=== PATIENT | male | born 1955 | race Caucasian/White ===

== ENCOUNTER → 2017-02-09 | Outpatient (CLI) | payer BC ==
[2017-02-09 17:26] LABS: EKG EKG PERFORMED
[2017-02-09 17:42] LABS: CH 30.3; CHCM 32.8; HCT 43.8 % (39.0-53.0); HDW 2.48; MCH 31.8 pg (25.0-35.0); MCHC 34.3 g/dL (31.0-37.0); MCV 92.8 fL (80.0-100.0); Mean Platelet Volume 8.5; RBC 4.72 m/uL (4.30-5.90); RDW 12.8 % (11.5-15.5); WBC 12.1 k/uL (3.8-10.6)
[2017-02-09 18:00] LABS: ALT 43 U/L (21-72); AST 27 U/L (17-59); Alkaline Phosphatase 89 U/L (38-126); Anion Gap 13 mmol/L; Blood Urea Nitrogen 22 mg/dL (9-20); Calcium 9.9 mg/dL (8.4-10.2); Carbon Dioxide 25 mmol/L (22-30); Chloride 108 mmol/L (98-107); Cholesterol 158 mg/dL (<200); Glucose 96 mg/dL (74-99); HDL Cholesterol 54 mg/dL (40-60); Iron 75 ug/dL (49-181); Non-African American GFR(MDRD) >60 (>60 ml/min/1.73 sqM); Potassium 4.5 mmol/L (3.5-5.1); Sodium 146 mmol/L (137-145); Total Bilirubin 0.4 mg/dL (0.2-1.3); Total Protein 7.3 g/dL (6.3-8.2)
[2017-02-09 18:10] LABS: Total Iron Binding Capacity 289 ug/dL (261-462)
[2017-02-09 19:05] LABS: Vitamin B12 685 pg/mL (239-931)
[2017-02-09 21:19] LABS: Hemoglobin A1C 5.7 % (4.2-6.1)
[2017-02-10 11:43] VITALS: BP 130/61; PULSE 81; TEMP 98.4; BMI 44.9
--- NOTE | 2017-03-05 22:55 | P.PN ---
Progress Note - Text DATE OF SERVICE: 02/09/2017 CHIEF COMPLAINT: Initial bariatric assessment. HISTORY OF PRESENT ILLNESS: Oral Retana is a 61-year-old male who presents for the first time at the bariatric center. He comes in with concerns of gastroesophageal reflux disease for over 30 years. He has been on Protonix. He had a previous upper endoscopy many years ago. His highest weight was 305 pounds. His personal goal is to get under 200 pounds. He has history of asthma exacerbated by his reflux disease. He also reports developing sleep apnea, hypertension, including diabetes from his obesity. He has a family history of gallbladder disease in his mother including father who both had cholecystectomy. He currently goes to a gym at least once a week. Now he presents for surgical evaluation particularly for a gastric bypass. PAST MEDICAL HISTORY: 1. Asthma 2. Coronary artery disease. 3. Hyperlipidemia. 4. Hypertension. 5. Sleep apnea. 6. Lung cancer. PAST SURGICAL HISTORY: 1. EGD 2. Appendectomy 3. Bowel resection 4. Heart catheterization 5. Left carpal tunnel surgery. 6. Retina Surgery. MEDICATIONS: 1. Albuterol inhaler. 2. [place] 3. Albuterol nebulizer 4. Tylenol 5. Sulfasalazine 6. Breo Ellipta inhaler. 7. Aspirin 8. Etodolac 9. Protonix 10. Losartan Hydrochlorothiazide 11. Zoloft 12. Verapamil 13. Bentyl 14. Cardura 15. Singulair. ALLERGIES: Denies. SOCIAL HISTORY: No current tobacco use. FAMILY HISTORY: Significant for diabetes and gallbladder disease.. REVIEW OF ORGAN SYSTEMS: CONSTITUTIONAL: His highest weight for 5-foot, 9-inch frame was 305 pounds. [place] body weight is 168 pounds. He is 136 pounds overweight. His body mass index is 45. GASTROINTESTINAL: No gastroesophageal reflux disease. No constipation or diarrhea. ENDOCRINE: Has diabetes. Has thyroid issues. MUSCULOSKELETAL: Has osteoarthritis of the bilateral knees. Has lower back pain. HEENT: Denies any troubles with vision. Denies any tinnitus. RESPIRATORY: Has asthma. Has obstructive sleep apnea. CARDIOVASCULAR: Has hypertension including hyperlipidemia. NEURO: Denies any numbness or tingling of the lower extremities. No reports of strokes. PSYCH: History of anxiety including depression. HEMATOLOGIC: No reports of easy bruising or easy bleeding. SKIN: No skin cancer or recent rash. PHYSICAL EXAM: VITAL SIGNS: 5 feet 9 inch, 304 pounds. Body mass index 45.0. Vital Signs 02/09/17 11:36 Temperature 98.4 F Pulse Rate 81 Blood Pressure 130/61 GENERAL: Well-developed male in no acute distress. ABDOMEN: No palpable incisional hernias. Soft, nontender, nondistended. MUSCULOSKELETAL: Bilateral 1+ trace pitting edema. No clubbing, cyanosis. HEENT: No sclera icterus. Extraocular movements grossly intact. Moist buccal mucosa. Head is atraumatic, normocephalic. Hears conversational speech. No nasal drainage. NECK: Supple without lymphadenopathy. No JV distention. CHEST: Non-labored respirations and equal bilateral excursions. CARDIOVASCULAR: Regular rate and rhythm. Palpable 2+ radial pulses. NEUROLOGIC: No focal or lateralizing signs. Cranial nerves II through XII grossly intact. PSYCH: Appropriate affect. Alert and oriented to person, place and time. SKIN: Good skin turgor. Well-perfused. LABS: Laboratory Last Values WBC 12.1 k/uL (3.8-10.6) H 02/09/17 17:19 RBC 4.72 m/uL (4.30-5.90) 02/09/17 17:19 Hgb 15.0 gm/dL (13.0-17.5) 02/09/17 17:19 Hct 43.8 % (39.0-53.0) 02/09/17 17:19 MCV 92.8 fL (80.0-100.0) 02/09/17 17:19 MCH 31.8 pg (25.0-35.0) 02/09/17 17: MCHC 34.3 g/dL (31.0-37.0) 02/09/17 17:19 RDW 12.8 % (11.5-15.5) 02/09/17 17:19 Plt Count 190 k/uL (150-450) 02/09/17 17:19 Sodium 146 mmol/L (137-145) H 02/09/17 17:19 Potassium 4.5 mmol/L (3.5-5.1) 02/09/17 17:19 Chloride 108 mmol/L (98-107) H 02/09/17 17:19 Carbon Dioxide 25 mmol/L (22-30) 02/09/17 17:19 Anion Gap 13 mmol/L 02/09/17 17:19 BUN 22 mg/dL (9-20) H 02/09/17 17:19 Creatinine 0.90 mg/dL (0.66-1.25) 02/09/17 17:19 Est GFR (MDRD) Af Amer >60 (>60 ml/min/1.73 sqM) 02/09/17 17:19 Est GFR (MDRD) Non-Af >60 (>60 ml/min/1.73 sqM) 02/09/17 17:19 Glucose 96 mg/dL (74-99) 02/09/17 17:[address] Glu mg/dL 117 mg/dL 02/09/17 17:19 Hemoglobin A1c 5.7 % (4.2-6.1) 02/09/17 17: Calcium 9.9 mg/dL (8.4-10.2) 02/09/17 17: Iron 75 ug/dL (49-181) 02/09/17 17: TIBC 289 ug/dL (261-462) 02/09/17 17: % Saturation 26.0 % (20-50) 02/09/17 17: Ferritin 156 ng/mL (18-464) 02/09/17 17:19 Total Bilirubin 0.4 mg/dL (0.2-1.3) 02/09/17 17:19 AST 27 U/L (17-59) 02/09/17 17:19 ALT 43 U/L (21-72) 02/09/17 17:19 Alkaline Phosphatase 89 U/L (38-126) 02/09/17 17:19 Total Protein 7.3 g/dL (6.3-8.2) 02/09/17 17:19 Albumin 4.5 g/dL (3.5-5.0) 02/09/17 17:19 Triglycerides 241 mg/dL (<150) H 02/09/17 17:19 Cholesterol 158 mg/dL (<200) 02/09/17 17:19 LDL Cholesterol, Calc 56 mg/dL (0-99) 02/09/17 17:19 HDL Cholesterol 54 mg/dL (40-60) 02/09/17 17:19 Vitamin B1 72 ug/L (38-122) 02/09/17 17:19 Vitamin B12 685 pg/mL (239-931) 02/09/17 17:19 Vitamin D 25-Hydroxy 30.8 ng/mL (30.0-100.0) 02/09/17 17:19 Folate 10.10 ng/mL (>2.75) 02/09/17 17:19 TSH 2.640 mIU/L (0.465-4.680) 02/09/17 17: U Nicotine Metabolite Negative 02/09/17 17:19 EKG EKG PERFORMED 02/09/17 17:19 EKG: History of lateral ischemia, ectopy with abnormal findings. ASSESSMENT: 1. Morbid obesity due to excess caloric intake. 2. Body mass index reduced 45.0. 3. Severe gastroesophageal reflux disease. 4. Coronary artery disease. 5. Osteoarthritis of the bilateral knees secondary to morbid obesity. 6. Asthma. 7. Hypertensive heart disease with coagulopathy. 8. Obstructive sleep apnea. 9. Past history of bowel surgery. 10. Ulcerative colitis. 11. Family history of gallbladder disease. 12. Personal history of past lung cancer. 13. Dietary surveillance and counseling. PLAN: 1. Recommend bariatric metabolic panel. 2. All surgical options including band, sleeve and Jessica-en-Y gastric bypass was described in detail. With his history of severe gastroesophageal reflux disease, he is looking into a gastric bypass. 3. The [place] bariat[facility] surgical collaborative data was also reviewed for resolution of comorbidities including risks. 4. Recommend dietary surveillance and counseling for 6 months. 5. Recommend EKG assessment for history of baseline cardiac disease. 6. Will need cardiac clearance. 7. Will need medical risk assessment. 8. Psych assessment per insurance guidelines. 9. He has CPAP for obstructive sleep apnea. 10. Recommend screening for gallbladder disorder with his strong family history of gallbladder disease.
== END | disposition home or self-care (01) ==
LOC: BARWHC3 14:46
PROVIDERS: ATTEND Surgery Plastic and Reconstructive Surgery
DX: Z48.815 Encounter for surgical aftercare following surgery on the digestive system (principal); E66.01 Morbid (severe) obesity due to excess calories; K21.9 Gastro-esophageal reflux disease without esophagitis; I25.10 Atherosclerotic heart disease of native coronary artery without angina pectoris; M17.0 Bilateral primary osteoarthritis of knee; I11.9 Hypertensive heart disease without heart failure; G47.33 Obstructive sleep apnea (adult) (pediatric); K51.90 Ulcerative colitis, unspecified, without complications; K82.8 Other specified diseases of gallbladder; J45.909 Unspecified asthma, uncomplicated; E89.1 Postprocedural hypoinsulinemia; D50.8 Other iron deficiency anemias; E44.0 Moderate protein-calorie malnutrition; E55.9 Vitamin D deficiency, unspecified; Z68.41 Body mass index [BMI] 40.0-44.9, adult; Z79.51 Long term (current) use of inhaled steroids; Z79.82 Long term (current) use of aspirin; Z79.899 Other long term (current) drug therapy; Z98.84 Bariatric surgery status
CPT/HCPCS: 36415; 80053; 80061; 80307; 82306; 82607; 82728; 82746; 83036; 83540; 83550; 84425; 84443; 85027; 93005; 99211

== ENCOUNTER 2017-03-02 08:11 | Day surgery (SDC) | payer BC ==
[2017-02-28 12:42] VITALS: BMI 42.2
[~2017-03-02 08:11] MED LIST: LACTATED RINGERS 1,000 ML IV SCH; LIDOCAINE 1% 20 ML VIAL (10MG/ML) FOR IV START INTRADERMA PRN
--- NOTE | 2017-03-02 08:29 | P.GSHP ---
History of Present Illness H&P Date: 03/02/17 CHIEF COMPLAINT: GERD HISTORY OF PRESENT ILLNESS: The patient is a 61-year-old male who presents reports gastroesophageal reflux disease. Upper endoscopy was offered for further evaluation and management. PAST MEDICAL HISTORY: Please see list. PAST SURGICAL HISTORY: Please see list. MEDICATIONS: Please see list. ALLERGIES: Please see list. SOCIAL HISTORY: No illicit drug use FAMILY HISTORY: No reports of Crohn disease or ulcerative colitis. REVIEW OF ORGAN SYSTEMS: CONSTITUTIONAL: No reports of fevers or chills. GI: Denies any blood in stools or constipation. PHYSICAL EXAM: VITAL SIGNS: Stable GENERAL: Well-developed and pleasant in no acute distress. HEENT: No scleral icterus. Extraocular movements grossly intact. Moist buccal mucosa. NECK: Supple without lymphadenopathy. CHEST: Unlabored respirations. Equal bilateral excursions. CARDIOVASCULAR: Regular rate and rhythm. Distal 2+ pulses. ABDOMEN: Soft, nondistended. MUSCULOSKELETAL: No clubbing, cyanosis, or edema. ASSESSMENT: 1. Gastroesophageal reflux disease PLAN: 1. Recommend proceeding with an upper endoscopy Past Medical History Past Medical History: Asthma, Coronary Artery Disease (CAD), GERD/Reflux, Hyperlipidemia, Hypertension, Prostate Disorder, Sleep Apnea/CPAP/BIPAP Additional Past Medical History / Comment(s): uses CPAP, IBS, lung nodule-dr. monitoring History of Any Multi-Drug Resistant Organisms: None Reported Past Surgical History: Appendectomy, Bowel Resection, Heart Catheterization, Orthopedic Surgery Additional Past Surgical History / Comment(s): repair detached retina recently, left carpal tunnel surgery,sinus surg. Past Anesthesia/Blood Transfusion Reactions: No Reported Reaction Smoking Status: Former smoker - Past Family History Mother Additional Family Medical History / Comment(s): hx. of blood clot somewhere Medications and Allergies Home Medications Medication Instructions Recorded Confirmed Type Acetaminophen Tab [Tylenol] 500 mg PO Q4-6H PRN 02/10/17 02/28/17 History Albuterol Inhaler [Ventolin Hfa 1 puff INHALATION Q6H PRN 02/10/17 02/28/17 History Inhaler] Albuterol Sulfate (Bottle) 1 puff INHALATION Q6H PRN 02/10/17 02/28/17 History [Ventolin] Aspirin 325 mg PO DAILY 02/10/17 02/28/17 History Dicyclomine [Bentyl] 20 mg PO BID 02/10/17 02/28/17 History Doxazosin Mesylate [Cardura] 8 mg PO HS 02/10/17 02/28/17 History Etodolac [Lodine] 800 mg PO DAILY 02/10/17 02/28/17 History Finasteride [Proscar] 5 mg PO DAILY 02/10/17 02/28/17 History Fluticasone/Vilanterol [Breo 1 tab PO DAILY 02/10/17 02/28/17 History Ellipta 100-25 Mcg Inhaler] HYDROcodone/APAP 5-325MG [[place] 1 tab PO Q6H PRN 02/10/17 02/28/17 History 5-325] Losartan/Hydrochlorothiazide 1 tab PO DAILY 02/10/17 02/28/17 History [Hyzaar 100-25 Tablet] Montelukast [Singulair] 10 mg PO DAILY 02/10/17 02/28/17 History Pantoprazole Sodium [Protonix] 40 mg PO DAILY 02/10/17 02/28/17 History Sertraline [Zoloft] 150 mg PO DAILY 02/10/17 02/28/17 History Verapamil HCl [Verapamil ER] 240 mg PO DAILY 02/10/17 02/28/17 History sulfaSALAzine [Azulfidine] 1,000 mg PO BID 02/10/17 02/28/17 History Allergies Allergy/AdvReac Type Severity Reaction Status Date / Time No Known Allergies Allergy Verified 02/28/17 12:36
[2017-03-02 08:40] VITALS: TEMP 97.6
[2017-03-02] MEDS ORDERED: GLYCOPYRROLATE 0.2 MG/ML 2 ML VIAL ONE (09:04)
[2017-03-02] MEDS ORDERED: LIDOCAINE 1% INJ 10MG/ML (20 ML MDV) ONE (09:04)
[2017-03-02] MEDS ORDERED: KETAMINE 10 MG/ML 20 ML VIAL ONE (09:04)
[2017-03-02] MEDS ORDERED: PROPOFOL 10 MG/ML 20 ML VIAL IV ONE (09:04)
[2017-03-02 10:00] VITALS: BP 136/82; PULSE 90; RESP 24
--- NOTE | 2017-03-04 15:24 | P.PCN ---
Date of Procedure: 03/02/17 Preoperative Diagnosis: Postoperative Diagnosis: Procedure(s) Performed: Implants: Indications for Procedure: Operative Findings: Description of Procedure: PREOPERATIVE DIAGNOSIS: Gastroesophageal reflux disease. Morbid obesity. POSTOPERATIVE DIAGNOSIS: Morbid obesity. Gastritis. Gastroesophageal reflux disease. Diaphragmatic hiatal hernia without obstruction. OPERATION: Esophagogastroduodenoscopy with biopsies along antrum. SURGEON: Kandi Calzada MD ANESTHESIA: MAC. INDICATIONS: The patient is a 61-year-old male who presents with a history of reflux disease. Benefits and risks of the procedure were described. Informed consent was obtained. DESCRIPTION: The patient was brought into the endoscopy suite and laid in the left lateral decubitus position. An Olympus gastroscope was passed along the posterior oropharynx down to the distal esophagus where the squamocolumnar junction was encountered at 40 cm from the incisors. The stomach was entered and no bile reflux was found. Additional findings are listed below. Biopsies with cold forceps were obtained of the antrum. The first through third portion of the duodenum was examined and unremarkable. Retroflexion of the scope confirmed Hill grade 4 lower esophageal valve. The squamocolumnar junction demostrated LA grade A erosive esophagitis. The stomach was desufflated. The patient tolerated the procedure well. FINDINGS: Squamocolumnar junction 40 cm from the incisors. Diaphragmatic hiatus at 42 cm. Hiatal hernia 2 cm, sliding hiatal hernia. Hill grade 4 lower esophageal valve. LA grade A erosive esophagitis. No active duodenitis. Chronic gastritis. RECOMMENDATIONS: Continue medical therapy. Further recommendations pending results of pathology report. Upper endoscopy as needed. Plan - Discharge Summary New Discharge Prescriptions: No Action Montelukast [Singulair] 10 mg PO DAILY Doxazosin Mesylate [Cardura] 8 mg PO HS Dicyclomine [Bentyl] 20 mg PO BID Verapamil HCl [Verapamil ER] 240 mg PO DAILY Sertraline [Zoloft] 150 mg PO DAILY Losartan/Hydrochlorothiazide [Hyzaar 100-25 Tablet] 1 tab PO DAILY Pantoprazole Sodium [Protonix] 40 mg PO DAILY Etodolac [Lodine] 800 mg PO DAILY Aspirin 325 mg PO DAILY Finasteride [Proscar] 5 mg PO DAILY sulfaSALAzine [Azulfidine] 1,000 mg PO BID Fluticasone/Vilanterol [Breo Ellipta 100-25 Mcg Inhaler] 1 tab PO DAILY Albuterol Sulfate (Bottle) [Ventolin] 1 puff INHALATION Q6H PRN PRN Reason: Dyspnea Acetaminophen Tab [Tylenol] 500 mg PO Q4-6H PRN PRN Reason: Pain HYDROcodone/APAP 5-325MG [[place] 5-325] 1 tab PO Q6H PRN PRN Reason: Pain Albuterol Inhaler [Ventolin Hfa Inhaler] 1 puff INHALATION Q6H PRN PRN Reason: Dyspnea Discharge Medication List Acetaminophen Tab [Tylenol] 500 mg PO Q4-6H PRN 02/10/17 [History] Albuterol Inhaler [Ventolin Hfa Inhaler] 1 puff INHALATION Q6H PRN 02/10/17 [ History] Albuterol Sulfate (Bottle) [Ventolin] 1 puff INHALATION Q6H PRN 02/10/17 [ History] Aspirin 325 mg PO DAILY 02/10/17 [History] Dicyclomine [Bentyl] 20 mg PO BID 02/10/17 [History] Doxazosin Mesylate [Cardura] 8 mg PO HS 02/10/17 [History] Etodolac [Lodine] 800 mg PO DAILY 02/10/17 [History] Finasteride [Proscar] 5 mg PO DAILY 02/10/17 [History] Fluticasone/Vilanterol [Breo Ellipta 100-25 Mcg Inhaler] 1 tab PO DAILY [History] HYDROcodone/APAP 5-325MG [[place] 5-325] 1 tab PO Q6H PRN 02/10/17 [History] Losartan/Hydrochlorothiazide [Hyzaar 100-25 Tablet] 1 tab PO DAILY 02/10/17 [ History] Montelukast [Singulair] 10 mg PO DAILY 02/10/17 [History] Pantoprazole Sodium [Protonix] 40 mg PO DAILY 02/10/17 [History] Sertraline [Zoloft] 150 mg PO DAILY 02/10/17 [History] Verapamil HCl [Verapamil ER] 240 mg PO DAILY 02/10/17 [History] sulfaSALAzine [Azulfidine] 1,000 mg PO BID 02/10/17 [History]
== END 2017-03-02 10:01 | disposition home or self-care (01) ==
LOC: ORWHC2ENDO 08:11
PROVIDERS: ATTEND Surgery Plastic and Reconstructive Surgery
DX: K22.10 Ulcer of esophagus without bleeding (principal); K29.50 Unspecified chronic gastritis without bleeding; K31.89 Other diseases of stomach and duodenum; K44.9 Diaphragmatic hernia without obstruction or gangrene; J45.909 Unspecified asthma, uncomplicated; Z87.891 Personal history of nicotine dependence; I25.10 Atherosclerotic heart disease of native coronary artery without angina pectoris; I10 Essential (primary) hypertension; N42.9 Disorder of prostate, unspecified; G47.33 Obstructive sleep apnea (adult) (pediatric); Z99.89 Dependence on other enabling machines and devices; Z79.82 Long term (current) use of aspirin; Z79.1 Long term (current) use of non-steroidal anti-inflammatories (NSAID); Z79.51 Long term (current) use of inhaled steroids; Z79.899 Other long term (current) drug therapy
CPT/HCPCS: 88305; 88342; 43239; J2001; J2704

== ENCOUNTER → 2017-03-16 | Outpatient (CLI) | payer BC ==
[2017-03-16 15:13] VITALS: BP 143/75; PULSE 76; RESP 16; TEMP 97.9; BMI 44.7
--- NOTE | 2017-04-23 15:01 | P.PN ---
Progress Note - Text DATE OF SERVICE: 03/16/2017 CHIEF COMPLAINT: Initial bariatric assessment. HISTORY OF PRESENT ILLNESS: Oral Retana is a 61-year-old male who initially presented to the bariatric center in January 2017. Since then, he has lost 2 pounds. He recently had eye surgery. At his height of 5 foot 9 inches, he comes in today weighing 302 pounds. He has lost 3 pounds in 2 months. His ideal body weight is 168 pounds. He is 134 pounds overweight. Body mass index is reduced from 45.1 down 44.7. As a result of his obesity, he has developed obstructive sleep apnea, hypertension, diabetes type 2 and has gastroesophageal disease. He has completed an upper endoscopy. He is looking into a sleeve gastrectomy instead of her gastric bypass. His personal goal is to come off all his medications for his diabetes. PAST MEDICAL HISTORY: 1. Asthma 2. Coronary artery disease. 3. Hyperlipidemia. 4. Hypertension. 5. Sleep apnea. 6. Lung cancer. 7. Gastroesophageal reflux disease. PAST SURGICAL HISTORY: 1. EGD 2. Appendectomy 3. Bowel resection 4. Heart catheterization 5. Left carpal tunnel surgery. 6. Retina Surgery. MEDICATIONS: 1. Albuterol inhaler. 2. [place] 3. Albuterol nebulizer 4. Tylenol 5. Sulfasalazine 6. Breo Ellipta inhaler. 7. Aspirin 8. Etodolac 9. Protonix 10. Losartan Hydrochlorothiazide 11. Zoloft 12. Verapamil 13. Bentyl 14. Cardura 15. Singulair. ALLERGIES: Denies. SOCIAL HISTORY: No current tobacco use. FAMILY HISTORY: Significant for diabetes and gallbladder disease.. REVIEW OF ORGAN SYSTEMS: CONSTITUTIONAL: His highest weight for 5-foot, 9-inch frame was 305 pounds. Max body weight is 168 pounds. He is 134 pounds overweight. His body mass index is 44.7 GASTROINTESTINAL: No gastroesophageal reflux disease. No constipation or diarrhea. ENDOCRINE: Has diabetes. Has thyroid issues. MUSCULOSKELETAL: Has osteoarthritis of the bilateral knees. Has lower back pain. HEENT: Denies any troubles with vision. Denies any tinnitus. RESPIRATORY: Has asthma. Has obstructive sleep apnea. CARDIOVASCULAR: Has hypertension including hyperlipidemia. NEURO: Denies any numbness or tingling of the lower extremities. No reports of strokes. PSYCH: History of anxiety including depression. HEMATOLOGIC: No reports of easy bruising or easy bleeding. SKIN: No skin cancer or recent rash. PHYSICAL EXAM: VITAL SIGNS: 5 feet 9 inch, 302 pounds. Body mass index 44.7. Vital Signs Temp 97.9 F 03/16/17 15:05 Pulse 76 03/16/17 15:05 Resp 16 03/16/17 15:05 BP 143/75 03/16/17 15:05 Pulse Ox GENERAL: Well-developed male in no acute distress. ABDOMEN: No palpable incisional hernias. Soft, nontender, nondistended. MUSCULOSKELETAL: Bilateral 1+ trace pitting edema. No clubbing, cyanosis. HEENT: No sclera icterus. Extraocular movements grossly intact. Moist buccal mucosa. Head is atraumatic, normocephalic. Hears conversational speech. No nasal drainage. NECK: Supple without lymphadenopathy. No JV distention. CHEST: Non-labored respirations and equal bilateral excursions. CARDIOVASCULAR: Regular rate and rhythm. Palpable 2+ radial pulses. NEUROLOGIC: No focal or lateralizing signs. Cranial nerves II through XII grossly intact. PSYCH: Appropriate affect. Alert and oriented to person, place and time. SKIN: Good skin turgor. Well-perfused. LABS: Reviewed demonstrating leukocytosis. Also moderately elevated triglyceride levels. Laboratory Last Values WBC 12.1 k/uL (3.8-10.6) H 02/09/17 17:19 RBC 4.72 m/uL (4.30-5.90) 02/09/17 17:19 Hgb 15.0 gm/dL (13.0-17.5) 02/09/17 17:19 Hct 43.8 % (39.0-53.0) 02/09/17 17:19 MCV 92.8 fL (80.0-100.0) 02/09/17 17:19 MCH 31.8 pg (25.0-35.0) 02/09/17 17:19 MCHC 34.3 g/dL (31.0-37.0) 02/09/17 17:19 RDW 12.8 % (11.5-15.5) 02/09/17 17:19 Plt Count 190 k/uL (150-450) 02/09/17 17:19 Sodium 146 mmol/L (137-145) H 02/09/17 17:19 Potassium 4.5 mmol/L (3.5-5.1) 02/09/17 17:19 Chloride 108 mmol/L (98-107) H 02/09/17 17:19 Carbon Dioxide 25 mmol/L (22-30) 02/09/17 17:19 Anion Gap 13 mmol/L 02/09/17 17:19 BUN 22 mg/dL (9-20) H 02/09/17 17:19 Creatinine 0.90 mg/dL (0.66-1.25) 02/09/17 17:19 Est GFR (MDRD) Af Amer >60 (>60 ml/min/1.73 sqM) 02/09/17 17:19 Est GFR (MDRD) Non-Af >60 (>60 ml/min/1.73 sqM) 02/09/17 17:19 Glucose 96 mg/dL (74-99) 02/09/17 17:[address] Glu mg/dL 117 mg/dL 02/09/17 17:19 Hemoglobin A1c 5.7 % (4.2-6.1) 02/09/17 17:19 Calcium 9.9 mg/dL (8.4-10.2) 02/09/17 17:19 Iron 75 ug/dL (49-181) 02/09/17 17:19 TIBC 289 ug/dL (261-462) 02/09/17 17:19 % Saturation 26.0 % (20-50) 02/09/17 17:19 Ferritin 156 ng/mL (18-464) 02/09/17 17:19 Total Bilirubin 0.4 mg/dL (0.2-1.3) 02/09/17 17:19 AST 27 U/L (17-59) 02/09/17 17:19 ALT 43 U/L (21-72) 02/09/17 17:19 Alkaline Phosphatase 89 U/L (38-126) 02/09/17 17:19 Total Protein 7.3 g/dL (6.3-8.2) 02/09/17 17:19 Albumin 4.5 g/dL (3.5-5.0) 02/09/17 17:19 Triglycerides 241 mg/dL (<150) H 02/09/17 17:19 Cholesterol 158 mg/dL (<200) 02/09/17 17: LDL Cholesterol, Calc 56 mg/dL (0-99) 02/09/17 17: HDL Cholesterol 54 mg/dL (40-60) 02/09/17 17: Vitamin B1 72 ug/L (38-122) 02/09/17 17: Vitamin B12 685 pg/mL (239-931) 02/09/17: Vitamin D 25-Hydroxy 30.8 ng/mL (30.0-100.0) 02/09/17 17: Folate 10.10 ng/mL (>2.75) 02/09/17 17: TSH 2.640 mIU/L (0.465-4.680) 02/09/17 U Nicotine Metabolite Negative 02/09/17 17: EKG EKG PERFORMED 02/09/17: EKG: History of lateral ischemia, ectopy with abnormal findings. EGD FINDINGS: Squamocolumnar junction 40 cm from the incisors. Diaphragmatic hiatus at 42 cm. Hiatal hernia 2 cm, sliding hiatal hernia. Hill grade 4 lower esophageal valve. LA grade A erosive esophagitis. No active duodenitis. Chronic gastritis. ASSESSMENT: 1. Morbid obesity due to excess caloric intake. 2. Body mass index reduced from 45.0 to 44.7. 3. Gastroesophageal reflux disease. 4. Coronary artery disease. 5. Osteoarthritis of the bilateral knees secondary to morbid obesity. 6. Asthma. 7. Hypertensive heart disease. 8. Obstructive sleep apnea. 11. Family history of gallbladder disease. 12. Abnormal EKG. 13. Dietary surveillance and counseling. 14. Diaphragmatic hiatal hernia. PLAN: 1. On review of his EKG, recommend cardiac risk assessment. 2. He is undergoing medically supervised weight loss per insurance guidelines of at least 6 months. 3. With his history of gastroesophageal reflux disease, he was forewarned for increased risk of symptoms post procedure following a sleeve gastrectomy. He demonstrated understanding of the risks. 4. He has elevated leukocytosis of unclear etiology. Will need repeat CBC. 5. Additionally, he has had eye surgery. Will need at minimum 30 days between procedures. 6. Follow up after completion of cardiac risk assessment.
== END | disposition home or self-care (01) ==
LOC: BARWHC3 14:47
PROVIDERS: ATTEND Surgery Plastic and Reconstructive Surgery
DX: Z48.815 Encounter for surgical aftercare following surgery on the digestive system (principal); E66.01 Morbid (severe) obesity due to excess calories; Z68.41 Body mass index [BMI] 40.0-44.9, adult; K21.9 Gastro-esophageal reflux disease without esophagitis; I25.10 Atherosclerotic heart disease of native coronary artery without angina pectoris; M17.0 Bilateral primary osteoarthritis of knee; I11.9 Hypertensive heart disease without heart failure; G47.33 Obstructive sleep apnea (adult) (pediatric); K44.9 Diaphragmatic hernia without obstruction or gangrene; R94.31 Abnormal electrocardiogram [ECG] [EKG]; J45.909 Unspecified asthma, uncomplicated; Z83.79 Family history of other diseases of the digestive system; Z79.899 Other long term (current) drug therapy; Z79.82 Long term (current) use of aspirin; Z79.1 Long term (current) use of non-steroidal anti-inflammatories (NSAID); Z85.118 Personal history of other malignant neoplasm of bronchus and lung; Z71.3 Dietary counseling and surveillance; Z98.84 Bariatric surgery status
CPT/HCPCS: 99211

== ENCOUNTER → 2017-06-01 | Outpatient (CLI) | payer BC ==
[2017-06-01 16:14] VITALS: BP 117/95; PULSE 77; RESP 16; TEMP 98.5; BMI 45.1
--- NOTE | 2017-07-25 20:42 | P.PN ---
Subjective Progress Note Date: 06/01/17 DATE OF SERVICE: 06/01/2017 CHIEF COMPLAINT: Bariatric assessment. HISTORY OF PRESENT ILLNESS: Oral Retana is a 61-year-old male who initially presented to the bariatric center in January 2017. His highest weight was 307 pounds. Today he comes in 305 pounds. His highest body mass index was 45.4. His ideal body weight is 168 pounds. He is 137 pounds overweight. He had completed cardiac risk assessment for abnormal EKG. His echocardiogram was within normal limits. Separately, he has severe gastroesophageal reflux disease and has been taking antacids for several decades. He also has a personal history of colitis including irritable bowel syndrome. He comes in today with complaints of an incisional ventral hernia. Separately, he is looking into sleeve gastrectomy. He also has history of a lung nodule. He has personal history of hiatal hernia. He now presents for further evaluation. PAST MEDICAL HISTORY: 1. Asthma 2. Coronary artery disease. 3. Hyperlipidemia. 4. Hypertension. 5. Sleep apnea. 6. Lung cancer. 7. Gastroesophageal reflux disease. PAST SURGICAL HISTORY: 1. EGD 2. Appendectomy 3. Bowel resection 4. Heart catheterization 5. Left carpal tunnel surgery. 6. Retina Surgery. MEDICATIONS: 1. Albuterol inhaler. 2. [place] 3. Albuterol nebulizer 4. Tylenol 5. Sulfasalazine 6. Breo Ellipta inhaler. 7. Aspirin 8. Etodolac 9. Protonix 10. Losartan Hydrochlorothiazide 11. Zoloft 12. Verapamil 13. Bentyl 14. Cardura 15. Singulair. ALLERGIES: Denies. SOCIAL HISTORY: No current tobacco use. FAMILY HISTORY: Significant for diabetes and gallbladder disease.. REVIEW OF ORGAN SYSTEMS: CONSTITUTIONAL: His highest weight for 5-foot, 9-inch frame was 307 pounds. [place] body weight is 168 pounds. He is 137 pounds overweight. His body mass index is 45.4. GASTROINTESTINAL: Has gastroesophageal reflux disease. No constipation or diarrhea. Has irritable bowel syndrome. ENDOCRINE: Has blood sugar close intolerance controlled with diet. No thyroid disorder. MUSCULOSKELETAL: Has osteoarthritis of the bilateral knees. Has lower back pain. HEENT: Denies any troubles with vision. Denies any tinnitus. RESPIRATORY: Has asthma. Has obstructive sleep apnea. CARDIOVASCULAR: Has hypertension including hyperlipidemia. NEURO: Denies any numbness or tingling of the lower extremities. No reports of strokes. PSYCH: History of anxiety including depression. HEMATOLOGIC: No reports of easy bruising or easy bleeding. SKIN: No skin cancer or recent rash. PHYSICAL EXAM: VITAL SIGNS: 5 feet 9 inch, 305 pounds. Body mass index 45.1. Vital Signs Temp 98.5 F 06/01/17 16:12 Pulse 77 06/01/17 16:12 Resp 16 06/01/17 16:12 BP 117/95 06/01/17 16:12 Pulse Ox GENERAL: Well-developed male in no acute distress. ABDOMEN: Soft, nontender, nondistended. Has 4 cm umbilical ventral hernia. MUSCULOSKELETAL: No clubbing, cyanosis or edema. HEENT: No sclera icterus. Extraocular movements grossly intact. Moist buccal mucosa. Head is atraumatic, normocephalic. Hears conversational speech. No nasal drainage. NECK: Supple without lymphadenopathy. No JV distention. CHEST: Non-labored respirations and equal bilateral excursions. CARDIOVASCULAR: Regular rate and rhythm. Palpable 2+ radial pulses. NEUROLOGIC: No focal or lateralizing signs. Cranial nerves II through XII grossly intact. PSYCH: Appropriate affect. Alert and oriented to person, place and time. SKIN: Good skin turgor. Well-perfused. EKG: History of lateral ischemia, ectopy with abnormal findings. EGD FINDINGS: Squamocolumnar junction 40 cm from the incisors. Diaphragmatic hiatus at 42 cm. Hiatal hernia 2 cm, sliding hiatal hernia. Hill grade 4 lower esophageal valve. ASSESSMENT: 1. Morbid obesity due to excess caloric intake. 2. Body mass index 45.1. 3. Gastroesophageal reflux disease. 4. Coronary artery disease. 5. Osteoarthritis of the bilateral knees secondary to morbid obesity. 6. Asthma. 7. Hypertensive heart disease. 8. Obstructive sleep apnea. 11. Family history of gallbladder disease. 12. Abnormal EKG. 13. Dietary surveillance and counseling. 14. Diaphragmatic hiatal hernia. 15. History of lung cancer with pulmonary nodule. PLAN: 1. As the patient has history of lung cancer, agree with CT of the chest for follow-up of pulmonary nodule. 2. Recommend CT of the abdomen and pelvis for history of ventral hernia. 3. He has history of hiatal hernia and symptomatic gastroesophageal reflux disease, recommend robotic-assisted laparoscopic hiatal hernia repair with mesh. 4. Additionally, recommend laparoscopic versus open ventral hernia repair. 5. He is looking into sleeve gastrectomy and recommend treatment of his reflux disease. 6. DVT prophylaxis. 7. Antibiotic prophylaxis. 8. Inpatient hospitalization for 2 nights. Objective - Vital Signs Vital signs: Vital Signs Temp 98.5 F 06/01/17 16:12 Pulse 77 06/01/17 16:12 Resp 16 06/01/17 16:12 BP 117/95 06/01/17 16:12 Pulse Ox Intake & Output 05/31/17 06/01/17 06/01/17 18:59 06:59 18:59 Weight 138.516 kg
== END ==
LOC: BARWHC3 14:57
PROVIDERS: ATTEND Surgery Plastic and Reconstructive Surgery
DX: Z48.815 Encounter for surgical aftercare following surgery on the digestive system (principal); E66.01 Morbid (severe) obesity due to excess calories; K21.9 Gastro-esophageal reflux disease without esophagitis; I25.10 Atherosclerotic heart disease of native coronary artery without angina pectoris; M17.0 Bilateral primary osteoarthritis of knee; J45.909 Unspecified asthma, uncomplicated; I11.9 Hypertensive heart disease without heart failure; G47.33 Obstructive sleep apnea (adult) (pediatric); R94.31 Abnormal electrocardiogram [ECG] [EKG]; K44.9 Diaphragmatic hernia without obstruction or gangrene; E78.5 Hyperlipidemia, unspecified; R91.1 Solitary pulmonary nodule; Z68.42 Body mass index [BMI] 45.0-49.9, adult; Z85.118 Personal history of other malignant neoplasm of bronchus and lung; Z79.899 Other long term (current) drug therapy; Z79.82 Long term (current) use of aspirin; Z79.1 Long term (current) use of non-steroidal anti-inflammatories (NSAID); Z71.3 Dietary counseling and surveillance; Z98.890 Other specified postprocedural states; Z90.89 Acquired absence of other organs
CPT/HCPCS: 99211

== ENCOUNTER → 2017-06-15 | Outpatient (CLI) | payer BC ==
[2017-06-15 09:07] LABS: Blood Urea Nitrogen 27 mg/dL (9-20); Non-African American GFR(MDRD) >60 (>60 ml/min/1.73 sqM)
--- NOTE | 2017-06-15 12:02 | US ---
EXAMINATION TYPE: US abdomen limited DATE OF EXAM: 06/15/2017 COMPARISON: NONE CLINICAL HISTORY: diverticulitis R10 abd pain. Bariatric prep. Patient states he has a lot of acid p roblems. NPO. Hx of bowel resection. EXAM MEASUREMENTS: Liver Length: 19.5 cm Gallbladder Wall: 0.3 cm CHD: 0.5 cm Right Kidney: 12.3 x 6.6 x 5.5 cm Limited exam due to overlying bowel gas and patient body habitus Pancreas: Obscured by bowel gas Liver: Enlarged. Echogenic and heterogenous in appearance. This finding limits evaluation for hepat ic masses although no focal masses or lesions identified. Gallbladder: wnl Evidence for sonographic Dior's sign: neg CBD: wnl as seen, suboptimal visualization due to overlying bowel gas Right Kidney: wnl IMPRESSION: 1. Findings most compatible with moderate degree hepatic steatosis. 2. No sonographic evidence of cholelithiasis or acute cholecystitis.
--- NOTE | 2017-06-15 15:07 | CT ---
EXAMINATION TYPE: CT ChestAbdPelvis w con DATE OF EXAM: 06/15/2017 INDICATION: Upper abdominal pain, diverticulitis, chest mass COMPARISON: NONE CT DLP: 3274.3 mGycm CONTRAST: Performed with Oral Contrast and with IV Contrast, patient injected with 100 mL of Omnipaque 300. TECHNIQUE: Axial images at 5 mm thick sections. Reconstructed images in the coronal plane. Delayed images through the kidneys. FINDINGS: CT CHEST: Portion of the thyroid visualized is normal. Subglottic airway is unremarkable. 0.3 cm punctate nodularities in the superior lateral right upper lung field. Series 3 image 23 lung w indows. A 0.4 cm nodules in the superior segment right lower lobe. Series 3 image 29 lung windows. Th ere is a 2.3 cm nodule which may have some central calcification in the right middle lobe periphery. Series 3 image 36 on lung windows. There is a 1.6 cm lymph node in the superior mediastinum adjacent to the trachea. Multiple small shot ty lymph nodes are present. There is a 1.4 cm lymph node within the pretracheal space above the level of the art near the aortic window level. Couple small right hilar lymph node may be present. Coronary artery calcification is noted. The ascending aorta diameter at the level of the main pulmonary artery is 3.2 cm. The main pulmonary artery diameter at the bifurcation is 2.[address] ABDOMEN: Liver: Normal Spleen: Normal Pancreas: Normal Adrenal glands: The medial limb left adrenal gland measures 1.4 cm. Left adrenal gland and right adre nal gland are otherwise unremarkable. Gallbladder: Normal Kidneys: No masses are evident. No hydronephrosis is present. There is a 7.4 cm cyst measuring 4 Ho unsfield units at superior lateral left kidney. Delayed images were obtained through the kidneys, wh ich remain unremarkable. Aorta: Vascular calcification is within the aorta. Inferior vena cava: Normal. CT PELVIS: Periumbilical hernia containing mesenteric fat is present. Loops of bowel within the abdomen and pelvis are normal. Scattered diverticuli are present through out the colon. There are loops of bowel which are incompletely distended or lack oral contrast limiti ng their evaluation. Appendix: Not identified Urinary bladder: Decompressed with limited evaluation. Genitourinary structures: Prostate is slightly prominent. Osseous structures: No suspicious lytic or sclerotic lesions. Facet hypertrophy is a lower lumbar spi ne. IMPRESSIONS: 1. Lung nodules discussed above. By history there has been the lung biopsy performed. 2. Diverticulosis without acute diverticulitis. 3. Patient's reported bowel resection is not identified. 4. Periumbilical fat-containing hernia.. 5. Superior left renal cyst
== END | disposition home or self-care (01) ==
LOC: RADUSMAIN 08:15
PROVIDERS: ATTEND Surgery Plastic and Reconstructive Surgery
DX: R91.8 Other nonspecific abnormal finding of lung field (principal); K57.90 Diverticulosis of intestine, part unspecified, without perforation or abscess without bleeding; K42.9 Umbilical hernia without obstruction or gangrene; N28.1 Cyst of kidney, acquired; K76.0 Fatty (change of) liver, not elsewhere classified; Z98.890 Other specified postprocedural states
CPT/HCPCS: 82565; 84520; 76705; 71260; 74177; 36415; Q9967

== ENCOUNTER → 2017-06-27 | Outpatient (CLI) | payer BC ==
[2017-06-27 12:37] VITALS: BMI 44.9
== END | disposition home or self-care (01) ==
LOC: BARWHC3 08:36
PROVIDERS: ATTEND Surgery Plastic and Reconstructive Surgery
DX: E66.01 Morbid (severe) obesity due to excess calories (principal)
CPT/HCPCS: 97804

== ENCOUNTER → 2017-07-06 | Outpatient (CLI) | payer BC ==
[2017-07-06 15:58] VITALS: BP 161/81; PULSE 93; RESP 16; TEMP 97.5; BMI 45.1
--- NOTE | 2017-08-22 21:46 | P.PN ---
Subjective Progress Note Date: 07/06/17 DATE OF SERVICE: 07/06/2017 CHIEF COMPLAINT: Bariatric assessment. HISTORY OF PRESENT ILLNESS: Oral Retana is a 61-year-old male who initially presented to the bariatric center in January 2017. His highest weight was 307 pounds. Today he comes in 305 pounds. His highest body mass index was 45.4. His ideal body weight is 168 pounds. He is 137 pounds overweight. He has complaints of pulmonary nodule including previous history of bowel resection and abdominal wall hernia. He completed a CT of the abdomen and pelvis. Separately, he reports chronic gastroesophageal reflux disease. He is contemplating the sleeve gastrectomy versus the gastric bypass. He comes in with additional comorbidities including coronary artery disease, hypertension, and obstructive sleep apnea as a result of his morbid obesity. Now presents for further evaluation and management. PAST MEDICAL HISTORY: 1. Asthma 2. Coronary artery disease. 3. Hyperlipidemia. 4. Hypertension. 5. Sleep apnea. 6. Lung cancer. 7. Gastroesophageal reflux disease. PAST SURGICAL HISTORY: 1. EGD 2. Appendectomy 3. Bowel resection 4. Heart catheterization 5. Left carpal tunnel surgery. 6. Retina Surgery. MEDICATIONS: 1. Albuterol inhaler. 2. [place] 3. Albuterol nebulizer 4. Tylenol 5. Sulfasalazine 6. Breo Ellipta inhaler. 7. Aspirin 8. Etodolac 9. Protonix 10. Losartan Hydrochlorothiazide 11. Zoloft 12. Verapamil 13. Bentyl 14. Cardura 15. Singulair. ALLERGIES: Denies. SOCIAL HISTORY: No current tobacco use. FAMILY HISTORY: Significant for diabetes and gallbladder disease.. REVIEW OF ORGAN SYSTEMS: CONSTITUTIONAL: His highest weight for 5-foot, 9-inch frame was 307 pounds. [place] body weight is 168 pounds. He is 137 pounds overweight. His body mass index is 45.4. GASTROINTESTINAL: Has gastroesophageal reflux disease. No constipation or diarrhea. Has irritable bowel syndrome. ENDOCRINE: Has blood sugar close intolerance controlled with diet. No thyroid disorder. MUSCULOSKELETAL: Has osteoarthritis of the bilateral knees. Has lower back pain. HEENT: Denies any troubles with vision. Denies any tinnitus. RESPIRATORY: Has asthma. Has obstructive sleep apnea. CARDIOVASCULAR: Has hypertension including hyperlipidemia. NEURO: Denies any numbness or tingling of the lower extremities. No reports of strokes. PSYCH: History of anxiety including depression. HEMATOLOGIC: No reports of easy bruising or easy bleeding. SKIN: No skin cancer or recent rash. PHYSICAL EXAM: VITAL SIGNS: 5 feet 9 inch, 305 pounds. Body mass index 45.1. Vital Signs Temp 97.5 F L 07/06/17 15:55 Pulse 93 07/06/17 15:55 Resp 16 07/06/17 15:55 BP 161/81 07/06/17 15:55 Pulse Ox GENERAL: Well-developed male in no acute distress. ABDOMEN: Soft, nontender, nondistended. Has 4 cm umbilical ventral hernia incarcerated. No skin changes. MUSCULOSKELETAL: No clubbing, cyanosis or edema. HEENT: No sclera icterus. Extraocular movements grossly intact. Moist buccal mucosa. Head is atraumatic, normocephalic. Hears conversational speech. No nasal drainage. NECK: Supple without lymphadenopathy. No JV distention. CHEST: Non-labored respirations and equal bilateral excursions. CARDIOVASCULAR: Regular rate and rhythm. Palpable 2+ radial pulses. NEUROLOGIC: No focal or lateralizing signs. Cranial nerves II through XII grossly intact. PSYCH: Appropriate affect. Alert and oriented to person, place and time. SKIN: Good skin turgor. Well-perfused. STUDIES: Ultrasound of the abdomen was obtained for his history of elevated liver enzymes. Findings consistent with fatty liver disease. CT of the chest, abdomen and pelvis were obtained demonstrating umbilical hernia sac containing. No evidence of bowel obstruction identified. Features consistent with diverticulosis of the sigmoid colon. ASSESSMENT: 1. Morbid obesity due to excess caloric intake. 2. Body mass index 45.1. 3. Gastroesophageal reflux disease. 4. Coronary artery disease. 5. Osteoarthritis of the bilateral knees secondary to morbid obesity. 6. Asthma. 7. Hypertensive heart disease. 8. Obstructive sleep apnea. 11. Family history of gallbladder disease. 12. Abnormal EKG. 13. Dietary surveillance and counseling. 14. Diaphragmatic hiatal hernia. 15. History of lung cancer with pulmonary nodule. 16. Incarcerated incisional ventral hernia. PLAN: 1. I have recommended obtaining a manometry as she is evaluating for a hiatal hernia repair to address his esophageal reflux disease. 2. Also recommend robotic-assisted hiatal hernia repair to address gastroesophageal reflux disease. 3. He has history of incarcerated incisional ventral hernia and recommend repair. 4. Recommend DVT prophylaxis. 5. Recommend antibiotic prophylaxis. 6. Inpatient hospitalization more than 2 nights advised. 7. Pending resolution and response to hiatal hernia repair, patient will give his decision on the sleeve gastrectomy versus gastric bypass. Objective - Vital Signs Vital signs: Vital Signs Temp 97.5 F L 07/06/17 15:55 Pulse 93 07/06/17 15:55 Resp 16 07/06/17 15:55 BP 161/81 07/06/17 15:55 Pulse Ox Intake & Output 07/05/17 07/06/17 07/06/17 18:59 06:59 18:59 Weight 138.544 kg
== END | disposition home or self-care (01) ==
LOC: BARWHC3 15:00
PROVIDERS: ATTEND Surgery Plastic and Reconstructive Surgery
DX: Z48.815 Encounter for surgical aftercare following surgery on the digestive system (principal); E66.01 Morbid (severe) obesity due to excess calories; I11.9 Hypertensive heart disease without heart failure; K21.9 Gastro-esophageal reflux disease without esophagitis; E78.5 Hyperlipidemia, unspecified; I25.10 Atherosclerotic heart disease of native coronary artery without angina pectoris; M17.0 Bilateral primary osteoarthritis of knee; G47.33 Obstructive sleep apnea (adult) (pediatric); J45.909 Unspecified asthma, uncomplicated; R94.31 Abnormal electrocardiogram [ECG] [EKG]; K44.9 Diaphragmatic hernia without obstruction or gangrene; K43.2 Incisional hernia without obstruction or gangrene; Z68.42 Body mass index [BMI] 45.0-49.9, adult; Z85.118 Personal history of other malignant neoplasm of bronchus and lung; Z79.891 Long term (current) use of opiate analgesic; Z79.899 Other long term (current) drug therapy; Z79.82 Long term (current) use of aspirin; Z71.3 Dietary counseling and surveillance
CPT/HCPCS: 99211

== ENCOUNTER → 2017-08-10 | Outpatient (CLI) | payer BC ==
[2017-08-10 15:38] VITALS: BP 120/59; PULSE 77; RESP 16; TEMP 98.5; BMI 41.2
--- NOTE | 2017-09-25 12:02 | P.PN ---
Subjective Progress Note Date: 08/10/17 DATE OF SERVICE: 08/10/2017 CHIEF COMPLAINT: Follow-up hiatal hernia repair HISTORY OF PRESENT ILLNESS: Oral Retana is a 62-year-old male who initially presented to the bariatric center in January 2017. His highest weight was 307 pounds. He presented with moderate reflux disease. He is looking into the sleeve gastrectomy. Given the severity of his reflux disease, he had a hiatal hernia repair including incisional hernia repair performed 07/22/2017. He has complete resolution of his gastroesophageal reflux disease. His no longer taking antireflux medications. His sleep has improved. Since his last visit one month ago, he has lost 26 pounds. Today he comes in 279 pounds. His highest body mass index was 45.4 and now is down to 41.2. His ideal body weight is 168 pounds. He is 111 pounds overweight. PHYSICAL EXAM: VITAL SIGNS: 5 feet 9 inch, 279 pounds. Body mass index 41.2 Vital Signs Temp 98.5 F 08/10/17 15:35 Pulse 77 08/10/17 15:35 Resp 16 08/10/17 15:35 BP 120/59 08/10/17 15:35 Pulse Ox GENERAL: Well-developed male in no acute distress. ABDOMEN: Soft, nontender, nondistended. No recurrent umbilical ventral hernia. Abdominal binder present. No signs of infection. MUSCULOSKELETAL: No clubbing, cyanosis or edema. HEENT: No sclera icterus. Extraocular movements grossly intact. Moist buccal mucosa. Head is atraumatic, normocephalic. Hears conversational speech. No nasal drainage. NECK: Supple without lymphadenopathy. No JV distention. CHEST: Non-labored respirations and equal bilateral excursions. CARDIOVASCULAR: Regular rate and rhythm. Palpable 2+ radial pulses. NEUROLOGIC: No focal or lateralizing signs. Cranial nerves II through XII grossly intact. PSYCH: Appropriate affect. Alert and oriented to person, place and time. SKIN: Good skin turgor. Well-perfused. ASSESSMENT: 1. Morbid obesity due to excess caloric intake. 2. Body mass index 41.2. 3. Dietary surveillance and counseling. 4. Status post hiatal hernia repair. 5. Status post ventral hernia repair PLAN: 1. He is diong extraordinarily well. 2. After a month since his hiatal hernia repair, he has no recurrence of his gastroesophageal reflux disease. 3. He has elected to proceed with a sleeve gastrectomy. Benefits and risks of the procedure was described in detail. Objective - Vital Signs Vital signs: Vital Signs Temp 98.5 F 08/10/17 15:35 Pulse 77 08/10/17 15:35 Resp 16 08/10/17 15:35 BP 120/59 08/10/17 15:35 Pulse Ox Intake & Output 08/09/17 08/10/17 08/10/17 18:59 06:59 18:59 Weight 126.666 kg
== END | disposition home or self-care (01) ==
LOC: BARWHC3 14:19
PROVIDERS: ATTEND Surgery Plastic and Reconstructive Surgery
DX: Z09 Encounter for follow-up examination after completed treatment for conditions other than malignant neoplasm (principal); K21.9 Gastro-esophageal reflux disease without esophagitis; E66.01 Morbid (severe) obesity due to excess calories; K43.2 Incisional hernia without obstruction or gangrene; Z71.3 Dietary counseling and surveillance; Z68.41 Body mass index [BMI] 40.0-44.9, adult; Z98.890 Other specified postprocedural states
CPT/HCPCS: 99211

== ENCOUNTER → 2017-09-07 | Outpatient (CLI) | payer BC ==
[2017-09-07 17:11] VITALS: BP 116/73; PULSE 91; RESP 16; TEMP 97.3; BMI 41.8
--- NOTE | 2017-09-25 12:09 | P.PN ---
Subjective Progress Note Date: 09/07/17 DATE OF SERVICE: 09/07/2017 CHIEF COMPLAINT: Bariatric evaluation HISTORY OF PRESENT ILLNESS: Oral Retana is a 62-year-old male who is status post hiatal hernia repair including incisional hernia repair performed 2016. He has no reports of recurrent gastroesophageal reflux disease. No reports of abdominal pain. No reports of recurrent incisional hernia. Since his last visit one month ago, he has gained 4 pounds. Total weight loss since being in the program is 22 pounds. His highest weight was 307 pounds. Today he comes in 283 pounds. His highest body mass index was 45.4 and now is down to 41.9. His ideal body weight is 168 pounds. He is 115 pounds overweight. PHYSICAL EXAM: VITAL SIGNS: 5 feet 9 inch, 283 pounds. Body mass index 41.9 Vital Signs Temp 97.3 F L 09/07/17 17:03 Pulse 91 09/07/17 17:03 Resp 16 09/07/17 17:03 BP 116/73 09/07/17 17:03 Pulse Ox GENERAL: Well-developed male in no acute distress. ABDOMEN: Soft, nontender, nondistended. No recurrent umbilical ventral hernia. MUSCULOSKELETAL: No clubbing, cyanosis or edema. HEENT: No sclera icterus. Extraocular movements grossly intact. Moist buccal mucosa. Head is atraumatic, normocephalic. Hears conversational speech. No nasal drainage. NECK: Supple without lymphadenopathy. No JV distention. CHEST: Non-labored respirations and equal bilateral excursions. CARDIOVASCULAR: Regular rate and rhythm. Palpable 2+ radial pulses. NEUROLOGIC: No focal or lateralizing signs. Cranial nerves II through XII grossly intact. PSYCH: Appropriate affect. Alert and oriented to person, place and time. SKIN: Good skin turgor. Well-perfused. ASSESSMENT: 1. Morbid obesity due to excess caloric intake. 2. Body mass index down from 45.1 to 41.9. 3. Dietary surveillance and counseling. 4. Status post hiatal hernia repair. 5. Status post ventral hernia repair 6. Hypertensive heart disease. 7. Obstructive sleep apnea. PLAN: 1. Benefits and risks of proceeding with sleeve gastrectomy was described. Possibility of recurrent gastroesophageal reflux disease was described. 2. An 8 page bariatric consent form was reviewed in detail. Increased risk of bleeding, infection, leaks were described in detail. 3. Inpatient hospitalization more than 2 nights described. 4. DVT prophylaxis. 5. Antibiotic prophylaxis.
== END | disposition home or self-care (01) ==
LOC: BARWHC3 15:31
PROVIDERS: ATTEND Surgery Plastic and Reconstructive Surgery
DX: E66.01 Morbid (severe) obesity due to excess calories (principal); I11.9 Hypertensive heart disease without heart failure; G47.33 Obstructive sleep apnea (adult) (pediatric); Z98.890 Other specified postprocedural states; Z68.41 Body mass index [BMI] 40.0-44.9, adult; Z71.3 Dietary counseling and surveillance
CPT/HCPCS: 99211

== ENCOUNTER → 2017-10-01 | Outpatient (CLI) | payer BC ==
[2017-10-01 12:07] LABS: Basophils # (A) 0.1 k/uL (0-0.2); Basophils % (A) 1 %; Eosinophils # (A) 0.3 k/uL (0-0.7); Eosinophils % (A) 4 %; HCT 42.6 % (39.0-53.0); HGB 13.9 gm/dL (13.0-17.5); Lymphocytes # (A) 1.7 k/uL (1.0-4.8); Lymphocytes % (A) 23 %; MCH 29.8 pg (25.0-35.0); MCHC 32.7 g/dL (31.0-37.0); MCV 91.2 fL (80.0-100.0); Mean Platelet Volume 8.4; Monocytes # (A) 0.6 k/uL (0-1.0); Monocytes % (A) 7 %; Neutrophils # (A) 4.9 k/uL (1.3-7.7); Neutrophils % (A) 64 %; Platelet Count 178 k/uL (150-450); RBC 4.68 m/uL (4.30-5.90); WBC 7.8 k/uL (3.8-10.6)
[2017-10-01 12:24] LABS: ALT 33 U/L (21-72); AST 24 U/L (17-59); Albumin 4.2 g/dL (3.5-5.0); Alkaline Phosphatase 82 U/L (38-126); Anion Gap 11 mmol/L; Blood Urea Nitrogen 27 mg/dL (9-20); Calcium 9.6 mg/dL (8.4-10.2); Carbon Dioxide 25 mmol/L (22-30); Chloride 105 mmol/L (98-107); Glucose 103 mg/dL (74-99); Potassium 4.8 mmol/L (3.5-5.1); Sodium 141 mmol/L (137-145); Total Bilirubin 0.4 mg/dL (0.2-1.3)
== END | disposition home or self-care (01) ==
LOC: LABPAT 11:20
PROVIDERS: ATTEND Surgery Plastic and Reconstructive Surgery
DX: Z01.812 Encounter for preprocedural laboratory examination (principal)
CPT/HCPCS: 36415; 80053; 85025; 86850; 86900; 86901

== ENCOUNTER 2017-10-10 07:58 | Inpatient (IN) | payer BC ==
--- NOTE | 2017-10-09 12:20 | P.PN ---
Progress Note - Text Progress Note Date: 10/09/17 Patient notified regarding change in OR schedule for tomorrow. Patient was requested to arrive to [facility] earlier than scheduled.
--- NOTE | 2017-10-09 12:27 | P.GSHP ---
History of Present Illness H&P Date: 10/10/17 DATE OF SERVICE: 10/10/2017 CHIEF COMPLAINT: Morbid obesity HISTORY OF PRESENT ILLNESS: Oral Retana is a 62-year-old male who initially presented to the bariatric center in January 2017. His highest weight was 307 pounds. His highest body mass index was 45.4. His ideal body weight is 168 pounds. He has lost 26 pounds during medical supervised weight loss. He has developed comorbidities including hypertension, sleep apnea, hyperlipidemia as a result of his morbid obesity. His gastroesophageal reflux disease has resolved following his hiatal hernia repair. He comes in today for a sleeve gastrectomy. PAST MEDICAL HISTORY: 1. Asthma 2. Coronary artery disease. 3. Hyperlipidemia. 4. Hypertension. 5. Sleep apnea. 6. Lung cancer. 7. Gastroesophageal reflux disease. PAST SURGICAL HISTORY: 1. EGD 2. Appendectomy 3. Bowel resection 4. Heart catheterization 5. Left carpal tunnel surgery. 6. Retina Surgery. 7. Hiatal hernia repair 8. Incisional hernia repair MEDICATIONS: 1. Albuterol inhaler. 2. [place] 3. Albuterol nebulizer 4. Tylenol 5. Sulfasalazine 6. Breo Ellipta inhaler. 7. Aspirin 8. Etodolac 9. Protonix 10. Losartan Hydrochlorothiazide 11. Zoloft 12. Verapamil 13. Bentyl 14. Cardura 15. Singulair. ALLERGIES: Denies. SOCIAL HISTORY: No current tobacco use. FAMILY HISTORY: Significant for diabetes and gallbladder disease.. REVIEW OF ORGAN SYSTEMS: CONSTITUTIONAL: His highest weight for 5-foot, 9-inch frame was 307 pounds. [place] body weight is 168 pounds. His body mass index was 45.4. GASTROINTESTINAL: Has gastroesophageal reflux disease. No constipation or diarrhea. Has irritable bowel syndrome. ENDOCRINE: Has blood sugar close intolerance controlled with diet. No thyroid disorder. MUSCULOSKELETAL: Has osteoarthritis of the bilateral knees. Has lower back pain. HEENT: Denies any troubles with vision. Denies any tinnitus. RESPIRATORY: Has asthma. Has obstructive sleep apnea. CARDIOVASCULAR: Has hypertension including hyperlipidemia. NEURO: Denies any numbness or tingling of the lower extremities. No reports of strokes. PSYCH: History of anxiety including depression. HEMATOLOGIC: No reports of easy bruising or easy bleeding. SKIN: No skin cancer or recent rash. PHYSICAL EXAM: VITAL SIGNS: 5 feet 9 inch, 279 pounds. Body mass index 41.3. GENERAL: Well-developed male in no acute distress. ABDOMEN: Soft, nontender, nondistended. MUSCULOSKELETAL: No clubbing, cyanosis or edema. HEENT: No sclera icterus. Extraocular movements grossly intact. Moist buccal mucosa. Head is atraumatic, normocephalic. Hears conversational speech. No nasal drainage. NECK: Supple without lymphadenopathy. No JV distention. CHEST: Non-labored respirations and equal bilateral excursions. CARDIOVASCULAR: Regular rate and rhythm. Palpable 2+ radial pulses. NEUROLOGIC: No focal or lateralizing signs. Cranial nerves II through XII grossly intact. PSYCH: Appropriate affect. Alert and oriented to person, place and time. SKIN: Good skin turgor. Well-perfused. ASSESSMENT: 1. Morbid obesity due to excess caloric intake. 2. Body mass index 45.1. 3. Medical supervised weight loss. 4. Coronary artery disease. 5. Osteoarthritis of the bilateral knees secondary to morbid obesity. 6. Asthma. 7. Hypertensive heart disease. 8. Obstructive sleep apnea. 11. Family history of gallbladder disease. 12. Status post heart catheterization. 13. Dietary surveillance and counseling. 14. s/p hiatal hernia. 15. History of lung cancer with pulmonary nodule. 16. s/p repair of incarcerated incisional ventral hernia. PLAN: 1. All surgical options were reviewed which he selected for a sleeve gastrectomy possible gastric bypass. A second generation bariatric consent form was reviewed in detail including possibility of leaks, infection, need for additional surgery. 2. Recommend DVT prophylaxis. 3. Recommend antibiotic prophylaxis. 4. Inpatient hospitalization more than 2 nights advised. 5. Robotic-assisted approach advised. Past Medical History Past Medical History: Asthma, Coronary Artery Disease (CAD), GERD/Reflux, Hyperlipidemia, Hypertension, Osteoarthritis (OA), Prostate Disorder, Sleep Apnea/CPAP/BIPAP Additional Past Medical History / Comment(s): Hx diverticulitis, uses CPAP, resolving cold sx. History of Any Multi-Drug Resistant Organisms: None Reported Past Surgical History: Appendectomy, Bowel Resection, Heart Catheterization, Orthopedic Surgery Additional Past Surgical History / Comment(s): repair detached retina, L carpal tunnel sx, sinus sx 03/10, L cataract, robotic repair paraesophageal incarcerated hiatal hernia 2016 Past Anesthesia/Blood Transfusion Reactions: No Reported Reaction Smoking Status: Former smoker - Past Family History Mother Additional Family Medical History / Comment(s): hx. of blood clot somewhere Sister(s) Family Medical History: Cancer Additional Family Medical History / Comment(s): breast Medications and Allergies Home Medications Medication Instructions Recorded Confirmed Type Acetaminophen Tab [Tylenol] 1,000 mg PO BID 02/10/17 10/06/17 History Albuterol Inhaler [Ventolin Hfa 1 puff INHALATION RT-Q6H PRN 02/10/17 10/06/17 History Inhaler] Aspirin 325 mg PO DAILY 02/10/17 10/06/17 History Dicyclomine [Bentyl] 20 mg PO BID 02/10/17 10/06/17 History Doxazosin Mesylate [Cardura] 8 mg PO HS 02/10/17 10/06/17 History Etodolac [Lodine] 800 mg PO BID 02/10/17 10/06/17 History Finasteride [Proscar] 5 mg PO DAILY 02/10/17 10/06/17 History Fluticasone/Vilanterol [Breo 1 puff INHALATION QAM 02/10/17 10/06/17 History Ellipta 100-25 Mcg Inhaler] Losartan/Hydrochlorothiazide 1 tab PO QAM 02/10/17 10/06/17 History [Hyzaar 100-25 Tablet] Montelukast [Singulair] 10 mg PO HS 02/10/17 10/06/17 History Sertraline [Zoloft] 150 mg PO QAM 02/10/17 10/06/17 History Verapamil HCl [Verapamil ER] 240 mg PO QAM 02/10/17 10/06/17 History sulfaSALAzine [Azulfidine] 1,000 mg PO BID 02/10/17 10/06/17 History Albuterol Nebulized [Ventolin 2.5 mg INHALATION RT-Q6H PRN 07/14/17 10/06/17 History Nebulized] L.acidoph,Paracasei, B.lactis 1 each PO DAILY 10/06/17 10/06/17 History [Probiotic] Multivitamin [Men's Multi-Vitamin] 1 each PO DAILY 10/06/17 10/06/17 History Allergies Allergy/AdvReac Type Severity Reaction Status Date / Time No Known Allergies Allergy Verified 10/06/17 07:58
[~2017-10-10 07:58] MED LIST changes: +ALVIMOPAN 12 MG CAPSULE PO ONE; +CHLORHEXIDINE GLUCONATE 15 ML CUP MUCOUS MEM ONE; +DEXAMETHASONE SOD PHOSPHATE 10 MG/ML 1 ML VIAL IV ONE; +ENOXAPARIN 40 MG/0.4 ML SYRINGE SQ STA; -LACTATED RINGERS 1,000 ML IV SCH; -LIDOCAINE 1% 20 ML VIAL (10MG/ML) FOR IV START INTRADERMA PRN; +MIDAZOLAM 2 MG/2 ML VIAL IV PRN; +ONDANSETRON 4 MG/2 ML VIAL IVP ONE; +PANTOPRAZOLE 40 MG/10 ML VIAL IV STA; +SCOPOLAMINE 1.5MG/72HR PATCH TRANSDERM ONE
[2017-10-10] MEDS: LACTATED RINGERS 1,000 ML IV SCH ×4 (08:30→21:02)
--- NOTE | 2017-10-10 09:08 | P.HPADDEND ---
H&P Addendum H&P Addendum Date: 10/10/17 Patient seen and evaluated. No new complaints. He had a cardiology follow-up for which he was cleared for surgery. Will proceed with sleeve gastrectomy.
[2017-10-10] MEDS ORDERED: fentaNYL (PF) 50 MCG/ML 2 ML AMP ONE (09:35)
[2017-10-10] MEDS ORDERED: WATER FOR INJECTION, STERILE 10 ML VIAL IV ONE (09:35)
[2017-10-10] MEDS ORDERED: NEOSTIGMINE 1 MG/ML 10 ML VIAL ONE (09:35)
[2017-10-10] MEDS ORDERED: MIDAZOLAM 2 MG/2 ML VIAL ONE (09:35)
[2017-10-10] MEDS ORDERED: PROPOFOL 10 MG/ML 20 ML VIAL IV ONE (09:35)
[2017-10-10] MEDS ORDERED: VECURONIUM 10 MG VIAL IV ONE (09:35)
[2017-10-10] MEDS ORDERED: SUCCINYLCHOLINE CHLORIDE VIAL 200 MG/10 ML VIAL IV ONE (09:35)
[2017-10-10] MEDS ORDERED: GLYCOPYRROLATE 0.2 MG/ML 2 ML VIAL ONE (09:35)
[2017-10-10] MEDS ORDERED: LIDOCAINE 1% INJ 10MG/ML (20 ML MDV) ONE (09:35)
[2017-10-10] MEDS ORDERED: ePHEDrine SULFATE/0.9% NACL/PF 50 MG/5 ML SYRINGE IV ONE (09:35)
[2017-10-10] MEDS ORDERED: BUPIVACAINE (PF) 0.25% 30 ML VIAL SQ ONE (09:58)
[2017-10-10] MEDS ORDERED: NALOXONE 0.4 MG/ML 1 ML VIAL IV PRN (12:00)
[2017-10-10] MEDS ORDERED: MORPHINE SULFATE 4 MG/ML SYRINGE IVP PRN (12:00)
[2017-10-10] MEDS ORDERED: ONDANSETRON 4 MG/2 ML VIAL IVP PRN (12:00)
--- NOTE | 2017-10-10 12:07 | P.PCN ---
Date of Procedure: 10/10/17 Preoperative Diagnosis: Morbid obesity Postoperative Diagnosis: Morbid obesity Procedure(s) Performed: Robotic sleeve gastrectomy 40-[place] bougie with EGD Anesthesia: GETA, local Surgeon: Kandi Calzada Estimated Blood Loss (ml): 10 Pathology: other (Sleeve gastrectomy) Condition: stable Disposition: floor Operative Findings: 1. Extremely long stomach 36 cm x 5 cm 2. Xiphoid to umbilicus 16 centimeters 3. Stapler right upper quadrant port including extraction 4. Negative leak test 5. Intra-abdominal adhesions from previous hernia repair 6. Moderate posterior gastric stomach 7. 10 total staplers, 3 greens, 7 blues
[2017-10-10] MEDS: fentaNYL (PF) 50 MCG/ML 2 ML AMP IV PRN ×2 (12:08→12:14)
[2017-10-10] MEDS ORDERED: diphenhydrAMINE 50 MG/ML 1 ML VIAL IVP ONE (12:12)
[2017-10-10] MEDS: MEPERIDINE 50 MG/ML SYRINGE IVP ONE ×2 (12:35→12:44)
[2017-10-10] MEDS: ALBUTEROL NEBULIZED 2.5 MG/3 ML INHALATION SCH ×3 (12:42→21:21)
--- NOTE | 2017-10-10 14:44 | FL ---
EXAMINATION TYPE: FL UGI DATE OF EXAM: 10/10/2017 COMPARISON: Previous dated 07/22/[address] 06/15/2017 HISTORY: Postop bariatric sleeve TECHNIQUE: A single contrast UGI study is performed. FINDINGS: Patient was given 25 cc of Omnipaque 350 orally. 8 images obtained. 1 minute 9 seconds fluo roscopy time. Incidental note made of a lung nodule. Lung nodule is noted in the prior chest CT. There is hesitancy across the stomach following ingestion of the contrast material. No extravasation was evident. Contrast does course to the distal stomach level on delayed images. IMPRESSION: There is delayed transit. Follow-up as indicated.
[2017-10-10] MEDS: HYDROcodone/APAP 15 ML SOLUTION PO PRN ×2 (17:08→22:29)
[2017-10-10 18:18] VITALS: BMI 42.0
[2017-10-10] MEDS ORDERED: MORPHINE SULFATE/PF 10MG/10ML VL IVP PRN (21:59)
[2017-10-10] MEDS ORDERED: diphenhydrAMINE 50 MG/ML 1 ML VIAL IVP PRN (21:59)
[2017-10-10] MEDS ORDERED: ALBUTEROL NEBULIZED 2.5 MG/3 ML INHALATION PRN (22:01)
[2017-10-10] MEDS ORDERED: 0.9% NACL WITH KCL 20 MEQ/L 1,000 ML IV SCH (22:30)
[2017-10-10] MEDS ORDERED: ACETAMINOPHEN IV (For NPO) 1,000 MG in EMPTY BAG 1 BAG IVPB ONE (22:30)
[2017-10-10] MEDS: SIMETHICONE 40 MG/0.6 ML DROPS 2,000 MG/30 ML BOTTLE PO SCH (22:38)
[2017-10-10] MEDS: HYOSCYAMINE ORAL DROPS 1.875 MG/15 ML BOTTLE PO SCH (22:39)
[2017-10-10] MEDS: AMPICILLIN-SULBACTAM 3 GM in SODIUM CHLORIDE 0.9% 100 ML IVPB SCH (23:09)
[2017-10-11 01:06] VITALS: RESP 18; TEMP 98.2
[2017-10-11] MEDS: HYDROcodone/APAP 15 ML SOLUTION PO PRN ×2 (03:36→08:56)
[2017-10-11] MEDS: AMPICILLIN-SULBACTAM 3 GM in SODIUM CHLORIDE 0.9% 100 ML IVPB SCH (05:05)
[2017-10-11] MEDS: SIMETHICONE 40 MG/0.6 ML DROPS 2,000 MG/30 ML BOTTLE PO SCH (05:05)
[2017-10-11] MEDS: HYOSCYAMINE ORAL DROPS 1.875 MG/15 ML BOTTLE PO SCH (05:05)
[2017-10-11 07:00] LABS: Basophils % (A) 0 %; Eosinophils % (A) 0 %; HCT 38.4 % (39.0-53.0); HGB 13.3 gm/dL (13.0-17.5); Lymphocytes # (A) 1.4 k/uL (1.0-4.8); Lymphocytes % (A) 12 %; MCHC 34.7 g/dL (31.0-37.0); MCV 89.4 fL (80.0-100.0); Mean Platelet Volume 7.9; Monocytes # (A) 0.7 k/uL (0-1.0); Monocytes % (A) 6 %; Neutrophils # (A) 9.7 k/uL (1.3-7.7); Neutrophils % (A) 80 %; Platelet Count 171 k/uL (150-450); RDW 12.8 % (11.5-15.5); WBC 12.1 k/uL (3.8-10.6)
[2017-10-11 07:15] LABS: Anion Gap 10 mmol/L; Blood Urea Nitrogen 14 mg/dL (9-20); Carbon Dioxide 25 mmol/L (22-30); Chloride 106 mmol/L (98-107); Magnesium 1.8 mg/dL (1.6-2.3); Phosphorus 3.6 mg/dL (2.5-4.5); Sodium 141 mmol/L (137-145)
--- NOTE | 2017-10-11 07:34 | P.PN ---
Subjective Progress Note Date: 10/11/17 Patient seen and evaluated, s/p sleeve gastrectomy. He complains of mild epigastric discomfort, but reports doing very well. No nausea or vomiting. He is ambulating and tolerating diet. Objective - Vital Signs Vital signs: Vital Signs Temp 98.2 F 10/11/17 01:04 Pulse 81 10/11/17 01:04 Resp 18 10/11/17 01:04 BP 123/66 10/11/17 01:04 Pulse Ox 90 L 10/11/17 01:04 Intake & Output 10/10/17 10/11/17 10/11/17 18:59 06:59 18:59 Intake Total 1550 1462.5 Output Total 310 Balance 1240 1462.5 Weight 129.2 kg Intake: IV 1550 Intake, IV Titration 1462.5 Amount 0.9% NaCl with KCl 20 Meq 825 /l 1,000 ml @ 150 mls/hr IV .Q6H40M CAROLE Rx#: [id number] Ampicillin-Sulbactam 3 gm 200 In Sodium Chloride 0.9% 100 ml @ 100 mls/hr IVPB Q6HR CAROLE Rx#:[id number] Lactated Ringers 1,000 ml 437.5 @ 125 mls/hr IV .Q8H CAROLE Rx#:[id number] Output: Urine 300 Estimated Blood Loss 10 Other: # Voids 3 - Exam GENERAL: Well-developed male in no acute distress. ABDOMEN: Soft, nondistended. Dressings intact. No peritonitis. MUSCULOSKELETAL: No clubbing, cyanosis or edema. HEENT: No sclera icterus. Extraocular movements grossly intact. Moist buccal mucosa. Head is atraumatic, normocephalic. Hears conversational speech. No nasal drainage. NECK: Supple without lymphadenopathy. No JV distention. CHEST: Non-labored respirations and equal bilateral excursions. CARDIOVASCULAR: Regular rate and rhythm. Palpable 2+ radial pulses. NEUROLOGIC: No focal or lateralizing signs. Cranial nerves II through XII grossly intact. PSYCH: Appropriate affect. Alert and oriented to person, place and time. SKIN: Good skin turgor. Well-perfused. - Labs CBC & Chem 7: 10/11/17 06:22 10/11/17 06:22 Labs: Abnormal Lab Results - Last 24 Hours (Table) 10/11/17 Range/Units 06:22 WBC 12.1 H (3.8-10.6) k/uL Hct 38.4 L (39.0-53.0) % Neutrophils # 9.7 H (1.3-7.7) k/uL Assessment and Plan (1) Hypertensive cardiopathy Current Visit: No Status: Acute Code(s): I11.9 - HYPERTENSIVE HEART DISEASE WITHOUT HEART FAILURE SNOMED Code(s): 95254634 (2) Morbid obesity with BMI of 40.0-44.9, adult Current Visit: No Status: Acute Code(s): E66.01 - MORBID (SEVERE) OBESITY DUE TO EXCESS CALORIES; Z68.41 - BODY MASS INDEX (BMI) 40.0-44.9, ADULT SNOMED Code(s): 846453498 (3) Osteoarthritis Current Visit: No Status: Acute Code(s): M19.90 - UNSPECIFIED OSTEOARTHRITIS , UNSPECIFIED SITE SNOMED Code(s): 684447395 (4) Peritoneal adhesions Current Visit: No Status: Acute Code(s): K66.0 - PERITONEAL ADHESIONS ( POSTPROCEDURAL) (POSTINFECTION) SNOMED Code(s): 797607443 (5) Sleep apnea, obstructive Current Visit: No Status: Acute Code(s): G47.33 - OBSTRUCTIVE SLEEP APNEA ( ADULT) (PEDIATRIC) SNOMED Code(s): 91001731 Plan: 1. Adjustment of pain medications for home. 2. Avoid NSAIDS 3. Follow-up in office in 48 hrs.
[2017-10-11] MEDS ORDERED: SYMBICORT 80-4.5 MCG INHALER INHALATION SCH (08:00)
[2017-10-11] MEDS ORDERED: 1: MVI, ADULT NO.4 WITH VIT K 10 ML, THIAMINE 100 MG, FOLIC ACID 1 MG, POTASSIUM CHLORID IV SCH ×6 (08:00)
[2017-10-11] MEDS: ALBUTEROL NEBULIZED 2.5 MG/3 ML INHALATION SCH (08:51)
[2017-10-11] MEDS ORDERED: FINASTERIDE 5 MG TAB PO SCH (09:00)
[2017-10-11] MEDS ORDERED: PANTOPRAZOLE 40 MG/10 ML VIAL IV SCH (09:00)
[2017-10-11] MEDS ORDERED: ENOXAPARIN 40 MG/0.4 ML SYRINGE SQ SCH ×2 (09:00)
[2017-10-11] MEDS ORDERED: VERAPAMIL SR 240 MG TABLET.ER PO SCH (09:00)
[2017-10-11] MEDS ORDERED: LOSARTAN-HCTZ 50-12.5 MG 1 EACH TAB PO SCH (09:00)
[2017-10-11 10:16] VITALS: BP 165/84; PULSE 71
[2017-10-11] MEDS ORDERED: HYDROmorphone 4 MG TABLET PO PRN (11:19)
[2017-10-11] MEDS: LACTATED RINGERS 1,000 ML IV SCH (11:19)
[2017-10-11] MEDS ORDERED: DOXAZOSIN 4 MG TAB PO SCH (21:00)
[2017-10-11] MEDS ORDERED: MONTELUKAST 10 MG TAB PO SCH (21:00)
[2017-10-12] MEDS ORDERED: BISACODYL 5 MG TABLET.DR PO PRN (08:00)
--- NOTE | 2017-10-16 21:07 | P.OP ---
Date of Procedure: 10/10/17 Description of Procedure: Date of Procedure: 10/10/17 SURGEON: RIGO FREED MD NEON TUBE BENDER: 1. HAILY AUGUSTIN 2. IZABELA MESSER PREOPERATIVE DIAGNOSES: 1. Morbid obesity due to excess caloric intake. 2. Body mass index 45.1. 3. Medical supervised weight loss. 4. Coronary artery disease. 5. Osteoarthritis of the bilateral knees secondary to morbid obesity. 6. Asthma. 7. Hypertensive heart disease. 8. Obstructive sleep apnea. POSTOPERATIVE DIAGNOSES: 1. Morbid obesity due to excess caloric intake. 2. Body mass index 45.1. 3. Medical supervised weight loss. 4. Coronary artery disease. 5. Osteoarthritis of the bilateral knees secondary to morbid obesity. 6. Asthma. 7. Hypertensive heart disease. 8. Obstructive sleep apnea. OPERATION: 1. Robotic assisted daVinci Xi laparoscopic sleeve gastrectomy with 40-Qatari bougie, multiport. 2. Intraoperative esophagogastroduodenoscopy. Anesthesia: GETA, local Surgeon: Rigo Freed Estimated Blood Loss (ml): 10 Pathology: other (Sleeve gastrectomy) Condition: stable Disposition: floor INDICATIONS: Oral Retana is a 62-year-old male who initially presented to the bariatric center in January 2017. His highest weight was 307 pounds. His highest body mass index was 45.4. His ideal body weight is 168 pounds. He has lost 26 pounds during medical supervised weight loss. He has developed comorbidities including hypertension, sleep apnea, hyperlipidemia as a result of his morbid obesity. His gastroesophageal reflux disease has resolved following his hiatal hernia repair. He comes in today for a sleeve gastrectomy. All surgical options for morbid obesity had been described using the [place] bariatric surgery collaborative complication risk score. A second- generation bariatric consent form was described in detail including the possibility of protein malnutrition, leaks, venous thrombosis, need for further surgery for which he demonstrated understanding. Benefits and risks of the procedure were described at length. Informed consent was obtained. DESCRIPTION: The patient was brought into the operating room theater. Preoperatively he had received Lovenox subcutaneously for DVT prophylaxis. Additionally he had undergone Peridex oral solution as an oral decontaminant. After general induction, the abdomen was prepped and draped in standard sterile fashion. The patient had previously voided prior to coming to the operating room. An Ioban draping was placed along the abdomen. A robotic da Nir Xi system was prepped and primed. The xiphoid to umbilicus measured 16 cm. At 15 cm from the xiphoid, proposed port sites were marked with indelible marker along the anterior axillary line bilaterally, mid axillary line bilaterally with each ports were marked 10 to 15 cm from each other. The robotic stapler port was marked for the right midclavicular line. A 5 mm 0 degrees laparoscopic trocar entry was performed along the left upper quadrant. The abdomen was insufflated to 15 mmHg pressure he tolerated well. Diagnostic laparoscopy demonstrated no injury to bowel, viscera, or mesentery. Intra-abdominal adhesions from his previous incisional hernia repair was found. The liver surface was unremarkable. No injury had occurred to the small bowel or viscera. Along the hiatus no evidence of large prominent hiatal hernia was encountered. Two 8 mm port was placed along the left upper abdominal wall after exchanging the 5 mm port. Please note that the ports were placed at least 20 cm away from the target anatomy. Care was taken to check each robotic arms were safely away from collision with the bed or the patient. At the epigastrium, a medium sized Anny liver retractor was placed under direct visualization with the Iron Patient Transport Officer placed under the right shoulder of the patient. Next, 12-mm robot stapler port was placed along the right upper abdominal wall. The camera 8-mm port was maintained along the epigastrium. The patient was repositioned in reverse Trendelenburg position at 14-degrees after lowering the bed. The robot was docked along the left side of the patient. Using a grasper for arm 3, a veseel sealer for arm 4, including grasper for arm 1, the robotic system was docked and primed as described. Instruments were interchanged by the assistant terminal manager for stapler loads. The camera was placed at 30 degrees down. I had sat at the console. The pylorus was identified and 6 cm proximally along the greater curvature of the stomach, the short gastrics were mobilized upwards to the angle of His using a vessel sealer. Hemostasis was excellent during this portion of the procedure. Next, the upper pole of the stomach was adherent to the left eva, which was gently dissected free using atraumatic grasper. Moderate redundancy of the posterior upper pole of the stomach was identified. The nursing body man placed a 40-Qatari blunted bougie into the stomach. Robotic stapler green 30 mm loads were used. Initial firing was across the antrum of the stomach towards the angle of His. In a similar direction, a total of 10 green/blue loads were fired towards the angle of His. The staple line was completely hemostatic and linear without corkscrewing. Hemostasis was excellent. The space from the angularis incisura of the sleeve was approximately 4 cm. I then went to the head of the bed to perform the intraoperative esophagogastroduodenoscopy leak test. The upper pole of the stomach was bathed using normal saline solution. The scope was withdrawn with careful inspection along the staple line for which no leaks were found along the entire length. Additionally, the sleeve was completely hemostatic without any encroachment along the angularis incisura. Its topology was a straight tube. No stricture was encountered upon placement of the scope. The GI tract was desufflated. The patient tolerated this portion of the procedure well. The scope was completely withdrawn. I then rescrubbed into case, whereby the irrigation fluid was aspirated from the abdominal cavity. Tisseel fibrin sealant was placed along the entire staple length. Once dried the Anny liver retractor was removed. Attention was now brought to removal of the specimen. The distal end of the sleeve gastrectomy specimen was brought out through the 12 mm port. The specimen was gently removed en total, corresponding to 38 cm x 6 cm sleeve gastrectomy specimen. No contamination had occurred during this process. All instruments and pneumoperitoneum including irrigation fluid was removed from the abdominal cavity. The 12 mm port site was irrigated with warm normal saline solution and diluted hydron peroxide. The 12-mm port site was reapproximated using 0 Vicryl and Ricardo-Ignacio. The final incisions were closed using subcuticular suture of 4-0 Monocryl. Dermabond was applied to the skin once the skin had been cleansed. OptiFoam dressing was placed along the stomach extraction site. At the end of the procedure, needle, sponge, and instrument count was verified correct by the cardiac technician. The patient was taken to the postanesthesia care unit in stable condition. He had tolerated the procedure well. Intraoperative films and findings were reviewed with the patient's family. Console time 60 minutes Operative Findings: 1. Extremely long stomach 38 cm x 6 cm 2. Xiphoid to umbilicus 16 cm 3. Stapler right upper quadrant port including extraction 4. Negative leak test 5. Intra-abdominal adhesions from previous hernia repair 6. Moderate posterior gastric stomach 7. 10 total staplers, 3 greens, 7 blues
--- NOTE | 2017-10-16 21:17 | P.DS ---
Providers Date of admission: 10/10/17 07:58 Expected date of discharge: 10/11/17 Attending physician: Kandi Calzada Primary care physician: Cricket Garciaeldor - Discharge Diagnosis(es) (1) Hypertensive cardiopathy Status: Acute (2) Morbid obesity with BMI of 40.0-44.9, adult Status: Acute (3) Osteoarthritis Status: Acute (4) Peritoneal adhesions Status: Acute (5) Sleep apnea, obstructive Status: Acute Hospital Course: POSTOPERATIVE DIAGNOSES: 1. Morbid obesity due to excess caloric intake. 2. Body mass index 45.1. 3. Medical supervised weight loss. 4. Coronary artery disease. 5. Osteoarthritis of the bilateral knees secondary to morbid obesity. 6. Asthma. 7. Hypertensive heart disease. 8. Obstructive sleep apnea. COURSE: Oral Retana is a 62-year-old male who initially presented to the bariatric center in January 2017. His highest weight was 307 pounds. His highest body mass index was 45.4. His ideal body weight is 168 pounds. He has lost 26 pounds during medical supervised weight loss. He has developed comorbidities including hypertension, sleep apnea, hyperlipidemia as a result of his morbid obesity. His gastroesophageal reflux disease has resolved following his hiatal hernia repair. He comes in today for a sleeve gastrectomy. All surgical options for morbid obesity had been described using the [place] bariatric surgery collaborative complication risk score. A second-generation bariatric consent form was described in detail including the possibility of protein malnutrition, leaks, venous thrombosis, need for further surgery for which he demonstrated understanding. Benefits and risks of the procedure were described at length. He underwent his procedure without complications. Post-op bariatic diet was reviewed in detail. Esophogram was unremarkable. Follow-up in the bariatric center in 48 to 72 hrs was described. Pertinent Studies: Esophogram negative Procedures: OPERATION: 1. Robotic assisted daVinci Xi laparoscopic sleeve gastrectomy with 40-Pakistani bougie, multiport. 2. Intraoperative esophagogastroduodenoscopy. Anesthesia: GETA, local Surgeon: Kandi Calzada Estimated Blood Loss (ml): 10 Pathology: other (Sleeve gastrectomy) Condition: stable Disposition: floor Patient Condition at Discharge: Good Plan - Discharge Summary Discharge Rx Participant: Yes New Discharge Prescriptions: New Bisacodyl [Dulcolax] 5 mg PO DAILY PRN #10 tablet.dr PRN Reason: Constipation Ondansetron Odt [Zofran Odt] 4 mg PO Q8HR PRN #9 tab PRN Reason: Nausea Simethicone 40 mg/0.6 ml Drops [Mylicon Drops] 40 mg PO PCHS PRN #30 ml PRN Reason: Gas HYDROcodone/APAP [[place] Elixir 7.5-325Mg/15Ml] 15 ml PO Q4HR PRN #480 ml PRN Reason: Pain Omeprazole 40 mg PO DAILY #30 capsule.dr Continue Montelukast [Singulair] 10 mg PO HS Doxazosin Mesylate [Cardura] 8 mg PO HS Verapamil HCl [Verapamil ER] 240 mg PO QAM Losartan/Hydrochlorothiazide [Hyzaar 100-25 Tablet] 1 tab PO QAM Finasteride [Proscar] 5 mg PO DAILY Fluticasone/Vilanterol [Breo Ellipta 100-25 Mcg Inhaler] 1 puff INHALATION RT -DAILY Acetaminophen Tab [Tylenol] 1,000 mg PO BID Albuterol Inhaler [Ventolin Hfa Inhaler] 1 puff INHALATION RT-Q6H PRN PRN Reason: Dyspnea Albuterol Nebulized [Ventolin Nebulized] 2.5 mg INHALATION RT-Q6H PRN PRN Reason: sob Discontinued Dicyclomine [Bentyl] 20 mg PO BID Etodolac [Lodine] 800 mg PO BID Aspirin 325 mg PO DAILY sulfaSALAzine [Azulfidine] 1,000 mg PO BID Multivitamin [Men's Multi-Vitamin] 1 tab PO DAILY L.acidoph,Paracasei, B.lactis [Probiotic] 1 cap PO DAILY No Action Sertraline [Zoloft] 150 mg PO QAM Discharge Medication List Acetaminophen Tab [Tylenol] 1,000 mg PO BID 02/10/17 [History] Albuterol Inhaler [Ventolin Hfa Inhaler] 1 puff INHALATION RT-Q6H PRN 02/10/17 [ History] Doxazosin Mesylate [Cardura] 8 mg PO HS 02/10/17 [History] Finasteride [Proscar] 5 mg PO DAILY 02/10/17 [History] Fluticasone/Vilanterol [Breo Ellipta 100-25 Mcg Inhaler] 1 puff INHALATION RT- DAILY 02/10/17 [History] Losartan/Hydrochlorothiazide [Hyzaar 100-25 Tablet] 1 tab PO QAM 02/10/17 [ History] Montelukast [Singulair] 10 mg PO HS 02/10/17 [History] Sertraline [Zoloft] 150 mg PO QAM 02/10/17 [History] Verapamil HCl [Verapamil ER] 240 mg PO QAM 02/10/17 [History] Albuterol Nebulized [Ventolin Nebulized] 2.5 mg INHALATION RT-Q6H PRN 07/14/17 [ History] Bisacodyl [Dulcolax] 5 mg PO DAILY PRN #10 tablet. 10/11/17 [Rx] HYDROcodone/APAP [[place] Elixir 7.5-325Mg/15Ml] 15 ml PO Q4HR PRN #480 ml [Rx] Omeprazole 40 mg PO DAILY #30 capsule. 10/11/17 [Rx] Ondansetron Odt [Zofran Odt] 4 mg PO Q8HR PRN #9 tab 10/11/17 [Rx] Simethicone 40 mg/0.6 ml Drops [Mylicon Drops] 40 mg PO PCHS PRN #30 ml [Rx] Follow up Appointment(s)/Referral(s): Kandi Calzada MD [STAFF PHYSICIAN] - 10/13/17 10:00 am (Call bariatric center ) Patient Instructions/Handouts: Nutrition after Bariatric Surgery (GEN), Laparoscopic Sleeve Gastrectomy (DC) Activity/Diet/Wound Care/Special Instructions: No lifting over 4 pounds in 4 weeks. May shower. No bathtub soaks. Discharge Disposition: HOME SELF-CARE
== END 2017-10-11 12:30 | disposition home or self-care (01) | DRG 621 ==
LOC: 2ORMAIN 07:58 → 3SUR 12:29
PROVIDERS: ADMIT Surgery Plastic and Reconstructive Surgery; ATTEND Surgery Plastic and Reconstructive Surgery
PROC: 8E0W4CZ Robotic Assisted Procedure of Trunk Region, Percutaneous Endoscopic Approach (ICD-10-PCS; 2017-10-10)
PROC: 0DJ08ZZ Inspection of Upper Intestinal Tract, Via Natural or Artificial Opening Endoscopic (ICD-10-PCS; 2017-10-10)
PROC: 0DB64Z3 Excision of Stomach, Percutaneous Endoscopic Approach, Vertical (ICD-10-PCS; principal; 2017-10-10 15:20)
DX: E66.01 Morbid (severe) obesity due to excess calories (principal); I11.9 Hypertensive heart disease without heart failure; E78.5 Hyperlipidemia, unspecified; G47.33 Obstructive sleep apnea (adult) (pediatric); Z68.41 Body mass index [BMI] 40.0-44.9, adult; J45.909 Unspecified asthma, uncomplicated; I25.10 Atherosclerotic heart disease of native coronary artery without angina pectoris; K21.9 Gastro-esophageal reflux disease without esophagitis; K66.0 Peritoneal adhesions (postprocedural) (postinfection); N42.9 Disorder of prostate, unspecified; R91.1 Solitary pulmonary nodule; M17.0 Bilateral primary osteoarthritis of knee; F32.9 Major depressive disorder, single episode, unspecified; Z71.3 Dietary counseling and surveillance; Z79.51 Long term (current) use of inhaled steroids; Z79.1 Long term (current) use of non-steroidal anti-inflammatories (NSAID); Z79.82 Long term (current) use of aspirin; Z79.899 Other long term (current) drug therapy; Z85.118 Personal history of other malignant neoplasm of bronchus and lung; Z87.891 Personal history of nicotine dependence; Z98.42 Cataract extraction status, left eye; Z90.49 Acquired absence of other specified parts of digestive tract
CPT/HCPCS: 74240; 80051; 82310; 82565; 83735; 84100; 84520; 85025; 86850; 86900; 86901; 88307; 94640

== ENCOUNTER → 2017-10-13 | Outpatient (CLI) | payer BC ==
[2017-10-13 15:26] VITALS: BMI 41.3
[2017-10-13 15:33] VITALS: BP 139/83; PULSE 79; TEMP 98
== END | disposition home or self-care (01) ==
LOC: BARWHC3 14:34
PROVIDERS: ATTEND Surgery Plastic and Reconstructive Surgery
DX: E66.01 Morbid (severe) obesity due to excess calories (principal); Z71.3 Dietary counseling and surveillance; Z68.41 Body mass index [BMI] 40.0-44.9, adult
CPT/HCPCS: 97803; 99211

== ENCOUNTER → 2017-11-02 | Outpatient (CLI) | payer BC ==
[2017-11-02 15:18] VITALS: BMI 39.0
[2017-11-02 16:23] LABS: HCT 42.9 % (39.0-53.0); HGB 14.5 gm/dL (13.0-17.5); MCH 30.1 pg (25.0-35.0); MCHC 33.8 g/dL (31.0-37.0); Mean Platelet Volume 9.2; Platelet Count 189 k/uL (150-450); RBC 4.83 m/uL (4.30-5.90); RDW 12.3 % (11.5-15.5); WBC 9.1 k/uL (3.8-10.6)
[2017-11-02 16:34] LABS: INR 1.1 (<1.2); Prothrombin Time 10.7 sec (9.0-12.0)
[2017-11-02 16:36] LABS: ALT 41 U/L (21-72); AST 33 U/L (17-59); Albumin 4.4 g/dL (3.5-5.0); Alkaline Phosphatase 73 U/L (38-126); Anion Gap 16 mmol/L; Blood Urea Nitrogen 19 mg/dL (9-20); Carbon Dioxide 24 mmol/L (22-30); Chloride 104 mmol/L (98-107); Cholesterol 117 mg/dL (<200); Glucose 103 mg/dL (74-99); HDL Cholesterol 50 mg/dL (40-60); LDL Cholesterol,Calculated 43 mg/dL (0-99); Magnesium 1.8 mg/dL (1.6-2.3); Phosphorus 3.5 mg/dL (2.5-4.5); Potassium 3.8 mmol/L (3.5-5.1); Sodium 144 mmol/L (137-145); Total Bilirubin 0.4 mg/dL (0.2-1.3); Total Protein 7.2 g/dL (6.3-8.2); Triglycerides 119 mg/dL (<150)
[2017-11-02 17:00] VITALS: BP 144/67; PULSE 81; TEMP 97.7
[2017-11-03 00:32] LABS: Iron Saturation 21.32 (15.00-50.00)
[2017-11-03 00:40] LABS: Vitamin D 25 Hydroxy 30.9 ng/mL (30.0-100.0)
[2017-11-03 00:54] LABS: Folate, Serum 11.8 ng/mL
[2017-11-03 02:22] LABS: Hemoglobin A1C 5.5 % (4.0-6.0)
[2017-11-03 03:52] LABS: Parathyroid Hormone Intact 30.3 pg/mL (14.0-72.0)
[2017-11-03 12:32] LABS: Zinc, Serum 91 ug/dL (60-130)
[2017-11-04 08:46] LABS: Vitamin A 61 ug/dL (38-106)
== END | disposition home or self-care (01) ==
LOC: BARWHC3 14:56
PROVIDERS: ATTEND Surgery Plastic and Reconstructive Surgery
DX: E66.01 Morbid (severe) obesity due to excess calories (principal); E21.1 Secondary hyperparathyroidism, not elsewhere classified; D50.9 Iron deficiency anemia, unspecified; E44.0 Moderate protein-calorie malnutrition; E55.9 Vitamin D deficiency, unspecified; K74.1 Hepatic sclerosis; N19 Unspecified kidney failure; K50.90 Crohn's disease, unspecified, without complications; Z68.39 Body mass index [BMI] 39.0-39.9, adult
CPT/HCPCS: 36415; 80053; 80061; 82306; 82525; 82607; 82728; 82746; 83036; 83540; 83550; 83735; 83970; 84100; 84134; 84255; 84425; 84443; 84590; 84630; 85027; 85610; 85730; 97803; 99211

== ENCOUNTER → 2017-12-28 | Outpatient (CLI) | payer BC ==
--- NOTE | 2017-12-28 14:18 | P.PN ---
Subjective Progress Note Date: 12/28/17 DATE OF SERVICE: 12/28/2017 CHIEF COMPLAINT: Status post sleeve gastrectomy HISTORY OF PRESENT ILLNESS: Oral Retana is a 62-year-old male who is status post hiatal hernia repair including incisional hernia repair performed 2016. He is now status post sleeve gastrectomy 10/10/2017. He has been very active and building a garden. "I feel great." He denies any sense of taste or smell. No heartburn medication. He is taking his arthritic medications. He lost another 20 pounds in 2 months. He is getting over 10,000 steps. He feels great. No GERD. PLAN: 1. He has wonderful support from his . 2. He has no issues. 3. Recommend labs. 4. Follow up in 3 months, March. DATE OF SERVICE: 11/02/2017 CHIEF COMPLAINT: Status post sleeve gastrectomy HISTORY OF PRESENT ILLNESS: Oral Retana is a 62-year-old male who is status post hiatal hernia repair including incisional hernia repair performed 2016. He is now status post sleeve gastrectomy 10/10/2017. He is 3 weeks postop. No reports of gastroesophageal reflux disease. He reports flatulence. He complains of arthritis of the hands. His highest weight was 307 pounds. Today he comes in 264 pounds. His highest body mass index was 45.4 and now is down to 39.1. His ideal body weight is 168 pounds. He has lost 43 pounds, lifetime. Percent excess weight is 31 %. He lost 15 pounds in 3 weeks. PHYSICAL EXAM: VITAL SIGNS: 5 feet 9 inch, 264 pounds. Body mass index 39.1 Vital Signs Temp 97.7 F 11/02/17 16:57 Pulse 81 11/02/17 16:57 Resp BP 144/67 11/02/17 16:57 Pulse Ox GENERAL: Well-developed male in no acute distress. ABDOMEN: Soft, nontender, nondistended. Incisions granulated. No infection. No recurrent incisional hernia. MUSCULOSKELETAL: No clubbing, cyanosis or edema. HEENT: No sclera icterus. Extraocular movements grossly intact. Moist buccal mucosa. Head is atraumatic, normocephalic. Hears conversational speech. No nasal drainage. NECK: Supple without lymphadenopathy. No JV distention. CHEST: Non-labored respirations and equal bilateral excursions. CARDIOVASCULAR: Regular rate and rhythm. Palpable 2+ radial pulses. NEUROLOGIC: No focal or lateralizing signs. Cranial nerves II through XII grossly intact. PSYCH: Appropriate affect. Alert and oriented to person, place and time. SKIN: Good skin turgor. Well-perfused. ASSESSMENT: 1. Morbid obesity due to excess caloric intake. 2. Body mass index down from 45.1 to 41.3. 3. Status post sleeve gastrectomy PLAN: 1. Recommend bariatric metabolic panel 2. Stage III diet Objective - Vital Signs Vital signs: Intake & Output 11/01/17 11/02/17 11/02/17 18:59 06:59 18:59 Weight 119.975 kg - Labs CBC & Chem 7: 11/02/17 15:59 11/02/17 15:59
[2017-12-28 14:36] VITALS: BP 126/73; PULSE 76; TEMP 97.8; BMI 36.8
== END | disposition home or self-care (01) ==
LOC: BARWHC3 12:51
PROVIDERS: ATTEND Surgery Plastic and Reconstructive Surgery
DX: Z48.815 Encounter for surgical aftercare following surgery on the digestive system (principal); E66.01 Morbid (severe) obesity due to excess calories; Z68.41 Body mass index [BMI] 40.0-44.9, adult; Z98.84 Bariatric surgery status; Z71.3 Dietary counseling and surveillance
CPT/HCPCS: 97803; 99211

== ENCOUNTER → 2018-01-18 | Outpatient (CLI) | payer BC ==
[2018-01-18 11:18] LABS: HCT 43.5 % (39.0-53.0); HGB 14.6 gm/dL (13.0-17.5); MCH 30.4 pg (25.0-35.0); MCHC 33.6 g/dL (31.0-37.0); MCV 90.5 fL (80.0-100.0); Mean Platelet Volume 8.1; Platelet Count 168 k/uL (150-450); RBC 4.81 m/uL (4.30-5.90); RDW 13.2 % (11.5-15.5); WBC 5.9 k/uL (3.8-10.6)
[2018-01-18 11:31] LABS: Partial Thromboplastin Time 22.7 sec (22.0-30.0); Prothrombin Time 10.1 sec (9.0-12.0)
[2018-01-18 12:02] LABS: ALT 30 U/L (21-72); AST 25 U/L (17-59); Albumin 4.2 g/dL (3.5-5.0); Alkaline Phosphatase 77 U/L (38-126); Anion Gap 12 mmol/L; Blood Urea Nitrogen 20 mg/dL (9-20); Calcium 9.6 mg/dL (8.4-10.2); Carbon Dioxide 26 mmol/L (22-30); Chloride 104 mmol/L (98-107); Cholesterol 127 mg/dL (<200); Glucose 105 mg/dL (74-99); HDL Cholesterol 52 mg/dL (40-60); LDL Cholesterol,Calculated 52 mg/dL (0-99); Phosphorus 3.1 mg/dL (2.5-4.5); Potassium 4.2 mmol/L (3.5-5.1); Sodium 142 mmol/L (137-145); Total Bilirubin 0.7 mg/dL (0.2-1.3); Total Protein 6.8 g/dL (6.3-8.2); Triglycerides 117 mg/dL (<150)
[2018-01-18 16:17] LABS: Parathyroid Hormone Intact 20.2 pg/mL (14.0-72.0)
[2018-01-18 16:36] LABS: Vitamin D 25 Hydroxy 37.7 ng/mL (30.0-100.0)
[2018-01-18 17:58] LABS: Hemoglobin A1C 5.3 % (4.0-6.0)
[2018-01-18 18:46] LABS: Iron Saturation 32.5 (15.00-50.00)
[2018-01-19 15:31] LABS: Zinc, Serum 66 ug/dL (60-130)
[2018-01-20 05:43] LABS: Vitamin A 72 ug/dL (38-106)
[2018-01-20 13:26] LABS: Vitamin B1 63 ug/L (38-122)
== END | disposition home or self-care (01) ==
LOC: LABWHC1 10:40
PROVIDERS: ATTEND Surgery Plastic and Reconstructive Surgery
DX: E66.01 Morbid (severe) obesity due to excess calories (principal); E21.1 Secondary hyperparathyroidism, not elsewhere classified; E89.1 Postprocedural hypoinsulinemia; D50.9 Iron deficiency anemia, unspecified; K90.9 Intestinal malabsorption, unspecified; E55.9 Vitamin D deficiency, unspecified; N19 Unspecified kidney failure; K50.90 Crohn's disease, unspecified, without complications; K74.1 Hepatic sclerosis
CPT/HCPCS: 36415; 80053; 80061; 82306; 82525; 82607; 82728; 82746; 83036; 83540; 83550; 83735; 83970; 84100; 84134; 84255; 84425; 84443; 84590; 84630; 85027; 85610; 85730

== ENCOUNTER → 2018-03-29 | Outpatient (CLI) | payer BC ==
--- NOTE | 2018-03-29 16:29 | P.PN ---
Subjective Progress Note Date: 03/29/18 DATE OF SERVICE: 03/29/2018 CHIEF COMPLAINT: Status post sleeve gastrectomy HISTORY OF PRESENT ILLNESS: Oral Retana is a 62-year-old male who is status post hiatal hernia repair including incisional hernia repair performed 2016. He is now status post sleeve gastrectomy 10/10/2017. He is 6 months out. No reports of gastroesophageal reflux disease. He feels great. He has a new job. He is 6 months out. He is exercising 10,000+ steps daily. His highest weight was 307 pounds. Today he comes in 239 pounds from 249 pounds. His highest body mass index was 45.4 and now is down to 35.4. His ideal body weight is 168 pounds. He has lost 68 pounds, lifetime. Percent excess weight is 49%. He lost 10 pounds in 3 months. PHYSICAL EXAM: VITAL SIGNS: 5 feet 9 inch, 239 pounds. Body mass index 35.4 Vital Signs Temp 98.4 F 03/29/18 16:37 Pulse 80 03/29/18 16:37 Resp BP 148/86 03/29/18 16:37 Pulse Ox GENERAL: Well-developed male in no acute distress. ABDOMEN: Soft, nontender, nondistended. Incisions granulated. No infection. No recurrent incisional hernia. MUSCULOSKELETAL: No clubbing, cyanosis or edema. HEENT: No sclera icterus. Extraocular movements grossly intact. Moist buccal mucosa. Head is atraumatic, normocephalic. Hears conversational speech. No nasal drainage. NECK: Supple without lymphadenopathy. No JV distention. CHEST: Non-labored respirations and equal bilateral excursions. CARDIOVASCULAR: Regular rate and rhythm. Palpable 2+ radial pulses. NEUROLOGIC: No focal or lateralizing signs. Cranial nerves II through XII grossly intact. PSYCH: Appropriate affect. Alert and oriented to person, place and time. SKIN: Good skin turgor. Well-perfused. ASSESSMENT: 1. Morbid obesity due to excess caloric intake. 2. Body mass index down from 45.4 to 35.4 3. Status post sleeve gastrectomy PLAN: 1. Recommend bariatric labs. 2. He is doing well.
[2018-03-29 16:45] VITALS: BP 148/86; PULSE 80; TEMP 98.4; BMI 35.4
== END | disposition home or self-care (01) ==
LOC: BARWHC3 14:37
PROVIDERS: ATTEND Surgery Plastic and Reconstructive Surgery
DX: Z09 Encounter for follow-up examination after completed treatment for conditions other than malignant neoplasm (principal); E66.01 Morbid (severe) obesity due to excess calories; Z68.35 Body mass index [BMI] 35.0-35.9, adult; Z98.84 Bariatric surgery status
CPT/HCPCS: 97803; 99211

== ENCOUNTER → 2018-08-09 | Outpatient (CLI) | payer BC ==
--- NOTE | 2018-08-09 16:34 | P.PN ---
Subjective Progress Note Date: 08/09/18 HPI: He has weight gain. His reports stress from family. He has weight gain. No GERD. Off asthma PLAN: 1. Check labs 2. Weight gained secondary to family stressors. 3. Alcohol use reviewed
[2018-08-09 16:45] VITALS: BP 128/77; PULSE 96; RESP 16; TEMP 98.4; BMI 35.9
[2018-08-09 18:24] LABS: HCT 42.7 % (39.0-53.0); HGB 14.5 gm/dL (13.0-17.5); MCV 91.4 fL (80.0-100.0); Platelet Count 216 k/uL (150-450); RBC 4.67 m/uL (4.30-5.90); RDW 12.6 % (11.5-15.5); WBC 10.1 k/uL (3.8-10.6)
[2018-08-09 18:28] LABS: INR 0.9 (<1.2); Partial Thromboplastin Time 22.7 sec (22.0-30.0); Prothrombin Time 10.2 sec (9.0-12.0)
[2018-08-10 04:09] LABS: Iron Saturation 31.56 (15.00-50.00)
[2018-08-10 04:11] LABS: Albumin 4.6 g/dL (3.80-4.90); Albumin/Globulin Ratio 2.19 (1.20-2.10); Calcium 9.7 mg/dL (8.7-10.3); Globulin 2.1 g/dL (1.6-3.3); Magnesium 1.9 mg/dL (1.5-2.4); Phosphorus 4.1 mg/dL (2.4-5.1); Potassium 3.8 mmol/L (3.5-5.5); Total Bilirubin 0.6 mg/dL (0.3-1.2); Total Protein 6.7 g/dL (6.2-8.2)
[2018-08-10 04:21] LABS: Vitamin D 25 Hydroxy 30.5 ng/mL (30.0-100.0)
[2018-08-10 04:22] LABS: Folate, Serum 8.3 ng/mL
[2018-08-10 04:54] LABS: Parathyroid Hormone Intact 31.6 pg/mL (14.0-72.0)
[2018-08-10 05:05] LABS: Hemoglobin A1C 5.4 % (4.0-6.0)
[2018-08-10 13:28] LABS: Zinc, Serum 89 ug/dL (60-130)
[2018-08-11 04:30] LABS: Vitamin B1 92 ug/L (38-122)
[2018-08-11 12:13] LABS: Vitamin A 86 ug/dL (38-106)
== END | disposition home or self-care (01) ==
LOC: BARWHC3 14:58
PROVIDERS: ATTEND Surgery Plastic and Reconstructive Surgery
DX: R63.5 Abnormal weight gain (principal); E21.1 Secondary hyperparathyroidism, not elsewhere classified; E89.1 Postprocedural hypoinsulinemia; D50.9 Iron deficiency anemia, unspecified; K90.9 Intestinal malabsorption, unspecified; E55.9 Vitamin D deficiency, unspecified; K76.9 Liver disease, unspecified; N19 Unspecified kidney failure; K50.90 Crohn's disease, unspecified, without complications
CPT/HCPCS: 80053; 80061; 82306; 82525; 82607; 82728; 82746; 83036; 83540; 83550; 83735; 83970; 84100; 84134; 84255; 84425; 84443; 84590; 84630; 85027; 85610; 85730; 99211

== ENCOUNTER 2020-03-22 21:35 | Observation (INO) | payer BC ==
[2020-03-22] MEDS ORDERED: SODIUM CHLORIDE 0.9% 1,000 ML IV STA (21:42)
[2020-03-22 21:55] LABS: Basophils % (A) 0 %; Eosinophils % (A) 0 %; HCT 39.2 % (39.0-53.0); HGB 12.5 gm/dL (13.0-17.5); Lymphocytes # (A) 1.4 k/uL (1.0-4.8); Lymphocytes % (A) 7 %; MCHC 31.9 g/dL (31.0-37.0); Mean Platelet Volume 9.5; Monocytes # (A) 0.8 k/uL (0-1.0); Monocytes % (A) 4 %; Neutrophils # (A) 16.6 k/uL (1.3-7.7); Neutrophils % (A) 87 %; Platelet Count 159 k/uL (150-450); RBC 4.17 m/uL (4.30-5.90); RDW 12.3 % (11.5-15.5)
[2020-03-22 22:10] LABS: Prothrombin Time 10.6 sec (9.0-12.0)
[2020-03-22 22:15] LABS: ALT 21 U/L (4-49); AST 27 U/L (17-59); African American GFR (CKD) 73 (>60 ml/min/1.73 sqM); Albumin 3.5 g/dL (3.5-5.0); Alcohol <10 mg/dL; Alkaline Phosphatase 66 U/L (38-126); Anion Gap 7 mmol/L; Blood Urea Nitrogen 24 mg/dL (9-20); Calcium 8.8 mg/dL (8.4-10.2); Carbon Dioxide 21 mmol/L (22-30); Chloride 109 mmol/L (98-107); Creatine Kinase 200 U/L (55-170); Glucose 125 mg/dL (74-99); Non-African American GFR(CKD) 63 (>60 ml/min/1.73 sqM); Partial Thromboplastin Time 19.6 sec (22.0-30.0); Potassium 3.5 mmol/L (3.5-5.1); Sodium 137 mmol/L (137-145); Total Bilirubin 0.5 mg/dL (0.2-1.3); Total Protein 5.7 g/dL (6.3-8.2)
--- NOTE | 2020-03-22 22:28 | CT ---
EXAMINATION TYPE: CT brain jennifer wo con DATE OF EXAM: 03/22/2020 COMPARISON: None HISTORY: syncope, fall from horse, hit head, CT DLP: 4693.6 mGycm Automated exposure control for dose reduction was used. There is cerebral cortical atrophy. There is no mass effect nor midline shift. There is no sign of in tracranial hemorrhage. The calvarium is intact. Skull base is intact. There is normal aeration of the temporal bones. Cervical vertebra have normal alignment. There is narrowing of disc spaces throughout the cervical sp ine. There is spurring of the endplates. There is multilevel mild cervical facet arthropathy. Prevert ebral soft tissues are intact. IMPRESSION: Multilevel cervical spondylotic changes. No fracture seen. Cerebral atrophy. No acute intracranial abnormality.
--- NOTE | 2020-03-22 22:30 | XR ---
EXAMINATION TYPE: XR chest 2V DATE OF EXAM: 03/22/2020 COMPARISON: NONE HISTORY: Syncope TECHNIQUE: 2 views FINDINGS: Heart is normal. There is 2.5 cm rounded masslike density in the right middle lobe. The oth er lung gerard are clear. There is no heart failure. There are chest leads. Diaphragm is normal. IMPRESSION: Right middle lobe mass also present on the CT scan of 06/15/2017 and probably not changed in size. Normal heart.
--- NOTE | 2020-03-22 22:41 | CT ---
EXAMINATION TYPE: CT abdomen pelvis w con DATE OF EXAM: 03/22/2020 COMPARISON: 06/15/2017 HISTORY: trauma, syncope, fall from horse right hip pain, fue086/100ml iv only given and 0 ml wasted, hx of appy, gastrectomy, bowel resection, CT DLP: 4693.6 mGycm Automated exposure control for dose reduction was used. CONTRAST: Performed with IV Contrast, patient injected with 100 mL of Isovue 300. Images were obtained from the diaphragm to the floor the pelvis with IV contrast. There is a 1.8 cm rounded dense nodule in the lateral aspect of the right middle lobe. Nodule not anton nged in size compared to old exam. Margins are sharp. There is no pleural effusion or pneumothorax. H eart appears slightly enlarged. There are clips at the stomach that could relate to bariatric surgery. Spleen is intact. There is no pancreatic mass. Gallbladder appears normal. Liver shows no focal defect. There is no adrenal mass. There is 8 cm cortical cyst posterior left kidney. There is no retroperiton eal adenopathy. Ureters are not dilated. There is no free fluid in the pelvis. Bladder distends frida hly. There is no inguinal hernia. There is no pelvic mass. There is no mesenteric edema. There is no ascites or free air. There is no bowel obstruction. Appendi x is not seen. There is no sign of thickened appendix. There are large bowel multiple diverticula. Th ere is no evidence of diverticulitis. There are surgical clips at the proximal sigmoid colon. Lumbar vertebra have normal alignment. There is no compression fracture. There is multilevel vacuum d isc. There is spurring of the endplates. The bony pelvis is intact. The hip joints are intact. There is extensive subcutaneous density in the right lower back and right posterior lateral pelvis co nsistent with subcutaneous bruising and hematoma. There is 10 x 3.5 cm hematoma lateral to the right hip joint. There is moderate spinal stenosis at L4-5 due to facet arthropathy and disc bulging. There is less severe spinal stenosis at L3-4. IMPRESSION: Large area of bruising and hematoma in the right posterior soft tissues over the pelvis and lower lum bar spine. Colonic diverticulosis without diverticulitis. 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 Spinal stenosis lower lumbar spine.
[2020-03-22] MEDS ORDERED: ATROPINE SULFATE 0.1 MG/ML 10ML SYRINGE IV STA (23:08)
[2020-03-22 23:09] LABS: Glucose,Whole Blood 122 mg/dL (75-99)
[2020-03-22] MEDS ORDERED: HYDROmorphone 1 MG/ML 1 ML SYRINGE IVP STA (23:52)
[2020-03-22] MEDS ORDERED: NALOXONE 0.4 MG/ML 1 ML VIAL IV PRN (23:55)
--- NOTE | 2020-03-22 23:55 | ED ---
General Adult HPI - General Chief complaint: Syncope Stated complaint: Syncope Time Seen by Provider: 03/22/20 21:40 Source: patient, EMS Mode of arrival: EMS Limitations: no limitations - History of Present Illness Initial comments: Patient is a 64-year-old male who presents emergency department for syncope. EMS report that the patient had a fall from a horse earlier in the day. Patient fell off when the horse was a full gallop. He hit the right side of his head and his right hip. He was able to get up and a bili after the injury. No loss of consciousness. Denied any headache, visual changes, neck pain, confusion, nausea or vomiting. Patient was evaluated by EMS as they were on scene as the patient was at an event with her multiple people riding horses. He signed off on going to the emergency department for full evaluation. Her on leaving the patient stated that he was sitting in a chair. He attempted to stand up to go get something to eat. Patient had pain in his right hip which caused him to feel extremely flush. Patient felt as if he was going to pass out. He sat down in a chair and lost consciousness. Patient was out for approximately 2 minutes. EMS was called. When they arrived they found the patient have low blood pressure and low heart rate. He was immediately alert and oriented. He continued to deny any headache or neck pain. No vision changes. Patient arrives with stable vital signs after a 500 mL bolus of normal saline. Patient denies any chest pain or shortness of breath. No abdominal pain. No nausea or vomiting. No other alleviating, Percepting or modifying factors - Related Data Home Medications Medication Instructions Recorded Confirmed Doxazosin Mesylate [Cardura] 8 mg PO HS 02/10/17 03/23/20 Finasteride [Proscar] 5 mg PO DAILY 02/10/17 03/23/20 Losartan/Hydrochlorothiazide 1 tab PO QAM 02/10/17 03/23/20 [Hyzaar 100-25 Tablet] Sertraline [Zoloft] 150 mg PO QAM 02/10/17 03/23/20 Acetaminophen [Tylenol Arthritis] 1,300 mg PO BID 03/23/20 03/23/20 Aspirin EC [Ecotrin Low Dose] 81 mg PO DAILY 03/23/20 03/23/20 Calcium Chew 2 tab PO DAILY 03/23/20 03/23/20 Etodolac [Lodine] 400 mg PO BID 03/23/20 03/23/20 Ferrous Sulfate [Iron (65 MG 975 mg PO HS 03/23/20 03/23/20 Elemental)] L.acidoph,Paracasei, B.lactis 1 cap PO DAILY 03/23/20 03/23/20 [Probiotic] Montelukast [Singulair] 10 mg PO HS 03/23/20 03/23/20 Multivitamins, Thera [Multivitamin 1 tab PO DAILY 03/23/20 03/23/20 (formulary)] Pravastatin Sodium [Pravachol] 40 mg PO HS 03/23/20 03/23/20 Previous Rx's Medication Instructions Recorded Famotidine [Pepcid] 20 mg PO BID #60 tablet 03/24/20 Allergies Allergy/AdvReac Type Severity Reaction Status Date / Time No Known Allergies Allergy Verified 03/23/20 09:21 Review of Systems ROS Statement: Those systems with pertinent positive or pertinent negative responses have been documented in the HPI. ROS Other: All systems not noted in ROS Statement are negative. Past Medical History Past Medical History: Asthma, Coronary Artery Disease (CAD), GERD/Reflux, Hyperlipidemia, Hypertension, Prostate Disorder, Sleep Apnea/CPAP/BIPAP Additional Past Medical History / Comment(s): Hx diverticulitis History of Any Multi-Drug Resistant Organisms: None Reported Past Surgical History: Appendectomy, Bariatric Surgery, Bowel Resection, Heart Catheterization, Orthopedic Surgery Additional Past Surgical History / Comment(s): repair detached retina, L carpal tunnel sx, sinus sx 03/10, L cataract sleeve gastrectomy 10-10-17 Past Anesthesia/Blood Transfusion Reactions: No Reported Reaction Past Psychological History: No Psychological Hx Reported Smoking Status: Former smoker Past Alcohol Use History: Occasional Past Drug Use History: None Reported - Past Family History Mother Additional Family Medical History / Comment(s): hx. of blood clot somewhere Sister(s) Family Medical History: Cancer Additional Family Medical History / Comment(s): breast General Exam Limitations: no limitations General appearance: alert, in no apparent distress Head exam: Present: normocephalic, normal inspection, other (abrasion right forhead) Eye exam: Present: normal appearance, PERRL, EOMI. Absent: scleral icterus, conjunctival injection, periorbital swelling ENT exam: Present: normal exam, mucous membranes moist Neck exam: Present: normal inspection. Absent: tenderness, meningismus, lymphadenopathy Respiratory exam: Present: normal lung sounds bilaterally. Absent: respiratory distress, wheezes, rales, rhonchi, stridor Cardiovascular Exam: Present: regular rate, normal rhythm, normal heart sounds. Absent: systolic murmur, diastolic murmur, rubs, gallop, clicks GI/Abdominal exam: Present: soft, normal bowel sounds. Absent: distended, tenderness, guarding, rebound, rigid Extremities exam: Present: tenderness (over right buttock and lateral right thigh. Large area of ecchymosis and induration ), normal capillary refill, other (5/5 muscle strength b/l le ). Absent: pedal edema, joint swelling, calf tenderness Back exam: Present: normal inspection Neurological exam: Present: alert, oriented X3, CN II-XII intact Psychiatric exam: Present: normal affect, normal mood Skin exam: Present: warm, dry, intact, normal color. Absent: rash Course Vital Signs 03/22/20 03/22/20 03/22/20 21:39 22:55 23:07 Temperature 98 F Pulse Rate 72 38 L 71 Pulse Rate [ Pulse Oximetery ] Respiratory 18 16 18 Rate Blood Pressure 106/60 89/42 106/60 O2 Sat by Pulse 100 100 99 Oximetry 03/23/20 03/23/20 00:14 00:55 Temperature 97.7 F 99.5 F Pulse Rate 77 Pulse Rate [ 67 Pulse Oximetery ] Respiratory 18 17 Rate Blood Pressure 113/59 O2 Sat by Pulse 98 97 Oximetry Procedures - FAST Exam Fluid in Morison's pouch: No Fluid in Splenorenal Junction: No Fluid around bladder, Transverse view: No Fluid around bladder, Sagittal view: No Limited Echocardiogram view: parasternal Fluid in Pericardial Sac: No Gross Wall Motion Abnormality: No Study normal for this patient: Yes Images saved for further review: Yes Medical Decision Making - Medical Decision Making Upon arrival patient is promptly placed into trauma bay 2. A thorough history and physical exam was performed. Patient has stable vital signs upon arrival. FAST exam is performed and demonstrates no signs of free fluid. Peripheral IV is established. Patient immediately went over for a CT of his head and cervical spine. Chest x-ray is also performed as well as a CT of the patient's abdomen and pelvis. I will tracers were conducted. CT demonstrates no acute intracranial findings. No fracture and the patient's neck. Chest x-ray demonstrates a right middle lobe mass which was previously present 2016. CT of the patient's abdomen and pelvis demonstrates a large area of bruising and hematoma in the right posterior soft tissues over the pelvis and lower lumbar spine. Laboratory studies demonstrate a hemoglobin of 12.5. Lactic acid 2.3. The patient is in the emergency department he does attempt to shift in bed. Has instant pain in his right hip and had an episode of bradycardia and hypotension. He was given 1 mg of atropine with rapid improvement. I called and discussed the case with Dr. Reece who did agree to admit the patient overnight for syncope. I also called and discussed the case with Dr. Medellin today have concern that the patient's pain from his earlier trauma is causing him to have vasovagal syncope. Patient is made aware that neurology and neurosurgery are not present in the hospital. I did recommend transfer to facility for which these 2 providers are available. Patient refused. He understands the risks of remaining hospitalized here without those specialties. Patient states that he does not want to be transferred at this time. Patient was then transferred to floor in stable condition - Lab Data Result diagrams: 03/24/20 05:35 03/24/20 05:35 Lab Results 03/22/20 03/22/20 03/22/20 Range/Units 21:45 21:46 21:46 WBC 19.0 H (3.8-10.6) k/uL RBC 4.17 L (4.30-5.90) m/uL Hgb 12.5 L (13.0-17.5) gm/dL Hct 39.2 (39.0-53.0) % MCV 94.0 (80.0-100.0) fL MCH 30.0 (25.0-35.0) pg MCHC 31.9 (31.0-37.0) g/dL RDW 12.3 (11.5-15.5) % Plt Count 159 (150-450) k/uL Neutrophils % 87 % Lymphocytes % 7 % Monocytes % 4 % Eosinophils % 0 % Basophils % 0 % Neutrophils # 16.6 H (1.3-7.7) k/uL Lymphocytes # 1.4 (1.0-4.8) k/uL Monocytes # 0.8 (0-1.0) k/uL Eosinophils # 0.0 (0-0.7) k/uL Basophils # 0.0 (0-0.2) k/uL PT 10.6 (9.0-12.0) sec INR 1.0 (<1.2) APTT 19.6 L (22.0-30.0) sec Sodium (137-145) mmol/L Potassium (3.5-5.1) mmol/L Chloride (98-107) mmol/L Carbon Dioxide (22-30) mmol/L Anion Gap mmol/L BUN (9-20) mg/dL Creatinine (0.66-1.25) mg/dL Est GFR (CKD-EPI)AfAm (>60 ml/min/1.73 sqM) Est GFR (CKD-EPI)NonAf (>60 ml/min/1.73 sqM) Glucose (74-99) mg/dL POC Glucose (mg/dL) (75-99) mg/dL POC Glu Motor [employer] Driver ID Lactic Ac Sepsis Rflx Plasma Lactic Acid Christo (0.7-2.0) mmol/L Calcium (8.4-10.2) mg/dL Total Bilirubin (0.2-1.3) mg/dL AST (17-59) U/L ALT (4-49) U/L Alkaline Phosphatase (38-126) U/L Creatine Kinase (55-170) U/L Troponin I (0.000-0.034) ng/mL Total Protein (6.3-8.2) g/dL Albumin (3.5-5.0) g/dL Serum Alcohol mg/dL Blood Type B Positive Blood Type Recheck B Pos Bld Type Recheck Status No Antibody Screen NEGATIVE Spec Expiration Date 03/25/2020 - 234403/22/20 03/22/20 03/22/20 Range/Units 21:46 21:46 21:50 WBC (3.8-10.6) k/uL RBC (4.30-5.90) m/uL Hgb (13.0-17.5) gm/dL Hct (39.0-53.0) % MCV (80.0-100.0) fL MCH (25.0-35.0) pg MCHC (31.0-37.0) g/dL RDW (11.5-15.5) % Plt Count (150-450) k/uL Neutrophils % % Lymphocytes % % Monocytes % % Eosinophils % % Basophils % % Neutrophils # (1.3-7.7) k/uL Lymphocytes # (1.0-4.8) k/uL Monocytes # (0-1.0) k/uL Eosinophils # (0-0.7) k/uL Basophils # (0-0.2) k/uL PT (9.0-12.0) sec INR (<1.2) APTT (22.0-30.0) sec Sodium 137 (137-145) mmol/L Potassium 3.5 (3.5-5.1) mmol/L Chloride 109 H (98-107) mmol/L Carbon Dioxide 21 L (22-30) mmol/L Anion Gap 7 mmol/L BUN 24 H (9-20) mg/dL Creatinine 1.20 (0.66-1.25) mg/dL Est GFR (CKD-EPI)AfAm 73 (>60 ml/min/1.73 sqM) Est GFR (CKD-EPI)NonAf 63 (>60 ml/min/1.73 sqM) Glucose 125 H (74-99) mg/dL POC Glucose (mg/dL) (75-99) mg/dL POC Glu Motor Coach Driver ID Lactic Ac Sepsis Rflx Plasma Lactic Acid Christo 2.3 H* (0.7-2.0) mmol/L Calcium 8.8 (8.4-10.2) mg/dL Total Bilirubin 0.5 (0.2-1.3) mg/dL AST 27 (17-59) U/L ALT 21 (4-49) U/L Alkaline Phosphatase 66 (38-126) U/L Creatine Kinase 200 H (55-170) U/L Troponin I 0.014 (0.000-0.034) ng/mL Total Protein 5.7 L (6.3-8.2) g/dL Albumin 3.5 (3.5-5.0) g/dL Serum Alcohol <10 mg/dL Blood Type Blood Type Recheck Bld Type Recheck Status Antibody Screen Spec Expiration Date 03/22/20 03/22/20 Range/Units 23:01 23:04 WBC (3.8-10.6) k/uL RBC (4.30-5.90) m/uL Hgb (13.0-17.5) gm/dL Hct (39.0-53.0) % MCV (80.0-100.0) fL MCH (25.0-35.0) pg MCHC (31.0-37.0) g/dL RDW (11.5-15.5) % Plt Count (150-450) k/uL Neutrophils % % Lymphocytes % % Monocytes % % Eosinophils % % Basophils % % Neutrophils # (1.3-7.7) k/uL Lymphocytes # (1.0-4.8) k/uL Monocytes # (0-1.0) k/uL Eosinophils # (0-0.7) k/uL Basophils # (0-0.2) k/uL PT (9.0-12.0) sec INR (<1.2) APTT (22.0-30.0) sec Sodium (137-145) mmol/L Potassium (3.5-5.1) mmol/L Chloride (98-107) mmol/L Carbon Dioxide (22-30) mmol/L Anion Gap mmol/L BUN (9-20) mg/dL Creatinine (0.66-1.25) mg/dL Est GFR (CKD-EPI)AfAm (>60 ml/min/1.73 sqM) Est GFR (CKD-EPI)NonAf (>60 ml/min/1.73 sqM) Glucose (74-99) mg/dL POC Glucose (mg/dL) 122 H (75-99) mg/dL POC Glu Motor Coach Driver ID Phan Cannon Lactic Ac Sepsis Rflx Y Plasma Lactic Acid Christo (0.7-2.0) mmol/L Calcium (8.4-10.2) mg/dL Total Bilirubin (0.2-1.3) mg/dL AST (17-59) U/L ALT (4-49) U/L Alkaline Phosphatase (38-126) U/L Creatine Kinase (55-170) U/L Troponin I (0.000-0.034) ng/mL Total Protein (6.3-8.2) g/dL Albumin (3.5-5.0) g/dL Serum Alcohol mg/dL Blood Type Blood Type Recheck Bld Type Recheck Status Antibody Screen Spec Expiration Date Disposition Clinical Impression: Vasovagal syncope, Blunt head trauma, Blunt trauma of hip, Hematoma, Bradycardia, Leukocytosis Disposition: ADMITTED IP TO THIS HOSP Condition: Stable Is patient prescribed a controlled substance at d/c from ED?: No Decision to Admit Reason: Admit from EC Decision Date: 03/22/20 Decision Time: 23:55
[2020-03-23 00:33] LABS: Appearance,Urine Clear (Clear); Basophils % (A) 0 %; Bilirubin,Urine 2+ (Negative); Blood,Urine Negative (Negative); Color,Urine Yellow; Eosinophils # (A) 0.1 k/uL (0-0.7); Eosinophils % (A) 1 %; Glucose,Urine (UA) Negative (Negative); HCT 36.3 % (39.0-53.0); Ketones,Urine Negative (Negative); Leukocyte Esterase,Urine Negative (Negative); Lymphocytes # (A) 0.8 k/uL (1.0-4.8); Lymphocytes % (A) 6 %; MCH 30.9 pg (25.0-35.0); MCV 93.7 fL (80.0-100.0); Mean Platelet Volume 9.6; Monocytes # (A) 0.4 k/uL (0-1.0); Monocytes % (A) 3 %; Neutrophils # (A) 12.7 k/uL (1.3-7.7); Neutrophils % (A) 90 %; Nitrite,Urine Negative (Negative); PH, Urine 5.5 (5.0-8.0); Platelet Count 137 k/uL (150-450); Protein,Urine Trace (Negative); RBC 3.87 m/uL (4.30-5.90); RDW 12.3 % (11.5-15.5); Specific Gravity,Urine 1.039 (1.001-1.035); Urobilinogen,Urine <2.0 mg/dL (<2.0); WBC 14.1 k/uL (3.8-10.6)
[2020-03-23] MEDS ORDERED: ATROPINE SULFATE 0.1 MG/ML 10ML SYRINGE IV PRN (00:48)
[2020-03-23] MEDS: SODIUM CHLORIDE 0.9% 1,000 ML IV SCH ×3 (00:52→20:08)
[2020-03-23] MEDS: HYDROmorphone 1 MG/ML 1 ML SYRINGE IVP PRN ×6 (03:39→20:11)
--- NOTE | 2020-03-23 09:38 | P.GSCN ---
History of Present Illness Consult date: 03/23/20 History of present illness: 64-year-old male presented to the emergency department after recent fall off of a horse. He states that the horse was spooked and was moving at full speed and he did fall onto his right hip and did hit the right side of his head. He denied any loss of consciousness at that time. He states that he was evaluated by EMS on the scene and states he began to feel better and decided not to present to the emergency Department. He states about 3 hours later, he began to feel dizzy and felt as if he was going to pass out and according to the patient at that point he did lose consciousness. Based on patient's family, he was unconscious for approximately 2 minutes. EMS was called back and he was found to be hypotensive. He was administered a fluid bolus and states that his blood pressure did improve. And he was brought to the emergency department. In the emergency department, the patient states that he was having right hip pain but denied any headache, chest pain, chills, fever or abdominal pain. He denies any nausea or vomiting. Since his admission, the patient has not had any hypotensive episodes. He states he is no longer feeling dizzy. Review of Systems All systems: negative Past Medical History Past Medical History: Asthma, Coronary Artery Disease (CAD), GERD/Reflux, Hyperlipidemia, Hypertension, Prostate Disorder, Sleep Apnea/CPAP/BIPAP Additional Past Medical History / Comment(s): Hx diverticulitis History of Any Multi-Drug Resistant Organisms: None Reported Past Surgical History: Appendectomy, Bariatric Surgery, Bowel Resection, Heart Catheterization, Orthopedic Surgery Additional Past Surgical History / Comment(s): repair detached retina, L carpal tunnel sx, sinus sx 03/10, L cataract sleeve gastrectomy 10-10-17 Past Anesthesia/Blood Transfusion Reactions: No Reported Reaction Past Psychological History: No Psychological Hx Reported Smoking Status: Former smoker Past Alcohol Use History: Occasional Past Drug Use History: None Reported - Past Family History Mother Additional Family Medical History / Comment(s): hx. of blood clot somewhere Sister(s) Family Medical History: Cancer Additional Family Medical History / Comment(s): breast Medications and Allergies Home Medications Medication Instructions Recorded Confirmed Type Doxazosin Mesylate [Cardura] 8 mg PO HS 02/10/17 03/23/20 History Finasteride [Proscar] 5 mg PO DAILY 02/10/17 03/23/20 History Losartan/Hydrochlorothiazide 1 tab PO QAM 02/10/17 03/23/20 History [Hyzaar 100-25 Tablet] Sertraline [Zoloft] 150 mg PO QAM 02/10/17 03/23/20 History Verapamil HCl [Verapamil ER] 240 mg PO QAM 02/10/17 03/23/20 History Acetaminophen [Tylenol Arthritis] 1,300 mg PO BID 03/23/20 03/23/20 History Aspirin EC [Ecotrin Low Dose] 81 mg PO DAILY 03/23/20 03/23/20 History Calcium Chew 2 tab PO DAILY 03/23/20 03/23/20 History Etodolac [Lodine] 400 mg PO BID 03/23/20 03/23/20 History Ferrous Sulfate [Feosol] 975 mg PO HS 03/23/20 03/23/20 History L.acidoph,Paracasei, B.lactis 1 cap PO DAILY 03/23/20 03/23/20 History [Probiotic] Montelukast [Singulair] 10 mg PO HS 03/23/20 03/23/20 History Multivitamins, Thera [Multivitamin 1 tab PO DAILY 03/23/20 03/23/20 History (formulary)] Pravastatin Sodium [Pravachol] 40 mg PO HS 03/23/20 03/23/20 History Allergies Allergy/AdvReac Type Severity Reaction Status Date / Time No Known Allergies Allergy Verified 03/23/20 09:21 Surgical - Exam Osteopathic Statement: *. No significant issues noted on an osteopathic str uctural exam other than those noted in the History and Physical/Consult. Vital Signs Temp Pulse Resp BP Pulse Ox 98 F 72 18 106/60 100 03/22/20 21:39 03/22/20 21:39 03/22/20 21:39 03/22/20 21:39 03/22/20 21:39 - General well developed, well nourished, no distress - Eyes PERRL, normal ocular movement - ENT normal nares, normal mucosa, no hearing loss - Neck no masses, no bruits, trachea midline - Respiratory normal expansion, normal respiratory effort - Abdomen Soft, nontender, nondistended, no rebound, no guarding - Integumentary Forehead with abrasion noted - Neurologic normal coordination, normal sensation - Musculoskeletal Right hip with significant amount of ecchymosis noted - Psychiatric oriented to time, oriented to person, oriented to place Results - Labs 03/23/20 00:14 03/22/20 21:46 Abnormal Lab Results - Last 24 Hours (Table) 03/22/20 03/22/20 03/22/20 Range/Units 21:46 21:46 21:46 WBC 19.0 H (3.8-10.6) k/uL RBC 4.17 L (4.30-5.90) m/uL Hgb 12.5 L (13.0-17.5) gm/dL Hct (39.0-53.0) % Plt Count (150-450) k/uL Neutrophils # 16.6 H (1.3-7.7) k/uL Lymphocytes # (1.0-4.8) k/uL APTT 19.6 L (22.0-30.0) sec Chloride 109 H (98-107) mmol/L Carbon Dioxide 21 L (22-30) mmol/L BUN 24 H (9-20) mg/dL Glucose 125 H (74-99) mg/dL POC Glucose (mg/dL) (75-99) mg/dL Plasma Lactic Acid Christo (0.7-2.0) mmol/L Creatine Kinase 200 H (55-170) U/L Total Protein 5.7 L (6.3-8.2) g/dL Ur Specific [place] (1.001-1.035) Urine Protein (Negative) Urine Bilirubin (Negative) 03/22/20 03/22/20 03/23/20 Range/Units 21:50 23:01 00:14 WBC (3.8-10.6) k/uL RBC (4.30-5.90) m/uL Hgb (13.0-17.5) gm/dL Hct (39.0-53.0) % Plt Count (150-450) k/uL Neutrophils # (1.3-7.7) k/uL Lymphocytes # (1.0-4.8) k/uL APTT (22.0-30.0) sec Chloride (98-107) mmol/L Carbon Dioxide (22-30) mmol/L BUN (9-20) mg/dL Glucose (74-99) mg/dL POC Glucose (mg/dL) 122 H (75-99) mg/dL Plasma Lactic Acid Christo 2.3 H* (0.7-2.0) mmol/L Creatine Kinase (55-170) U/L Total Protein (6.3-8.2) g/dL Ur Specific [place] 1.039 H (1.001-1.035) Urine Protein Trace H (Negative) Urine Bilirubin 2+ H (Negative) 03/23/20 Range/Units 00:14 WBC 14.1 H (3.8-10.6) k/uL RBC 3.87 L (4.30-5.90) m/uL Hgb 12.0 L (13.0-17.5) gm/dL Hct 36.3 L (39.0-53.0) % Plt Count 137 L (150-450) k/uL Neutrophils # 12.7 H (1.3-7.7) k/uL Lymphocytes # 0.8 L (1.0-4.8) k/uL APTT (22.0-30.0) sec Chloride (98-107) mmol/L Carbon Dioxide (22-30) mmol/L BUN (9-20) mg/dL Glucose (74-99) mg/dL POC Glucose (mg/dL) (75-99) mg/dL Plasma Lactic Acid Christo (0.7-2.0) mmol/L Creatine Kinase (55-170) U/L Total Protein (6.3-8.2) g/dL Ur Specific [place] (1.001-1.035) Urine Protein (Negative) Urine Bilirubin (Negative) Diabetes panel 03/22/20 Range/Units 21:46 Sodium 137 (137-145) mmol/L Potassium 3.5 (3.5-5.1) mmol/L Chloride 109 H (98-107) mmol/L Carbon Dioxide 21 L (22-30) mmol/L BUN 24 H (9-20) mg/dL Creatinine 1.20 (0.66-1.25) mg/dL Glucose 125 H (74-99) mg/dL Calcium 8.8 (8.4-10.2) mg/dL AST 27 (17-59) U/L ALT 21 (4-49) U/L Alkaline Phosphatase 66 (38-126) U/L Total Protein 5.7 L (6.3-8.2) g/dL Albumin 3.5 (3.5-5.0) g/dL Calcium panel 03/22/20 Range/Units 21:46 Calcium 8.8 (8.4-10.2) mg/dL Albumin 3.5 (3.5-5.0) g/dL Pituitary panel 03/22/20 Range/Units 21:46 Sodium 137 (137-145) mmol/L Potassium 3.5 (3.5-5.1) mmol/L Chloride 109 H (98-107) mmol/L Carbon Dioxide 21 L (22-30) mmol/L BUN 24 H (9-20) mg/dL Creatinine 1.20 (0.66-1.25) mg/dL Glucose 125 H (74-99) mg/dL Calcium 8.8 (8.4-10.2) mg/dL Adrenal panel 03/22/20 Range/Units 21:46 Sodium 137 (137-145) mmol/L Potassium 3.5 (3.5-5.1) mmol/L Chloride 109 H (98-107) mmol/L Carbon Dioxide 21 L (22-30) mmol/L BUN 24 H (9-20) mg/dL Creatinine 1.20 (0.66-1.25) mg/dL Glucose 125 H (74-99) mg/dL Calcium 8.8 (8.4-10.2) mg/dL Total Bilirubin 0.5 (0.2-1.3) mg/dL AST 27 (17-59) U/L ALT 21 (4-49) U/L Alkaline Phosphatase 66 (38-126) U/L Total Protein 5.7 L (6.3-8.2) g/dL Albumin 3.5 (3.5-5.0) g/dL Assessment and Plan (1) Blunt head trauma Narrative/Plan: Patient is noted to have a abrasion on the forehead. CT of the head and neck were negative for any traumatic injury. Based on the patient's syncopal episode, I would recommend Cardiologic and neurologic workup. The patient apparently did refuse transfer for neurologic workup from the emergency department as this institution does not have neurologic consulting service at this time. I do recommend patient has neurology evaluation. Current Visit: Yes Status: Acute Code(s): S09.8XXA - OTHER SPECIFIED INJURIES OF HEAD, INITIAL ENCOUNTER SNOMED Code(s): 60438764 (2) Blunt trauma of hip Narrative/Plan: CT of the abdomen and pelvis was reviewed. The patient is noted to have a 10 cm x 3.5 cm hematoma of the right hip. This does not appear to have any active hemorrhage, patient's hemoglobin has remained stable at 12.0. He is not having any focal deficits of the lower extremities. I did recommend warm compresses over this area beginning in 24 hours. He will likely require some sort of pain control on discharge. Current Visit: Yes Status: Acute Code(s): S79.819A - OTHER SPECIFIED INJURIES OF UNSPECIFIED HIP, INIT ENCNTR SNOMED Code(s): 607564301
[2020-03-23] MEDS: ETODOLAC 400 MG TAB PO SCH ×2 (11:54→20:09)
[2020-03-23] MEDS: SERTRALINE 50 MG TAB PO SCH (11:54)
[2020-03-23] MEDS: FINASTERIDE 5 MG TAB PO SCH (11:55)
[2020-03-23 12:40] LABS: Basophils % (A) 0 %; Eosinophils # (A) 0.2 k/uL (0-0.7); Eosinophils % (A) 2 %; HCT 36.8 % (39.0-53.0); HGB 11.8 gm/dL (13.0-17.5); Lymphocytes # (A) 1.1 k/uL (1.0-4.8); Lymphocytes % (A) 10 %; MCH 30.4 pg (25.0-35.0); MCHC 32.1 g/dL (31.0-37.0); MCV 94.9 fL (80.0-100.0); Mean Platelet Volume 9.5; Monocytes # (A) 0.6 k/uL (0-1.0); Monocytes % (A) 6 %; Neutrophils % (A) 81 %; Platelet Count 154 k/uL (150-450); RBC 3.88 m/uL (4.30-5.90); RDW 12.4 % (11.5-15.5)
--- NOTE | 2020-03-23 16:22 | P.HPIM ---
History of Present Illness H&P Date: 03/23/20 Chief Complaint: Passed out History of presenting complaint: This is a very pleasant [address] Manning.. Chronic stable medical conditions include hypertension, hyperlipidemia, obstructive sleep apnea uses CPAP machine, diverticulosis. Patient's had sleep gastrectomy in the past and as lost over 80 pounds. Since then asthma has been under control with no medications, GERD symptoms have resolved. Yes[place] the [place]. The right ear group of people. One of the horses apparently got upset and several horses started running around. Given patient's horse took off and started running. At some point horse turned to one side and patient was thrown out of the other side landing on his right buttock. Patient was jolted but never passed out. No head injury. This was around 5 PM. Patient has been out there since 2 PM. Late in the evening they're planning to go out for dinner. Patient was sitting down in the barn. He got up and felt nauseated felt dizzy decided to sit down the patient passed out for about 2 minutes. Patient had his lunch before 2 PM and had not really eaten since this time. She'll only taken little fluids. Patient's found to be hypotensive by the EMS. Patient had an episode of near-syncope in the ER. No arrhythmia was detected. No chest pain or palpitation. Patient has a good-sized bruise on the right buttock. Patient's son at the bedside. Patient has no neurological symptoms. No change in vision or dizziness, lightheadedness. No focal weakness. No bleeding from the ER of the nose. Patient's heart rate normal runs in the 70s and the blood pressure always runs around 1 20 x 80. Review of systems: GEN.: Tired EYES: None HEENT: None NECK: None RESPIRATORY: None CARDIOVASCULAR: None GASTROINTESTINAL: None GENITOURINARY: None MUSCULOSKELETAL: Right hip pain LYMPHATICS: None HEMATOLOGICAL: None PSYCHIATRY: None NEUROLOGICAL: None Past medical history to include: GERD corrected, hypertension, hyperlipidemia, EPH, also sleep apnea, diverticulitis, repair of detached retina, sleep gastrectomy in 2018 has lost over 80 pounds. Social history: Alcohol Occasionally. Smoked for 10 years stopped about 40 years ago. . Is a computer network support specialist. Physical examination: VITAL SIGNS: 98, 72, 18, 89 x 42, 100% on room air GENERAL: [BMI 34.9, laying in bed comfortable. EYES: Pupils equal. Conjunctiva normal. HEENT: External appearance of nose and ears normal, oral cavity grossly normal. NECK: JVD not raised; masses not palpable. HEART: First and second heart sounds are normal; no edema. LUNGS: Respiratory rate normal; clear to auscultation. EXTREMITIES: Patient has a bruising around the right buttock extending over the right hip . Mild tenderness. ABDOMEN: Soft, nontender, liver spleen not palpable, no masses palpable. PSYCH: Alert and oriented x3; mood and affect normal. NEUROLOGICAL: Cranial nerves grossly intact; no facial asymmetry, power and sensation grossly intact. LYMPHATICS: No lymph nodes palpable in the axilla and neck INVESTIGATIONS, reviewed in the clinical context: White count 19 hemoglobin 12.5 platelets 159 potassium 3.5 creatinine 1.2 lactic acid 2.3 CPK 200 troponin I 0.014, 0.024 serum alcohol less than 10 EKG tracing normal sinus rhythm, prolonged QT interval Chest x-ray film personally reviewed by me-borderline cardiomegaly. Lung gerard appear to be clear. Per report 2.5 cm mass present from 2017. Computed tomography scan of the abdomen pelvis-1.8 cm rounded dense nodule in the lateral aspect of the right middle lobe, multiple diverticula. Evidence of extensive subacute is a density on the right side and a hematoma 10 cm x 3.5 cm. Spinal stenosis Assessment: -Hypotension, resulting from patient being dehydrated with poor fluid intake from 2:00 to the evening and also patient was riding his horse for over 3 hours and ambient temperature was high. Also loss of blood in the hematoma. -Right buttock and subcutaneous hematoma secondary to blunt trauma from fall -Obesity BMI 34.9 -History of sleep gastrectomy -Colonic diverticulosis asymptomatic -Lactic acidosis type II likely from hypotension. No clinical evidence of infection. -Reactive leukocytosis -Essential hypertension -Hyperlipidemia -Obstructive sleep apnea uses CPAP -Intermittent asthma controlled -BPH -Syncope likely from hypotension. Plan: Patient was given IV fluids. Continue the same. Hematoma be closely monitored. Patient heart is running on the lower side as is the blood pressures also running low but hold of the verapamil. Other medications to be resumed. We'll give KELSIE stockings. Hold off Lovenox because of bruising. Other home medications to be resumed. Keep on telemetry. Consultation was made to general surgery for trauma and cardiology. Patient denies any cardiac or respiratory symptoms. We will watch for 24 hours. Activity as tolerated.. Past Medical History Past Medical History: Asthma, Coronary Artery Disease (CAD), GERD/Reflux, Hype rlipidemia, Hypertension, Prostate Disorder, Sleep Apnea/CPAP/BIPAP Additional Past Medical History / Comment(s): Hx diverticulitis History of Any Multi-Drug Resistant Organisms: None Reported Past Surgical History: Appendectomy, Bariatric Surgery, Bowel Resection, Heart Catheterization, Orthopedic Surgery Additional Past Surgical History / Comment(s): repair detached retina, L carpal tunnel sx, sinus sx 03/10, L cataract sleeve gastrectomy 10-10-17 Past Anesthesia/Blood Transfusion Reactions: No Reported Reaction Past Psychological History: No Psychological Hx Reported Smoking Status: Former smoker Past Alcohol Use History: Occasional Past Drug Use History: None Reported - Past Family History Mother Additional Family Medical History / Comment(s): hx. of blood clot somewhere Sister(s) Family Medical History: Cancer Additional Family Medical History / Comment(s): breast Medications and Allergies Home Medications Medication Instructions Recorded Confirmed Type Doxazosin Mesylate [Cardura] 8 mg PO HS 02/10/17 03/23/20 History Finasteride [Proscar] 5 mg PO DAILY 02/10/17 03/23/20 History Losartan/Hydrochlorothiazide 1 tab PO QAM 02/10/17 03/23/20 History [Hyzaar 100-25 Tablet] Sertraline [Zoloft] 150 mg PO QAM 02/10/17 03/23/20 History Verapamil HCl [Verapamil ER] 240 mg PO QAM 02/10/17 03/23/20 History Acetaminophen [Tylenol Arthritis] 1,300 mg PO BID 03/23/20 03/23/20 History Aspirin EC [Ecotrin Low Dose] 81 mg PO DAILY 03/23/20 03/23/20 History Calcium Chew 2 tab PO DAILY 03/23/20 03/23/20 History Etodolac [Lodine] 400 mg PO BID 03/23/20 03/23/20 History Ferrous Sulfate [Feosol] 975 mg PO HS 03/23/20 03/23/20 History L.acidoph,Paracasei, B.lactis 1 cap PO DAILY 03/23/20 03/23/20 History [Probiotic] Montelukast [Singulair] 10 mg PO HS 03/23/20 03/23/20 History Multivitamins, Thera [Multivitamin 1 tab PO DAILY 03/23/20 03/23/20 History (formulary)] Pravastatin Sodium [Pravachol] 40 mg PO HS 03/23/20 03/23/20 History Allergies Allergy/AdvReac Type Severity Reaction Status Date / Time No Known Allergies Allergy Verified 03/23/20 09:21 Physical Exam Vitals: Vital Signs Temp Pulse Pulse Resp BP BP Pulse Ox 03/23/20 07:45 98.0 F 66 16 105/63 99 03/23/20 02:12 66 18 03/23/20 02:09 98.9 F 66 18 103/65 97 03/23/20 00:55 99.5 F 77 17 113/59 97 03/23/20 00:14 97.7 F 67 18 98 03/22/20 23:07 71 18 106/60 99 03/22/20 22:55 38 L 16 89/42 100 03/22/20 21:39 98 F 72 18 106/60 100 Intake and Output 03/22/20 03/23/20 03/23/20 22:59 06:59 14:59 Intake Total 475 Balance 475 Intake: IV 475 Sodium Chloride 0.9% 1, 475 000 ml @ 100 mls/hr IV . Q10H [facility] Rx#:[id number] Other: Voiding Method Urinal Urinal # Voids 0 Weight 113.398 kg 113.398 kg Results CBC & Chem 7: 03/23/20 12:28 03/22/20 21:46 Labs: Abnormal Lab Results - Last 24 Hours (Table) 03/22/20 03/22/20 03/22/20 Range/Units 21:46 21:46 21:46 WBC 19.0 H (3.8-10.6) k/uL RBC 4.17 L (4.30-5.90) m/uL Hgb 12.5 L (13.0-17.5) gm/dL Hct (39.0-53.0) % Plt Count (150-450) k/uL Neutrophils # 16.6 H (1.3-7.7) k/uL Lymphocytes # (1.0-4.8) k/uL APTT 19.6 L (22.0-30.0) sec Chloride 109 H (98-107) mmol/L Carbon Dioxide 21 L (22-30) mmol/L BUN 24 H (9-20) mg/dL Glucose 125 H (74-99) mg/dL POC Glucose (mg/dL) (75-99) mg/dL Plasma Lactic Acid Christo (0.7-2.0) mmol/L Creatine Kinase 200 H (55-170) U/L Total Protein 5.7 L (6.3-8.2) g/dL Ur Specific [place] (1.001-1.035) Urine Protein (Negative) Urine Bilirubin (Negative) 03/22/20 03/22/20 03/23/20 Range/Units 21:50 23:01 00:14 WBC (3.8-10.6) k/uL RBC (4.30-5.90) m/uL Hgb (13.0-17.5) gm/dL Hct (39.0-53.0) % Plt Count (150-450) k/uL Neutrophils # (1.3-7.7) k/uL Lymphocytes # (1.0-4.8) k/uL APTT (22.0-30.0) sec Chloride (98-107) mmol/L Carbon Dioxide (22-30) mmol/L BUN (9-20) mg/dL Glucose (74-99) mg/dL POC Glucose (mg/dL) 122 H (75-99) mg/dL Plasma Lactic Acid Christo 2.3 H* (0.7-2.0) mmol/L Creatine Kinase (55-170) U/L Total Protein (6.3-8.2) g/dL Ur Specific [place] 1.039 H (1.001-1.035) Urine Protein Trace H (Negative) Urine Bilirubin 2+ H (Negative) 03/23/20 Range/Units 00:14 WBC 14.1 H (3.8-10.6) k/uL RBC 3.87 L (4.30-5.90) m/uL Hgb 12.0 L (13.0-17.5) gm/dL Hct 36.3 L (39.0-53.0) % Plt Count 137 L (150-450) k/uL Neutrophils # 12.7 H (1.3-7.7) k/uL Lymphocytes # 0.8 L (1.0-4.8) k/uL APTT (22.0-30.0) sec Chloride (98-107) mmol/L Carbon Dioxide (22-30) mmol/L BUN (9-20) mg/dL Glucose (74-99) mg/dL POC Glucose (mg/dL) (75-99) mg/dL Plasma Lactic Acid Christo (0.7-2.0) mmol/L Creatine Kinase (55-170) U/L Total Protein (6.3-8.2) g/dL Ur Specific [place] (1.001-1.035) Urine Protein (Negative) Urine Bilirubin (Negative) Thrombosis Risk Factor Assmnt - Choose All That Apply Any of the Below Risk Factors Present?: No Other Risk Factors: Yes Each Risk Factor Represents 2 Points: Age 61-74 years Thrombosis Risk Factor Assessment Total Risk Factor Score: 2 Thrombosis Risk Factor Assessment Level: Low Risk
[2020-03-23] MEDS ORDERED: MAGNESIUM HYDROXIDE 2,400 MG/10 ML CUP PO PRN (16:24)
[2020-03-23] MEDS ORDERED: CALCIUM CARBONATE 500 MG CHEWABLE PO PRN (16:24)
[2020-03-23] MEDS ORDERED: MELATONIN 3 MG TABLET PO PRN (16:24)
[2020-03-23] MEDS ORDERED: ACETAMINOPHEN TAB 325 MG TAB PO PRN (16:24)
[2020-03-23] MEDS ORDERED: MAG HYDROX/AL HYDROX/SIMETH 30 ML CUP PO PRN (16:24)
[2020-03-23] MEDS ORDERED: LACTULOSE 20 GM/30 ML CUP PO PRN (16:24)
[2020-03-23] MEDS ORDERED: ALPRAZolam 0.25 MG TAB PO PRN (16:24)
[2020-03-23] MEDS ORDERED: ONDANSETRON 4 MG/2 ML VIAL IVP PRN (16:24)
[2020-03-23] MEDS ORDERED: DOXAZOSIN 4 MG TAB PO SCH (21:00)
[2020-03-23] MEDS ORDERED: MONTELUKAST 10 MG TAB PO SCH (21:00)
[2020-03-23] MEDS ORDERED: PRAVASTATIN SODIUM 40 MG TAB PO SCH (21:00)
[2020-03-23] MEDS: FERROUS SULFATE 325 MG TAB PO SCH (21:31)
[2020-03-24] MEDS: HYDROmorphone 1 MG/ML 1 ML SYRINGE IVP PRN ×2 (04:54→08:18)
[2020-03-24] MEDS: SODIUM CHLORIDE 0.9% 1,000 ML IV SCH (05:49)
[2020-03-24 06:51] LABS: Basophils % (A) 0 %; Eosinophils # (A) 0.3 k/uL (0-0.7); Eosinophils % (A) 4 %; HCT 34.2 % (39.0-53.0); Lymphocytes % (A) 13 %; MCH 30.8 pg (25.0-35.0); MCHC 32.1 g/dL (31.0-37.0); MCV 96.1 fL (80.0-100.0); Mean Platelet Volume 9.8; Monocytes # (A) 0.4 k/uL (0-1.0); Monocytes % (A) 6 %; Neutrophils # (A) 5.8 k/uL (1.3-7.7); Neutrophils % (A) 76 %; Platelet Count 133 k/uL (150-450); RBC 3.56 m/uL (4.30-5.90); RDW 12.3 % (11.5-15.5); WBC 7.6 k/uL (3.8-10.6)
[2020-03-24 07:05] LABS: African American GFR (CKD) >90 (>60 ml/min/1.73 sqM); Anion Gap 6 mmol/L; Blood Urea Nitrogen 22 mg/dL (9-20); Carbon Dioxide 23 mmol/L (22-30); Chloride 108 mmol/L (98-107); Glucose 90 mg/dL (74-99); Non-African American GFR(CKD) >90 (>60 ml/min/1.73 sqM); Potassium 4.1 mmol/L (3.5-5.1); Sodium 137 mmol/L (137-145)
[2020-03-24] MEDS: ETODOLAC 400 MG TAB PO SCH (08:15)
[2020-03-24] MEDS: FINASTERIDE 5 MG TAB PO SCH (08:16)
[2020-03-24] MEDS: FERROUS SULFATE 325 MG TAB PO SCH (08:16)
[2020-03-24] MEDS: SERTRALINE 50 MG TAB PO SCH (08:16)
--- NOTE | 2020-03-24 08:23 | P.PN ---
Subjective Progress Note Date: 03/24/20 Patient seen and examined at bedside. Complains of soreness of the right hip. Hemoglobin is 11.0 today. Objective - Vital Signs Vital signs: Vital Signs Temp 99 F 03/24/20 04:50 Pulse 78 03/24/20 04:50 Resp 17 03/24/20 04:50 BP 135/74 03/24/20 04:50 Pulse Ox 97 03/24/20 04:50 Intake & Output 03/23/20 03/24/20 03/24/20 18:59 06:59 18:59 Intake Total 1420 900 Balance 1420 900 Intake: IV 900 Sodium Chloride 0.9% 1, 900 000 ml @ 100 mls/hr IV . Q10H [facility] Rx#:[id number] Intake, IV Titration 700 Amount Sodium Chloride 0.9% 1, 700 000 ml @ 100 mls/hr IV . Q10H [facility] Rx#:[id number] Oral 720 Other: Voiding Method Urinal Toilet Urinal # Voids 3 - Constitutional General appearance: Present: cooperative, no acute distress - Respiratory Details: No difficulty with respiration - Gastrointestinal Gastrointestinal Comment(s): Soft, nontender, nondistended, no rebound, no guarding - Integumentary Integumentary Comment(s): Right hip with increased ecchymosis today - Psychiatric Psychiatric: Present: A&O x's 3 - Labs CBC & Chem 7: 03/24/20 05:35 03/24/20 05:35 Labs: Abnormal Lab Results - Last 24 Hours (Table) 03/23/20 03/24/20 03/24/20 Range/Units 12:28 05:35 05:35 WBC 11.0 H (3.8-10.6) k/uL RBC 3.88 L 3.56 L (4.30-5.90) m/uL Hgb 11.8 L 11.0 L (13.0-17.5) gm/dL Hct 36.8 L 34.2 L (39.0-53.0) % Plt Count 133 L (150-450) k/uL Neutrophils # 9.0 H (1.3-7.7) k/uL Chloride 108 H (98-107) mmol/L BUN 22 H (9-20) mg/dL Calcium 8.0 L (8.4-10.2) mg/dL Assessment and Plan (1) Blunt head trauma Narrative/Plan: Patient is noted to have a abrasion on the forehead. CT of the head and neck were negative for any traumatic injury. Based on the patient's syncopal episode, I would recommend Cardiologic and neurologic workup. The patient apparently did refuse transfer for neurologic workup from the emergency department as this institution does not have neurologic consulting service at this time. I do recommend patient has neurology evaluation. Current Visit: Yes Status: Acute Code(s): S09.8XXA - OTHER SPECIFIED INJURIES OF HEAD, INITIAL ENCOUNTER SNOMED Code(s): 40132059 (2) Blunt trauma of hip Narrative/Plan: CT of the abdomen and pelvis was reviewed. The patient is noted to have a 10 cm x 3.5 cm hematoma of the right hip. Hemoglobin is 11.0 today, from 12.0 yesterday. Does not appear to have active hemorrhage symptoms. Recommended alternating between cold and warm compresses to the right hip. Hold any anticoagulation. Pain control as necessary. Current Visit: Yes Status: Acute Code(s): S79.819A - OTHER SPECIFIED INJURIES OF UNSPECIFIED HIP, INIT ENCNTR SNOMED Code(s): 864360096
[2020-03-24 09:06] VITALS: BP 121/73; PULSE 84; RESP 16; TEMP 98.1
--- NOTE | 2020-03-24 10:09 | P.CRDCN ---
History of Present Illness Consult date: 03/24/20 Reason for Consult (text): Syncope History of present illness: HISTORY OF PRESENTING ILLNESS This is a pleasant 64-year-old male with history of hypertension, hyperlipidemia, obstructive sleep apnea, lung mass which has been biopsied and has been benign in the past, murmur since a teenager and mild nonobstructive coronary artery disease per patient who presents secondary to recent fall and then syncopal and near syncopal episodes. 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 He did admit to severe amount of pain however was okay in the few minutes afterwards. After a few minutes she tried standing up and walking and became lightheaded and then passed out. He admits he had not eaten much or drink much that morning. He denies prior episodes of lightheadedness or dizziness. Occasionally however he does get lightheaded if he stands up too quick however this is always positional. He admits he has been told he has a murmur since he was around 8 years of age. He states he had a heart catheterization at the age of 8 for this murmur however has not been told he had any significant valvular heart d isease. He follows with a doctor out of [place] however admits he has not had an echo in the last year or so. He was found to be hypotensive with initial blood pressure 89/42 which has since improved. His verapamil was stopped. He has been able walk the halls without any difficulty and no further lightheadedness. DIAGNOSTICS EKG reveals sinus rhythm with PVC, normal axis, nonspecific ST-T waves. Chest xray right middle lobe mass similar to CAT scan from 2017, no acute process otherwise. CT abdomen and pelvis showed large area of bruising and hematoma in the right posterior soft tissues over the pelvis Laboratory reviewed, white blood cell count 7.6, hemoglobin 11.0, platelets 133, creatinine 0.7, troponin negative 3. Current cardiac medications include Cardura 8 mg at night, pravastatin 40 mg daily, verapamil was discontinued on admission. REVIEW OF SYSTEMS At the time of my exam: CONSTITUTIONAL: Denies fever or chills. CARDIOVASCULAR: Denies chest pain, shortness of breath, orthopnea, PND or palpitations. RESPIRATORY: Denies cough. GASTROINTESTINAL: Denies abdominal pain, diarrhea, constipation, nausea or vomiting. MUSCULOSKELETAL: Denies myalgias. NEUROLOGIC: Denies numbness, tingling or weakness. ENDOCRINE: Denies fatigue, weight change, polydipsia or polyurina. GENITOURINARY: Denies burning, hematuria or urgency with micturation. HEMATOLOGIC: Denies history of anemia or bleeding. PHYSICAL EXAMINATION Blood pressure 121/73 heart rate 84 afebrile and maintaining oxygen saturation on room air. CONSTITUTIONAL: No apparent distress. HEENT: Head is normocephalic. Pupils are equal, round. Sclerae anicteric. Mucous membranes of the mouth are moist. No JVD. No carotid bruit. CHEST EXAMINATION: Lungs are clear to auscultation. No chest wall tenderness is noted on palpation or with deep breathing. HEART EXAMINATION: Regular rate and rhythm. S1, S2 heard. +3/6 systolic murmur, no gallops or rub. ABDOMEN: Soft, nontender. Positive bowel sounds. EXTREMITIES: 2+ peripheral pulses, no lower extremity edema and no calf tenderness. NEUROLOGIC EXAMINATION: Patient is awake, alert and oriented x3. ASSESSMENT 1. Syncope after trauma from a horse fall. Likely combination of vasovagal response from pain, mild dehydration from not eating that day plus mild blood loss from hematoma in his buttocks. He does however have a significant murmur and we will check 2-D echo to evaluate for any valvular heart disease or structural heart disease. 2. Murmur since he is was a child. He does follow with a sanitor in [place] however no recent echo and no report of valvular heart disease per patient. Check 2-D echo. 3. Essential hypertension on home verapamil and Cardura. Verapamil was discontinued and appears to be stable. 4. History of heart catheterization previously 2 years ago however no significant coronary artery disease per patient. 5. Obstructive sleep apnea compliant with CPAP 6. Lung mass previously biopsied and appears stable on chest x-ray 7. Hyperlipidemia on home pravastatin PLAN Patient presented after trauma from falling off of a horse. Suspect episodes of lightheadedness and syncope mainly related to combination of vasovagal response from pain, mild dehydration and hematoma. We will check 2-D echo however to rule out any significant effusion or valvular heart disease. He denies any chest trauma however we will check 2-D echo to further evaluate. Patient is feeling much better and has been able to walk the halls without difficulty and if echo is unrevealing, patient may be discharged home with outpatient follow- up. Past Medical History Past Medical History: Asthma, Coronary Artery Disease (CAD), GERD/Reflux, Hyperlipidemia, Hypertension, Prostate Disorder, Sleep Apnea/CPAP/BIPAP Additional Past Medical History / Comment(s): Hx diverticulitis History of Any Multi-Drug Resistant Organisms: None Reported Past Surgical History: Appendectomy, Bariatric Surgery, Bowel Resection, Heart Catheterization, Orthopedic Surgery Additional Past Surgical History / Comment(s): repair detached retina, L carpal tunnel sx, sinus sx 03/10, L cataract sleeve gastrectomy 10-10-17 Past Anesthesia/Blood Transfusion Reactions: No Reported Reaction Past Psychological History: No Psychological Hx Reported Smoking Status: Former smoker Past Alcohol Use History: Occasional Past Drug Use History: None Reported - Past Family History Mother Additional Family Medical History / Comment(s): hx. of blood clot somewhere Sister(s) Family Medical History: Cancer Additional Family Medical History / Comment(s): breast Medications and Allergies Home Medications Medication Instructions Recorded Confirmed Type Doxazosin Mesylate [Cardura] 8 mg PO HS 02/10/17 03/23/20 History Finasteride [Proscar] 5 mg PO DAILY 02/10/17 03/23/20 History Losartan/Hydrochlorothiazide 1 tab PO QAM 02/10/17 03/23/20 History [Hyzaar 100-25 Tablet] Sertraline [Zoloft] 150 mg PO QAM 02/10/17 03/23/20 History Verapamil HCl [Verapamil ER] 240 mg PO QAM 02/10/17 03/23/20 History Acetaminophen [Tylenol Arthritis] 1,300 mg PO BID 03/23/20 03/23/20 History Aspirin EC [Ecotrin Low Dose] 81 mg PO DAILY 03/23/20 03/23/20 History Calcium Chew 2 tab PO DAILY 03/23/20 03/23/20 History Etodolac [Lodine] 400 mg PO BID 03/23/20 03/23/20 History Ferrous Sulfate [Feosol] 975 mg PO HS 03/23/20 03/23/20 History L.acidoph,Paracasei, B.lactis 1 cap PO DAILY 08/30/20 08/30/20 History [Probiotic] Montelukast [Singulair] 10 mg PO HS 03/23/20 03/23/20 History Multivitamins, Thera [Multivitamin 1 tab PO DAILY 03/23/20 03/23/20 History (formulary)] Pravastatin Sodium [Pravachol] 40 mg PO HS 03/23/20 03/23/20 History Allergies Allergy/AdvReac Type Severity Reaction Status Date / Time No Known Allergies Allergy Verified 03/23/20 09:21 Physical Exam Vitals: Vital Signs Temp Pulse Resp BP Pulse Ox 03/24/20 09:00 98.1 F 84 16 121/73 97 03/24/20 04:50 99 F 78 17 135/74 97 03/23/20 19:45 98.9 F 76 18 118/71 96 03/23/20 14:49 98.0 F 70 16 115/68 96 Intake and Output 03/23/20 03/24/20 03/24/20 22:59 06:59 14:59 Intake Total 900 Balance 900 Intake: IV 900 Sodium Chloride 0.9% 1, 900 000 ml @ 100 mls/hr IV . Q10H [facility] Rx#:[id number] Other: Voiding Method Urinal Toilet Toilet Urinal Urinal # Voids 0 3 Results 03/24/20 05:35 03/24/20 05:35 CBC 03/23/20 03/24/20 Range/Units 12:28 05:35 WBC 11.0 H 7.6 (3.8-10.6) k/uL RBC 3.88 L 3.56 L (4.30-5.90) m/uL Hgb 11.8 L 11.0 L (13.0-17.5) gm/dL Hct 36.8 L 34.2 L (39.0-53.0) % Plt Count 154 133 L (150-450) k/uL Comprehensive Metabolic Panel 03/24/20 Range/Units 05:35 Sodium 137 (137-145) mmol/L Potassium 4.1 (3.5-5.1) mmol/L Chloride 108 H (98-107) mmol/L Carbon Dioxide 23 (22-30) mmol/L BUN 22 H (9-20) mg/dL Creatinine 0.70 (0.66-1.25) mg/dL Glucose 90 (74-99) mg/dL Calcium 8.0 L (8.4-10.2) mg/dL Current Medications Generic Name Dose Route Start Last Admin Trade Name Freq PRN Reason Stop Dose Admin Acetaminophen 650 mg 03/23/20 16:24 Tylenol Tab PO Q6HR PRN Mild Pain or Fever > 100.5 Al Hydroxide/Mg Hydroxide 15 ml 03/23/20 16:24 Maalox PO Q6HR PRN Indigestion Alprazolam 0.25 mg 03/23/20 16:24 Xanax PO Q6HR PRN Anxiety Atropine Sulfate 1 mg 03/23/20 00:48 Atropine IV ONCE PRN Bradycardia Calcium Carbonate/Glycine 1,000 mg 03/23/20 16:24 Tums PO Q4HR PRN Dyspepsia Doxazosin Mesylate 8 mg 03/23/20 21:00 03/23/20 20:08 Cardura PO 8 mg HS [facility] Administration Etodolac 400 mg 03/23/20 11:00 03/24/20 08:15 Lodine PO 400 mg BID [facility] Administration Ferrous Sulfate 325 mg 03/23/20 22:00 03/24/20 08:16 Feosol PO 325 mg TID [facility] Administration Finasteride 5 mg 03/23/20 11:00 03/24/20 08:16 Proscar PO 5 mg DAILY [facility] Administration Hydromorphone HCl 1 mg 03/23/20 00:34 03/24/20 08:18 Dilaudid IVP 1 mg Q3HR PRN Administration Pain Sodium Chloride 1,000 mls @ 100 mls/hr 03/22/20 23:45 03/24/20 05:49 Saline 0.9% IV 100 mls/hr .Q10H [facility] Administration Lactulose 20 gm 03/23/20 16:24 Cephulac PO DAILY PRN Constipation Magnesium Hydroxide 2,400 mg 03/23/20 16:24 Milk Of Magnesia PO DAILY PRN Constipation Melatonin 3 mg 03/23/20 16:24 Melatonin PO HS PRN Insomnia Montelukast Sodium 10 mg 03/23/20 21:00 03/23/20 20:08 Singulair PO 10 mg HS [facility] Administration Naloxone HCl 0.2 mg 03/22/20 23:55 Narcan IV Q2M PRN Opioid Reversal Ondansetron HCl 4 mg 03/23/20 16:24 Zofran IVP Q8HR PRN Nausea And Vomiting Pravastatin Sodium 40 mg 03/23/20 21:00 03/23/20 20:11 Pravachol PO 40 mg HS [facility] Administration Sertraline HCl 150 mg 03/23/20 11:00 03/24/20 08:16 Zoloft PO 150 mg QAM [facility] Administration Intake and Output 03/23/20 03/24/20 03/24/20 22:59 06:59 14:59 Intake Total 900 Balance 900 Intake: IV 900 Sodium Chloride 0.9% 1, 900 000 ml @ 100 mls/hr IV . Q10H [facility] Rx#:[id number] Other: Voiding Method Urinal Toilet Toilet Urinal Urinal # Voids 0 3 03/24/20 05:35 03/24/20 05:35
--- NOTE | 2020-03-24 12:19 | ECHOF ---
Referral Reason:chest pain, syncope MEASUREMENTS -------- HEIGHT: 180.3 cm WEIGHT: 113.4 kg BP: 121/73 RVIDd: 3.7 cm (< 3.3) IVSd: 1.2 cm (0.6 - 1.1) LVIDd: 4.9 cm (3.9 - 5.3) LVPWd: 1.2 cm (0.6 - 1.1) IVSs: 1.8 cm LVIDs: 3.5 cm LVPWs: 1.5 cm LA Diam: 3.7 cm (2.7 - 3.8) LAESV Index (A-L): 36.74 ml/m Ao Diam: 3.7 cm (2.0 - 3.7) AV Cusp: 1.9 cm (1.5 - 2.6) MV EXCURSION: 17.007 mm (> 18.000) MV EF SLOPE: 67 mm/s (70 - 150) EPSS: 0.8 cm MV E Sanket: 1.19 m/s MV DecT: 262 ms MV A Sanket: 1.36 m/s MV E/A Ratio: 0.88 AV maxP.93 mmHg AV meanP.57 mmHg RAP: 5.00 mmHg RVSP: 29.63 mmHg FINDINGS -------- Sinus rhythm. This was a technically good study. The left ventricular size is normal. There is borderline concentric left ventricular hypertrophy. Overall left ventricular systolic function is normal with, an EF between 60 - 65 %. The right ventricle is mildly enlarged. LA is moderately dilated 34-39 ml/m2 The right atrium is normal in size. Interatrial and interventricular septum intact. There is mild to moderate aortic valve sclerosis. There is mild aortic stenosis present. Peak/brenda n gradient across the Aortic Valve is 23.93mmHg / 15.57mmHg. Can't exclude possible Bicuspid Aov. Mild mitral annular calcification present. Mild tricuspid regurgitation present. Right ventricular systolic pressure is normal at < 35 mmHg. There is no pulmonic regurgitation present. The aortic root size is normal. Normal inferior vena cava with normal inspiratory collapse consistent with estimated right atrial pre ssure of 5 mmHg. There is no pericardial effusion. CONCLUSIONS -------- 1. The left ventricular size is normal. 2. There is borderline concentric left ventricular hypertrophy. 3. Overall left ventricular systolic function is normal with, an EF between 60 - 65 %. 4. The right ventricle is mildly enlarged. 5. LA is moderately dilated 34-39 ml/m2 6. There is mild to moderate aortic valve sclerosis. 7. There is mild aortic stenosis present. 8. Peak/mean gradient across the Aortic Valve is 23.93mmHg / 15.57mmHg. 9. Mild mitral annular calcification present. 10. Mild tricuspid regurgitation present. 11. There is no pericardial effusion. LEAD TINNER: Angélica Read RDCS
--- NOTE | 2020-03-24 21:38 | P.DS ---
Providers Date of admission: 03/23/20 00:03 Expected date of discharge: 03/24/20 Attending physician: Maykel Reece Consults: 03/22/20 23:58 Consult Physician Urgent Consulting Provider: Donald Medellin Consult Reason/Comments: fall from horse, right buttock hematoma Do you want consulting provider notified?: Already Contacted 03/23/20 10:55 Consult Physician Routine Consulting Provider: Che Palmer Consult Reason/Comments: syncope-bradycardia Do you want consulting provider notified?: Yes Primary care physician: Cricket Keene [facility] Course: Chief Complaint: Passed out History of presenting complaint: This is a very pleasant [address] Manning.. Chronic stable medical conditions include hypertension, hyperlipidemia, obstructive sleep apnea uses CPAP machine, diverticulosis. Patient's had sleep gastrectomy in the past and as lost over 80 pounds. Since then asthma has been under control with no medications, GERD symptoms have resolved. Yesterday the patient [place]. The right ear group of people. One of the horses apparently got upset and several horses started running around. Given patient's horse took off and started running. At some point horse turned to one side and patient was thrown out of the other side landing on his right buttock. Patient was jolted but never passed out. No head injury. This was around 5 PM. Patient has been out there since 2 PM. Late in the evening they're planning to go out for dinner. Patient was sitting down in the barn. He got up and felt nauseated felt dizzy decided to sit down the patient passed out for about 2 minutes. Patient had his lunch before 2 PM and had not really eaten since this time. She'll only taken little fluids. Patient's found to be hypotensive by the EMS. Patient had an episode of near-syncope in the ER. No arrhythmia was detected. No chest pain or palpitation. Patient has a good-sized bruise on the right buttock. Patient's son at the bedside. Patient has no neurological symptoms. No change in vision or dizziness, lightheadedness. No focal weakness. No bleeding from the ER of the nose. Patient's heart rate normal runs in the 70s and the blood pressure always runs around 1 20 x 80. Admitted with-hypotension felt to be from dehydration. And blood loss anemia from hematoma. verapamil was discontinued. Patient was seen by general surgery and cartilage or. Cleared by both. Today-patient doing well. Blood pressures up. Discussed with the patient. Continue to hold off verapamil. Check blood pressure daily. May be resumed as an outpatient if needed. Discussion and discharge planning more than 35 minutes Consultation: Dr. Medellin from general surgery Dr. Andino from cardiology Physical examination: VITAL SIGNS: 98.1, 84, 16, 121/73, 97% room air GENERAL: Sitting up in a chair, comfortable. EYES: Pupils equal. Conjunctiva normal. NECK: JVD not raised; masses not palpable. HEART: First and second heart sounds are normal; no edema. LUNGS: Respiratory rate normal; clear to auscultation. EXTREMITIES: Patient has a bruising around the right buttock extending over the right hip . Mild tenderness. ABDOMEN: Soft, nontender, liver spleen not palpable, no masses palpable. PSYCH: Alert and oriented x3; mood and affect normal. INVESTIGATIONS, reviewed in the clinical context: White count 7.6 hemoglobin 11 potassium 4.1 creatinine 0.70 Previous testing White count 19 hemoglobin 12.5 platelets 159 potassium 3.5 creatinine 1.2 lactic acid 2.3 CPK 200 troponin I 0.014, 0.024 serum alcohol less than 10 EKG tracing normal sinus rhythm, prolonged QT interval Chest x-ray film personally reviewed by me-borderline cardiomegaly. Lung gerard appear to be clear. Per report 2.5 cm mass present from 2017. Computed tomography scan of the abdomen pelvis-1.8 cm rounded dense nodule in the lateral aspect of the right middle lobe, multiple diverticula. Evidence of extensive subacute is a density on the right side and a hematoma 10 cm x 3.5 cm. Spinal stenosis Assessment: -Hypotension, resulting from patient being dehydrated with poor fluid intake from 2:00 to the evening and also patient was riding his horse for over 3 hours and ambient temperature was high. Also loss of blood in the hematoma. -Right buttock and subcutaneous hematoma secondary to blunt trauma from fall -Acute blood loss anemia secondary to hematoma -Obesity BMI 34.9 -History of sleep gastrectomy -Colonic diverticulosis asymptomatic -Lactic acidosis type II likely from hypotension. No clinical evidence of infection. -Reactive leukocytosis -Essential hypertension -Hyperlipidemia -Obstructive sleep apnea uses CPAP -Intermittent asthma controlled -BPH -Syncope likely from hypotension. Disposition: Home Patient Condition at Discharge: Stable Plan - Discharge Summary Discharge Rx Participant: No New Discharge Prescriptions: New Famotidine [Pepcid] 20 mg PO BID #60 tablet Continue Doxazosin Mesylate [Cardura] 8 mg PO HS Sertraline [Zoloft] 150 mg PO QAM Losartan/Hydrochlorothiazide [Hyzaar 100-25 Tablet] 1 tab PO QAM Finasteride [Proscar] 5 mg PO DAILY Etodolac [Lodine] 400 mg PO BID Montelukast [Singulair] 10 mg PO HS Ferrous Sulfate [Iron (65 MG Elemental)] 975 mg PO HS Calcium Chew 2 tab PO DAILY Pravastatin Sodium [Pravachol] 40 mg PO HS Multivitamins, Thera [Multivitamin (formulary)] 1 tab PO DAILY L.acidoph,Paracasei, B.lactis [Probiotic] 1 cap PO DAILY Aspirin EC [Ecotrin Low Dose] 81 mg PO DAILY Acetaminophen [Tylenol Arthritis] 1,300 mg PO BID Discontinued Verapamil HCl [Verapamil ER] 240 mg PO QAM Discharge Medication List Doxazosin Mesylate [Cardura] 8 mg PO HS 02/10/17 [History] Finasteride [Proscar] 5 mg PO DAILY 02/10/17 [History] Losartan/Hydrochlorothiazide [Hyzaar 100-25 Tablet] 1 tab PO QAM 02/10/17 [History] Sertraline [Zoloft] 150 mg PO QAM 02/10/17 [History] Acetaminophen [Tylenol Arthritis] 1,300 mg PO BID 03/23/20 [History] Aspirin EC [Ecotrin Low Dose] 81 mg PO DAILY 03/23/20 [History] Calcium Chew 2 tab PO DAILY 03/23/20 [History] Etodolac [Lodine] 400 mg PO BID 03/23/20 [History] Ferrous Sulfate [Iron (65 MG Elemental)] 975 mg PO HS 03/23/20 [History] L.acidoph,Paracasei, B.lactis [Probiotic] 1 cap PO DAILY 03/23/20 [History] Montelukast [Singulair] 10 mg PO HS 03/23/20 [History] Multivitamins, Thera [Multivitamin (formulary)] 1 tab PO DAILY 03/23/20 [History] Pravastatin Sodium [Pravachol] 40 mg PO HS 03/23/20 [History] Famotidine [Pepcid] 20 mg PO BID #60 tablet 03/24/20 [Rx] Follow up Appointment(s)/Referral(s): Narinder Andino DO [STAFF PHYSICIAN] - 2 Weeks ([facility] will call you with an appointment.) Cricket Manning DO [Primary Care Provider] - 3 Days (The office will call you with an appointment.) Patient Instructions/Handouts: Syncope (GEN) Activity/Diet/Wound Care/Special Instructions: dc when ok with cardiology daily am BP log to keep
== END 2020-03-24 13:48 ==
LOC: EC 21:35 → 3NCARDOBS 03-23 00:03
PROVIDERS: ADMIT Hospitalist; ATTEND Hospitalist
DX: E86.0 Dehydration (principal); I49.3 Ventricular premature depolarization; I95.9 Hypotension, unspecified; S70.01XA Contusion of right hip, initial encounter; S00.81XA Abrasion of other part of head, initial encounter; V80.010A Animal-rider injured by fall from or being thrown from horse in noncollision accident, initial encounter; Y93.52 Activity, horseback riding; D50.0 Iron deficiency anemia secondary to blood loss (chronic); R55 Syncope and collapse; D72.829 Elevated white blood cell count, unspecified; E87.2 Acidosis; K57.30 Diverticulosis of large intestine without perforation or abscess without bleeding; E66.9 Obesity, unspecified; Z68.34 Body mass index [BMI] 34.0-34.9, adult; J45.20 Mild intermittent asthma, uncomplicated; I25.10 Atherosclerotic heart disease of native coronary artery without angina pectoris; I10 Essential (primary) hypertension; K21.9 Gastro-esophageal reflux disease without esophagitis; E78.5 Hyperlipidemia, unspecified; N40.0 Benign prostatic hyperplasia without lower urinary tract symptoms; G47.33 Obstructive sleep apnea (adult) (pediatric); Z99.89 Dependence on other enabling machines and devices; Z87.19 Personal history of other diseases of the digestive system; Z98.42 Cataract extraction status, left eye; Z98.84 Bariatric surgery status; Z90.49 Acquired absence of other specified parts of digestive tract; Z98.890 Other specified postprocedural states; Z87.891 Personal history of nicotine dependence; Z82.49 Family history of ischemic heart disease and other diseases of the circulatory system; Z80.3 Family history of malignant neoplasm of breast; Z79.1 Long term (current) use of non-steroidal anti-inflammatories (NSAID); Z79.82 Long term (current) use of aspirin; Z79.899 Other long term (current) drug therapy
CPT/HCPCS: 96361 ×3; 96375; 96376 ×2; 96374; 99285; 36415; 93005; 93306; 86900; 86901; 80053; 80048; 82550; 83605 ×2; 84484 ×2; 85025 ×3; 85610; 85730; 86850; 81003; 80320; 71046; 72125; 70450; 74177; G0378 ×2; S0138 ×2; J0461; J1170 ×2; Q9967

== ENCOUNTER → 2020-10-14 | Outpatient (CLI) | payer BC ==
[2020-10-14 14:08] LABS: Appearance,Urine Clear (Clear); Bilirubin,Urine 1+ (Negative); Blood,Urine Negative (Negative); Color,Urine Light Yellow; Glucose,Urine (UA) Negative (Negative); Ketones,Urine Negative (Negative); Leukocyte Esterase,Urine Negative (Negative); Nitrite,Urine Negative (Negative); PH, Urine 6.5 (5.0-8.0); Protein,Urine Negative (Negative); Specific Gravity,Urine 1.008 (1.001-1.035); Urobilinogen,Urine <2.0 mg/dL (<2.0)
[2020-10-14 14:20] LABS: HCT 44.4 % (39.0-53.0); HGB 15.3 gm/dL (13.0-17.5); MCHC 34.3 g/dL (31.0-37.0); MCV 93.1 fL (80.0-100.0); Mean Platelet Volume 9.4; Platelet Count 165 k/uL (150-450); RBC 4.77 m/uL (4.30-5.90); RDW 12.1 % (11.5-15.5); WBC 7.7 k/uL (3.8-10.6)
[2020-10-14 14:29] LABS: ALT 23 U/L (4-49); AST 30 U/L (17-59); African American GFR (CKD) >90 (>60 ml/min/1.73 sqM); Albumin 4.7 g/dL (3.5-5.0); Alkaline Phosphatase 77 U/L (38-126); Anion Gap 9 mmol/L; Blood Urea Nitrogen 21 mg/dL (9-20); Calcium 10.3 mg/dL (8.4-10.2); Carbon Dioxide 29 mmol/L (22-30); Chloride 102 mmol/L (98-107); Glucose 97 mg/dL (74-99); Non-African American GFR(CKD) >90 (>60 ml/min/1.73 sqM); Potassium 4.4 mmol/L (3.5-5.1); Sodium 140 mmol/L (137-145); Total Bilirubin 0.5 mg/dL (0.2-1.3); Total Protein 7.4 g/dL (6.3-8.2)
[2020-10-14 15:04] LABS: INR 0.9 (<1.2); Partial Thromboplastin Time 22.3 sec (22.0-30.0)
== END | disposition home or self-care (01) ==
LOC: LABPAT 12:49
PROVIDERS: ATTEND Orthopaedic Surgery
DX: Z01.812 Encounter for preprocedural laboratory examination (principal)
CPT/HCPCS: 36415; 80053; 81003; 85027; 85610; 85730; 87070

== ENCOUNTER 2020-10-21 07:00 | Day surgery (SDC) | payer BC ==
[2020-10-15 14:55] VITALS: BMI 36.2
[~2020-10-21 07:00] MED LIST changes: +ACETAMINOPHEN TAB 500 MG TAB PO PRN; -ALVIMOPAN 12 MG CAPSULE PO ONE; -CHLORHEXIDINE GLUCONATE 15 ML CUP MUCOUS MEM ONE; -DEXAMETHASONE SOD PHOSPHATE 10 MG/ML 1 ML VIAL IV ONE; +DEXAMETHASONE SOD PHOSPHATE 4 MG/ML 1 ML VIAL IV ONE; -ENOXAPARIN 40 MG/0.4 ML SYRINGE SQ STA; +GABAPENTIN 300 MG CAP PO PRN; +HYDROmorphone 0.5 MG/0.5 ML SYRINGE IVP PRN; +LACTATED RINGERS 1,000 ML IV SCH; +LIDOCAINE 1% (10MG/ML) FOR IV START INTRADERMA PRN; +MELOXICAM 7.5 MG TAB PO PRN; -PANTOPRAZOLE 40 MG/10 ML VIAL IV STA; +ROPIVACAINE 246.25 MG, EPINEPHrine 0.5 MG, KETOROLAC 30 MG, cloNIDine HCL/PF 80 MCG, WA... MISCELLANE PRN; -SCOPOLAMINE 1.5MG/72HR PATCH TRANSDERM ONE; +TRANEXAMIC ACID 1,000 MG in SODIUM CHLORIDE 0.9% 100 ML IVPB PRN
[2020-10-21] MEDS ORDERED: MIDAZOLAM 2 MG/2 ML VIAL IVP ONE (07:46)
[2020-10-21] MEDS ORDERED: fentaNYL (PF) 50 MCG/ML 2 ML AMP IVP ONE (07:48)
[2020-10-21] MEDS ORDERED: ROPIVACAINE 0.2%-NS ON-Q PUMP 1,090 MG, EMPTY PAIN BALL 1 EACH MISCELLANE PRN (08:15)
--- NOTE | 2020-10-21 08:15 | P.ANPRN ---
Procedure Note - Anesthesia - Nerve Block Performed Right Adductor Canal Infusion Time Out Performed: Yes (0745 AM) Date of Procedure: 10/21/20 Procedure Start Time: 07:45 Procedure Stop Time: 07:57 Location of Patient: PreOp Indication: Requested by Surgeon Specifically requested for management of pain by : Simon Torrez Sedation Type: Sedate with meaningful contact maintained Preparation: Sterile Prep, Sterile Dressing Position: Supine Catheter: Indwelling Needle Types: Pajunk Needle Gauge: 18 Ultrasound used to visualize needle placement: Yes Ultrasound used to observe medication spread: Yes Injectate: 0.5% Ropivacaine (see comment for volume) (30 cc) Blood Aspirated: No Pain Paresthesia on Injection Noted: No Resistance on Injection: High Image Stored and Saved: Yes Events: Uneventful and Well Tolerated
[2020-10-21] MEDS ORDERED: SUCCINYLCHOLINE CHLORIDE 100 MG/5 ML SYR IV ONE (09:08)
[2020-10-21] MEDS ORDERED: SODIUM CHLORIDE 0.9% 100 ML BAG ONE (09:08)
[2020-10-21] MEDS ORDERED: GLYCOPYRROLATE 0.2 MG/ML 2 ML VIAL ONE (09:08)
[2020-10-21] MEDS ORDERED: fentaNYL (PF) 50 MCG/ML 2 ML AMP ONE (09:08)
[2020-10-21] MEDS ORDERED: NEOSTIGMINE 1 MG/ML 10 ML VIAL ONE (09:08)
[2020-10-21] MEDS ORDERED: ROCURONIUM 10 MG/ML (5 ML VIAL) IV ONE (09:08)
[2020-10-21] MEDS ORDERED: LIDOCAINE 1% INJ 10MG/ML (20 ML MDV) ONE (09:08)
[2020-10-21] MEDS ORDERED: PROPOFOL 10 MG/ML 20 ML VIAL IV ONE (09:08)
[2020-10-21] MEDS ORDERED: MIDAZOLAM 2 MG/2 ML VIAL ONE (09:08)
[2020-10-21] MEDS ORDERED: HYDROmorphone (PF) 1 MG/ML ONE (09:08)
[2020-10-21] MEDS ORDERED: TRANEXAMIC ACID 1,000 MG/10 ML VIAL ONE (09:08)
[2020-10-21] MEDS ORDERED: HYDROmorphone 0.2 MG/1 ML SYRINGE IVP PRN (09:09)
[2020-10-21] MEDS ORDERED: ONDANSETRON 4 MG/2 ML VIAL IVP PRN (09:09)
[2020-10-21] MEDS ORDERED: NALOXONE 0.4 MG/ML 1 ML VIAL IV PRN (09:09)
[2020-10-21] MEDS ORDERED: HYDROmorphone 0.5 MG/0.5 ML SYRINGE IVP PRN ×2 (09:09)
[2020-10-21] MEDS ORDERED: HYDROcodone/APAP 7.5-325MG 1 EACH TAB PO PRN ×2 (09:11)
[2020-10-21] MEDS ORDERED: SODIUM CHLORIDE 0.9% 1,000 ML IV SCH (09:15)
[2020-10-21] MEDS ORDERED: ceFAZolin 3,000 MG in SODIUM CHLORIDE 0.9% IRRIGATIO 3,000 ML IRRIGATION ONE (09:48)
--- NOTE | 2020-10-21 10:33 | P.OP ---
Date of Procedure: 10/21/20 Preoperative Diagnosis: severe osteoarthritis right knee Postoperative Diagnosis: severe osteoarthritis right knee Procedure(s) Performed: right total knee arthroplasty Implants: [employer]hew Journey II CR Oxinium cruciate retaining femoral component size 6, right [employer] Journey nonporous tibial baseplate size 6, right [employer] Journey II, XLPE Deep Dished articular insert, size 11 mm, Size 5-6, right [employer] Journey Charline II resurfacing patellar component, oval, 35 mm All components were cemented using Palacos R bone cement The articulation is Oxinium on polyethylene Anesthesia: GREGORY Surgeon: Simon Torrez Bottle Cleaner #1: Katerina Steele Estimated Blood Loss (ml): 50 Pathology: other (bone and cartilage) Condition: stable Disposition: PACU Indications for Procedure: After failure of conservative treatment we discussed the surgical and nonsurgical treatment options at length. Patient wishes to proceed with a total knee arthroplasty. Complications specific to this procedure were discussed at length, including but not limited to infection, bleeding, stiffness, and nerve injury. Covid-19 was also discussed at length with the patient, and they are aware of the current policies and procedures. The patient was given the option of delaying surgery, but they elect to proceed knowing these risks. Patient is aware of all these complications and informed consent was obtained Operative Findings: the operative findings are consistent with severe osteoarthritis of the right knee Description of Procedure: Patient was seen in the preoperative area and the consent was reviewed and the operative site was marked with a skin marker. The patient verified the procedure and the operative site. An adductor canal pain catheter was placed by anesthesia in the preoperative area. The patient was then brought to the operating room and given preoperative antibiotics intravenously. A gram of transexamic acid was given intravenously. A general anesthetic was administered by the anesthesia department. A tourniquet was placed on the upper thigh and the lower extremity was prepped with chlorhexidine and draped in usual sterile fashion. A universal timeout was then performed which confirmed the patient's name, surgical site, ALLERGIES, and consent. The lower extremity was then exsanguinated and tourniquet was inflated to 250 mmHg. A standard anterior midline approach to the knee was performed. The skin and subcutaneous tissue were sharply dissected down to the patellar tendon. A medial parapatellar arthrotomy was then performed. The knee was then extended, the patellar was everted, and the knee was again flexed. The infra-patellar fat pad was removed in order to enhance exposure. The anterior horns of both menisci were excised, and a release was performed to the posterior medial aspect of the knee. On gross visual inspection, there was complete loss of articular cartilage in the medial and patellofemoral joint spaces. There was also significant cartilage damage in the lateral compartment. There were multiple periarticular osteophytes globally about the knee which were then removed with a Ronguer. The femoral canal was then opened with the 9.5 mm intramedullary drill. The 8 mm intramedullary je was then inserted into the femoral canal with the distal femoral cutting guide set for 5 of valgus. The distal femoral cutting block was then pinned in place. The intramedullary je was then removed, and the distal femur was then cut. The cutting block was then removed and the cut was checked for symmetry. The resected bone was then measured to confirm the appropriate distal femoral resection. Next, the sizing guide was then placed and set for 3 external rotation based off of the epicondylar axis and Whitesides line. Pins were then placed and the drill holes, and the femur was sized with the sizing stylus. The pins were then removed, and the sizing guide was then removed. The spikes of the femoral block was then placed into the predrilled holes, and malleted into place. Two 45 mm pins were then placed into the fixation holes on the cutting block. An kole wing was then used to ensure there would be no notching with the anterior cut. The anterior condyles were cut without notching. The anterior chord cut was then performed, followed by the posterior cut, posterior chamfer cut, and the anterior chamfer cut. The collateral ligaments were protected during the entire process. The cutting block was then removed. Any remaining bone and osteophytes were removed from the femur with a Rominger. The femoral canal was plugged with autologous bone. Attention was then directed to the tibia. The remaining ACL was removed with a Ronguer, and the tibia was then gently subluxed forward with a large bent knee retractor. Any remaining menisci were excised. The posterior lateral corner was cauterized in order to coagulate the lateral geniculate artery. The extra medullary tibial cutting guide was then placed, set for the appropriate rotation, slope, and depth of resection. The proximal tibia cutting guide was then pinned in place. Proximal tibia was then cut and sized. The femoral trial was placed. A narrow saw blade was then used to remove the anterior intracondylar femoral bone. The CR notch trial was then placed. The tibial trial was placed with the appropriate-sized insert. The knee was able to fully extend and flex to 130 and was stable throughout all range of motion. The knee was then extended and the patella was everted. Patella was then measured, and then using an osteotomy guide, the patella was cut at the appropriate level. The patella was then measured and drilled and the patella trial was then placed. The knee was then taken through range of motion with the patella trial and the patella tracked normally using the no thumbs technique.. The knee was then extended patella trial was then removed and the patella was everted. Knee was then flexed and lug holes were drilled through the femoral trial and the femoral trial was then removed. The tibial was then re-exposed, and the tibial broach guide was then pinned in place after it was set for the appropriate rotation to allow for the most coverage without overhang. The tibia was then reamed and broached. The cut surfaces of bone were then irrigated with pulsatile lavage. The posterior structures were injected with the ropivacaine solution. The knee was also irrigated with Irrisept solution. The components were then opened, the cement was mixed, and the components were then cemented in place. The cement was allowed to harden with the knee in full extension. While the cement was hardening, the remaining soft tissues were then injected with a ropivacaine solution, which consisted of 246.25 mg of ropivacaine, 0.5 mg of epinephrine, 30 mg of Toradol, 80 g of clonidine, and 48.45 mL of sterile water, for a total of 100 mL of fluid injected. After the cemented hardened. The tourniquet was released, and hemostasis was obtained. A second gram of transexamic acid was given intravenously. The knee was again irrigated. The knee was again taken th rough range of motion and found to be stable throughout all range of motion of 0-130, and the patella tracked normally. The fascia was then closed with 0 Vicryl followed by #2 strata fix suture. The subcutaneous tissue was closed with 3-0 Vicryl and 3-0 strata fix. Exofin glue was used for the skin and placed with the knee in flexion. After the glue had dried, and Optafoam silver impregnated dressing was applied. The patient was then transferred to recovery room in stable condition. The orthotics prosthetics assistant ALDO Hodgson was required due the complexity surgery and the need for a skilled registered nurse surgical services. She assisted in positioning, draping, retraction, and closure of the wound.
[2020-10-21 11:12] VITALS: RESP 16; TEMP 98.2
[2020-10-21] MEDS ORDERED: MEPERIDINE 50 MG/ML SYRINGE IVP ONE (11:19)
--- NOTE | 2020-10-21 12:10 | XR ---
EXAMINATION TYPE: XR knee limited RT DATE OF EXAM: 10/21/2020 COMPARISON: NONE HISTORY: 65-year-old male evaluation for postoperative abnormality and alignment TECHNIQUE: 2 views FINDINGS: Images show placement of right total knee arthroplasty. Both distal femoral and proximal tibial compo nents of the prosthesis are well seated without prosthetic fracture. Alignment grossly anatomic. Ante rior soft tissue swelling along with soft tissue air as well as intra-articular air related to recent operation. IMPRESSION: Uncomplicated postoperative appearance right total knee arthroplasty.
[2020-10-21] MEDS ORDERED: HYDROcodone/APAP 7.5-325MG 1 EACH TAB PO ONE ×2 (12:21→13:50)
[2020-10-21 15:12] VITALS: BP 117/68; PULSE 66
[2020-10-21] MEDS ORDERED: ceFAZolin 3 GM in SODIUM CHLORIDE 0.9% 100 ML IVPB SCH (16:00)
== END 2020-10-21 16:00 | disposition home health service (06) ==
LOC: OR 07:00
PROVIDERS: ATTEND Orthopaedic Surgery
DX: M17.11 Unilateral primary osteoarthritis, right knee (principal); M25.761 Osteophyte, right knee; M21.161 Varus deformity, not elsewhere classified, right knee; I10 Essential (primary) hypertension; E78.5 Hyperlipidemia, unspecified; F32.9 Major depressive disorder, single episode, unspecified; I25.10 Atherosclerotic heart disease of native coronary artery without angina pectoris; G47.33 Obstructive sleep apnea (adult) (pediatric); E66.01 Morbid (severe) obesity due to excess calories; K57.32 Diverticulitis of large intestine without perforation or abscess without bleeding; J34.3 Hypertrophy of nasal turbinates; G47.00 Insomnia, unspecified; J45.909 Unspecified asthma, uncomplicated; M51.36 Other intervertebral disc degeneration, lumbar region; N40.0 Benign prostatic hyperplasia without lower urinary tract symptoms; R97.20 Elevated prostate specific antigen [PSA]; J34.89 Other specified disorders of nose and nasal sinuses; R91.1 Solitary pulmonary nodule; R05 Cough; K52.9 Noninfective gastroenteritis and colitis, unspecified; E78.00 Pure hypercholesterolemia, unspecified; K21.9 Gastro-esophageal reflux disease without esophagitis; I49.3 Ventricular premature depolarization; I47.1 Supraventricular tachycardia; I35.0 Nonrheumatic aortic (valve) stenosis; F17.210 Nicotine dependence, cigarettes, uncomplicated; Z79.899 Other long term (current) drug therapy; Z79.82 Long term (current) use of aspirin; Z79.891 Long term (current) use of opiate analgesic; Z97.3 Presence of spectacles and contact lenses; Z90.49 Acquired absence of other specified parts of digestive tract; Z98.84 Bariatric surgery status; Z79.51 Long term (current) use of inhaled steroids; Z79.1 Long term (current) use of non-steroidal anti-inflammatories (NSAID); Z87.19 Personal history of other diseases of the digestive system; Z90.89 Acquired absence of other organs; Z98.890 Other specified postprocedural states; Z98.42 Cataract extraction status, left eye; Z91.09 Other allergy status, other than to drugs and biological substances; Z68.35 Body mass index [BMI] 35.0-35.9, adult; Z99.89 Dependence on other enabling machines and devices; Z82.61 Family history of arthritis; Z84.89 Family history of other specified conditions; Z82.49 Family history of ischemic heart disease and other diseases of the circulatory system
CPT/HCPCS: 97110; 97161; 64448; 76942; 88300; 73560; 27447; C1713; C1776; J2250; J0171; J1100; J2710; J2175; J0690 ×2; J2405; J2001; J3010; J1885; J1170; J2795 ×2; J0330; J2704; J0735

== ENCOUNTER → 2024-10-03 | Outpatient (CLI) | payer BC ==
[2024-10-03 13:42] VITALS: BP 125/79; PULSE 67; RESP 16; TEMP 97.6; BMI 40.1
--- NOTE | 2024-10-03 14:44 | P.HPBAR ---
Bariatric H&P - History & Physicial H&P Date: 10/03/24 History & Physicial: Visit/CC: f/u sleeve Patient initial contact: Initial weight: 138.062 kg Initial weight in pounds: 304.37 Height: 5 ft 9 in Initial BMI: 44.9 Last weight: Current weight: 123.377 kg Current weight in pounds: 272.00 Current BMI: 40.1 Traer body weight (based on NIH guidelines): 72.72 kg Excess body weight loss: 22.4% The patient is a 69 year-old M who presents for Bariatric Assessment. Highest 306 pounds. Gained 30 pounds. He has chronic diarrhea. Has asthma. Has been lost to follow-up. Gallbladder present. Needs HIDA/gallbladder. He has heart doctor. Dg DAVIS. Last colonoscopy for over 3 years with change in bowel habits. His has both hips Bilateral. Needs upper and lower scope. Past Medical History Past Medical History: Asthma, Coronary Artery Disease (CAD), GERD/Reflux, Hyperlipidemia, Hypertension, Prostate Disorder, Sleep Apnea/CPAP/BIPAP Additional Past Medical History / Comment(s): Hx diverticulitis History of Any Multi-Drug Resistant Organisms: None Reported Past Surgical History: Appendectomy, Bariatric Surgery, Bowel Resection, Heart Catheterization, Orthopedic Surgery Additional Past Surgical History / Comment(s): repair detached retina, L carpal tunnel sx, sinus sx 03/10, L cataract sleeve gastrectomy 10-10-17 Past Anesthesia/Blood Transfusion Reactions: No Reported Reaction Past Psychological History: No Psychological Hx Reported Smoking Status: Former smoker Past Alcohol Use History: Occasional Additional Past Alcohol Use History / Comment(s): quit 40 years ago, 1ppd for 10 yrs. Past Drug Use History: None Reported - Past Family History Mother Additional Family Medical History / Comment(s): hx. of blood clot somewhere Sister(s) Family Medical History: Cancer Additional Family Medical History / Comment(s): breast Surgical - Exam Vital Signs Temp Pulse Resp BP 97.6 F 67 16 125/79 10/03/24 13:28 10/03/24 13:28 10/03/24 13:28 10/03/24 13:28 Bariatric Checklist Checklist: Plan: Checklist: EGD: 1. Hiatal hernia: 2. H. Pylori: HgbA1c: Vitamin D: Smoking: Former smoker Primary care physician referral: [facility] Psych[facility]ry clearance: Cardiology clearance: Sleep study: Diet journal: VTE risk score: VTE risk level: Rehab needs at discharge:
== END ==
LOC: BARWHC3 12:56
PROVIDERS: ATTEND Surgery Plastic and Reconstructive Surgery
DX: E66.01 Morbid (severe) obesity due to excess calories (principal); Z68.41 Body mass index [BMI] 40.0-44.9, adult; Z87.891 Personal history of nicotine dependence
CPT/HCPCS: 99202

== ENCOUNTER → 2024-10-03 | Outpatient (CLI) | payer BC ==
[2024-10-03 16:43] LABS: Prothrombin Time 10.7 sec (10.0-12.5)
[2024-10-03 18:34] LABS: HCT 48.6 % (39.6-50.0); HGB 15.4 g/dL (13.0-17.0); MCH 29.5 pg (27.0-32.0); MCHC 31.7 g/dL (32.0-37.0); MCV 93.1 FL (80.0-97.0); Mean Platelet Volume 11.6 FL (9.5-12.2); NRBC Per 100 WBC 0 X 10*3/uL (0.00-0.01); Platelet Count 204 X 10*3/uL (140-440); RBC 5.22 X 10*6/uL (4.40-5.60); RDW 12.9 % (11.5-14.5)
[2024-10-03 19:02] LABS: % Iron Saturation 33.86 (15.00-50.00); ALT 26 U/L (10-49); AST 21 U/L (14-35); Albumin 4.5 g/dL (3.8-4.9); Albumin/Globulin Ratio 1.96 Ratio (1.60-3.17); Alkaline Phosphatase 69 U/L (41-126); BUN/Creat Ratio 26.91 Ratio (12.00-20.00); Blood Urea Nitrogen 29.6 mg/dL (9.0-27.0); Calcium 9.8 mg/dL (8.7-10.3); Carbon Dioxide 22.5 mmol/L (21.6-31.8); Chloride 104 mmol/L (96-109); Chol/HDL Ratio 2.23 Ratio; Globulin 2.3 g/dL (1.6-3.3); Glucose 94 mg/dL (70-110); Iron 129 UG/DL (65-175); Magnesium 2.1 mg/dL (1.5-2.4); Phosphorus 3.9 mg/dL (2.4-5.1); Potassium 4.6 mmol/L (3.5-5.5); Sodium 140 mmol/L (135-145); Total Bilirubin 0.4 mg/dL (0.3-1.2); Total Iron Binding Capacity 381 UG/DL (228-460); Total Protein 6.8 g/dL (6.2-8.2)
[2024-10-03 21:59] LABS: Prealbumin 42.6 mg/dL (18.0-42.0)
[2024-10-04 12:11] LABS: Zinc, Serum 94 ug/dL (60-130)
[2024-10-05 07:29] LABS: Vit B1(Thiamine) 97 ug/L (38-122)
== END | disposition home or self-care (01) ==
LOC: LABWHC1 14:55
PROVIDERS: ATTEND Surgery Plastic and Reconstructive Surgery
DX: E55.9 Vitamin D deficiency, unspecified (principal); E66.01 Morbid (severe) obesity due to excess calories; E89.1 Postprocedural hypoinsulinemia; E44.0 Moderate protein-calorie malnutrition; E45 Retarded development following protein-calorie malnutrition; D50.9 Iron deficiency anemia, unspecified; D50.8 Other iron deficiency anemias; K74.1 Hepatic sclerosis; N19 Unspecified kidney failure; K50.90 Crohn's disease, unspecified, without complications; T56.894A Toxic effect of other metals, undetermined, initial encounter; Z68.45 Body mass index [BMI] 70 or greater, adult
CPT/HCPCS: 36415; 80053; 80061; 82306; 82525; 82607; 82728; 82746; 83036; 83540; 83550; 83735; 83970; 84100; 84134; 84255; 84425; 84443; 84590; 84630; 85027; 85610; 85730

== ENCOUNTER → 2024-10-17 | Outpatient (CLI) | payer BC ==
--- NOTE | 2024-10-17 08:45 | US ---
EXAMINATION TYPE: US gallbladder DATE OF EXAM: 10/17/2024 COMPARISON: CT abdomen and pelvis March 22, 2020 CLINICAL INDICATION: Male, 69 years old with history of R10.11 RIGHT UPPER QUADRANT PAIN; increase in bowel movements TECHNIQUE: Grayscale and color Doppler imaging of the right upper quadrant was performed. FINDINGS: EXAM MEASUREMENTS: Liver Length: 18.4 cm Gallbladder Wall: 0.3 cm CBD: 0.6 cm Right Kidney: 9.8 x 4.7 x 5.2 cm NETWORK ENGINEER NOTES: large habitus and bowel gas limits exam Pancreas: not seen due to gas Liver: slightly enlarged, difficult to penetrate Gallbladder: wnl Evidence for sonographic Dior's sign: no CBD: wnl Right Kidney: wnl Suboptimal evaluation of pancreas. Mild hepatomegaly is redemonstrated. Visualized liver heterogeneou sly hyperechoic. Evaluation for focal masses suboptimal due to the heterogeneity. Finding likely on b asis of diffuse fatty infiltration. No biliary dilatation. No right-sided hydronephrosis. IMPRESSION: No gallstones or ultrasound evidence for acute cholecystitis. [facility], , 10/17/2024 8:42 AM
== END | disposition home or self-care (01) ==
LOC: RADUSWWP 07:29
PROVIDERS: ATTEND Surgery Plastic and Reconstructive Surgery
DX: R10.11 Right upper quadrant pain (principal)
CPT/HCPCS: 76705

== ENCOUNTER → 2024-10-26 | Outpatient (CLI) | payer BC ==
--- NOTE | 2024-10-26 09:19 | NM ---
EXAMINATION TYPE: NM hepatobiliary w EF DATE OF EXAM: 10/26/2024 COMPARISON: Gallbladder ultrasound October 17, 2024 CLINICAL INDICATION: Male, 69 years old with history of R10.11 RUQ pain; TECHNIQUE: After the intravenous administration of 5.09 mCi Tc 99m Mebrofenin hepatobiliary scintigra phy is performed. Immediate images post injection. FINDINGS: There is satisfactory initial accumulation of tracer by the liver. The gallbladder is visualized wit hin 15 minutes. The small bowel activity is noted within 20 minutes. At one hour 8 ounces of oral e nsure plus is given to mimic CCK and gallbladder ejection fraction is calculated at 98 %, has not dim inished from the normal range. Therefore there is no scintigraphic evidence of cystic or common bile duct obstruction to suggest acute cholecystitis or gallbladder hypokinesia. IMPRESSION: As above. [facility], , 10/26/2024 9:16 AM
== END | disposition home or self-care (01) ==
LOC: RADNMMAIN 06:34
PROVIDERS: ATTEND Surgery Plastic and Reconstructive Surgery
DX: R10.11 Right upper quadrant pain (principal)
CPT/HCPCS: 78226; A9537

== ENCOUNTER → 2024-11-05 | Day surgery (SDC) | payer BC ==
[~2024-11-05] MED LIST changes: -ACETAMINOPHEN TAB 500 MG TAB PO PRN; -DEXAMETHASONE SOD PHOSPHATE 4 MG/ML 1 ML VIAL IV ONE; -GABAPENTIN 300 MG CAP PO PRN; -HYDROmorphone 0.5 MG/0.5 ML SYRINGE IVP PRN; +LIDOCAINE 2% (PF) 20 MG/ML 5 ML VIAL ONE; -MELOXICAM 7.5 MG TAB PO PRN; -MIDAZOLAM 2 MG/2 ML VIAL IV PRN; -ONDANSETRON 4 MG/2 ML VIAL IVP ONE; +PROPOFOL 10 MG/ML 20 ML VIAL IV ONE; -ROPIVACAINE 246.25 MG, EPINEPHrine 0.5 MG, KETOROLAC 30 MG, cloNIDine HCL/PF 80 MCG, WA... MISCELLANE PRN; -TRANEXAMIC ACID 1,000 MG in SODIUM CHLORIDE 0.9% 100 ML IVPB PRN
[2024-11-05] MEDS: LACTATED RINGERS 1,000 ML IV ONE (07:04)
[2024-11-05 07:13] LABS: Glucose,Whole Blood 92 mg/dL (70-110)
[2024-11-05 07:16] VITALS: TEMP 98
--- NOTE | 2024-11-05 07:37 | P.GSHP ---
History of Present Illness H&P Date: 11/05/24 CHIEF COMPLAINT: GERD and change in bowel habits HISTORY OF PRESENT ILLNESS: The patient is a 69-year-old male who presents with gastroesophageal reflux disease and change in bowel habits for over 6 months. Upper and lower endoscopy were offered for further evaluation and management. PAST MEDICAL HISTORY: Please see list. PAST SURGICAL HISTORY: Please see list. MEDICATIONS: Please see list. ALLERGIES: Please see list. SOCIAL HISTORY: No illicit drug use FAMILY HISTORY: No reports of Crohn disease or ulcerative colitis. REVIEW OF ORGAN SYSTEMS: CONSTITUTIONAL: No reports of fevers or chills. GI: Denies any blood in stools or constipation. Reports chronic diarrhea. PHYSICAL EXAM: VITAL SIGNS: Stable GENERAL: Well-developed pleasant in no acute distress. HEENT: No scleral icterus. Extraocular movements grossly intact. Moist buccal mucosa. NECK: Supple without lymphadenopathy. CHEST: Unlabored respirations. Equal bilateral excursions. CARDIOVASCULAR: Regular rate and rhythm. Distal 2+ pulses. ABDOMEN: Soft, nondistended. MUSCULOSKELETAL: No clubbing, cyanosis, or edema. ASSESSMENT: 1. Gastroesophageal reflux disease 2. Change in bowel habits for over 6 months. PLAN: 1. Recommend proceeding with an upper and lower endoscopy Past Medical History Past Medical History: Asthma, Coronary Artery Disease (CAD), GERD/Reflux, Hyperlipidemia, Hypertension, Prostate Disorder, Sleep Apnea/CPAP/BIPAP Additional Past Medical History / Comment(s): Hx diverticulitis, BPH, cpap History of Any Multi-Drug Resistant Organisms: None Reported Past Surgical History: Appendectomy, Bariatric Surgery, Bowel Resection, Heart Catheterization, Orthopedic Surgery Additional Past Surgical History / Comment(s): repair detached retina, L carpal tunnel sx, sinus sx 03/10, L cataract sleeve gastrectomy 10-10-17, colonoscopy, pain clinic Past Anesthesia/Blood Transfusion Reactions: No Reported Reaction Smoking Status: Former smoker - Past Family History Mother Family Medical History: Coronary Artery Disease (CAD) Additional Family Medical History / Comment(s): hx. of blood clot somewhere Sister(s) Family Medical History: Cancer Additional Family Medical History / Comment(s): breast Father Additional Family Medical History / Comment(s): blood clots Medications and Allergies Home Medications Medication Instructions Recorded Confirmed Type Doxazosin Mesylate [Cardura] 8 mg PO HS 02/10/17 11/01/24 History Finasteride [Proscar] 5 mg PO DAILY 02/10/17 11/01/24 History Losartan/Hydrochlorothiazide 1 tab PO QAM 02/10/17 11/01/24 History [Hyzaar 100-25 Tablet] Sertraline [Zoloft] 100 mg PO QAM 02/10/17 11/01/24 History Acetaminophen [Tylenol Arthritis] 1,300 mg PO BID 03/23/20 11/01/24 History Aspirin EC [Ecotrin Low Dose] 81 mg PO DAILY 03/23/20 11/01/24 History Etodolac [Lodine] 400 mg PO BID 03/23/20 11/01/24 History Montelukast [Singulair] 10 mg PO HS 03/23/20 11/01/24 History Pravastatin Sodium [Pravachol] 40 mg PO HS 03/23/20 11/01/24 History Metoprolol Succinate (ER) [Toprol 25 mg PO HS 10/15/20 11/01/24 History Xl] Verapamil HCl [Verapamil ER] 240 mg PO DAILY 10/15/20 11/01/24 History Budesonide/Formoterol Fumarate 2 puff INHALATION BID 11/01/24 11/01/24 History [Breyna 160-4.5 Mcg Inhaler] Allergies Allergy/AdvReac Type Severity Reaction Status Date / Time No Known Allergies Allergy Verified 11/01/24 13:06 Surgical - Exam Vital Signs Temp Pulse Resp BP Pulse Ox 98 F 88 18 136/78 96 11/05/24 07:05 11/05/24 07:05 11/05/24 07:05 11/05/24 07:05 11/05/24 07:05
--- NOTE | 2024-11-05 08:11 | P.PCN ---
Date of Procedure: 11/05/24 Description of Procedure: PREOPERATIVE DIAGNOSIS: Gastroesophageal reflux disease. POSTOPERATIVE DIAGNOSIS: Status post sleeve gastrectomy. Gastroesophageal reflux disease Diaphragmatic hiatal hernia without obstruction. Acute gastritis of bleeding Acute gastric ulcers of bleeding OPERATION: Esophagogastroduodenoscopy with cold forceps biopsies along the antrum, esophagus, duodenal. SURGEON: Kandi Calzada MD ANESTHESIA: MAC. INDICATIONS: The patient is a 69-year-old male who presents with gastroesophageal reflux disease. He has history sleeve gastrectomy with abdominal pain. Benefits and risks of the procedure were described. Informed consent was obtained. DESCRIPTION: The patient was brought into the endoscopy suite and laid in the left lateral decubitus position. An Olympus gastroscope was passed along the posterior oropharynx down to the distal esophagus where the squamocolumnar junction was at 37 centimeters from the incisors remarkable for chronic erosive esophagitis, LA grade B without ulceration. The stomach was entered where she had a 5-cm hiatal hernia with a diaphragmatic hiatus found at 40 cm. The sleeve reservoir moderately large allowing easy retroflexion of the scope to view the lower esophageal valve. Chronic gastritis albeit mild was found along the antrum with cold biopsies obtained. The first through third portion of the duodenum was examined. The scope had easily retroflexed along the antrum. The stomach was desufflated. The patient tolerated the procedure well. FINDINGS: Acute ulceration found along sleeve. No corkscrewing sleeve gastrectomy. Squamocolumnar junction at 40 cm from the incisors. Diaphragmatic hiatus at 45 cm. Hiatal hernia 5 cm, fixed. Acute gastric ulcerations along the antrum and body of sleeve with bleeding. Biopsies obtained. Acute gastritis with bleeding LA grade B erosive esophagitis. Biopsies obtained. Biopsies obtained of duodenum RECOMMENDATIONS: Omeprazole 40 mg and Carafate 1 g twice daily for 2 to 4 weeks. Repeat upper endoscopy in 4 to 6 weeks advised
--- NOTE | 2024-11-05 08:14 | P.PCN ---
Date of Procedure: 11/05/24 Description of Procedure: PREOPERATIVE DIAGNOSIS: Abnormal stool function Change in bowel habits Chronic diarrhea Colonoscopy screening POSTOPERATIVE DIAGNOSIS: Microscopic colitis OPERATION: Colonoscopy to the cecum, ileocecal valve and appendiceal orifice. Colonoscopy with random cold forceps biopsies for microscopic colitis SURGEON: Kandi Calzada MD. ANESTHESIA: MAC. INDICATIONS: The patient is a 69-year-old male who presents with altered stools including change in bowel habits. Benefits and risks were described and informed consent was obtained. DESCRIPTION OF PROCEDURE: The patient had undergone Suprep. The patient had been brought into the operating room and laid in the left lateral decubitus position. After adequate intravenous sedation, the rectum was examined with 2% lidocaine jelly. No external hemorrhoids were encountered. The rectal tone was within normal limits. No lesions were palpated in the rectal vault. An Olympus colonoscope was advanced until the cecum, ileocecal valve and appendiceal orifice were clearly viewed. The prep was fair. Scattered diverticulosis was encountered. No colonic polyps were found. Cold forceps biopsies randomly were obtained for microscopic colitis. Retroflexion of the scope demonstrated grade 1 internal hemorrhoids without active bleeding or inflammation. The colon was desufflated. The patient had tolerated the procedure well. Withdrawal time was over 6 minutes. FINDINGS: Aronchick preparation quality scale 3 (1-5) Internal hemorrhoids, grade 1 No external prolapsed hemorrhoids. No arteriovenous malformations. No adenomatous polyps. Pandiverticulosis Cold forceps biopsies obtained for microscopic colitis RECOMMENDATIONS: Lower endoscopy as needed Plan - Discharge Summary Discharge Rx Participant: No New Discharge Prescriptions: Continue Doxazosin Mesylate [Cardura] 8 mg PO HS Sertraline [Zoloft] 100 mg PO QAM Losartan/Hydrochlorothiazide [Hyzaar 100-25 Tablet] 1 tab PO QAM Finasteride [Proscar] 5 mg PO DAILY Etodolac [Lodine] 400 mg PO BID Montelukast [Singulair] 10 mg PO HS Pravastatin Sodium [Pravachol] 40 mg PO HS Aspirin EC [Ecotrin Low Dose] 81 mg PO DAILY Acetaminophen [Tylenol Arthritis] 1,300 mg PO BID Verapamil HCl [Calan Sr] 240 mg PO DAILY Budesonide/Formoterol Fumarate [Breyna 160-4.5 Mcg Inhaler] 2 puff INHALATION BID Metoprolol Succinate (ER) [Toprol XL] 25 mg PO HS Discharge Medication List Doxazosin Mesylate [Cardura] 8 mg PO HS 02/10/17 [History] Finasteride [Proscar] 5 mg PO DAILY 02/10/17 [History] Losartan/Hydrochlorothiazide [Hyzaar 100-25 Tablet] 1 tab PO QAM 02/10/17 [History] Sertraline [Zoloft] 100 mg PO QAM 02/10/17 [History] Acetaminophen [Tylenol Arthritis] 1,300 mg PO BID 03/23/20 [History] Aspirin EC [Ecotrin Low Dose] 81 mg PO DAILY 03/23/20 [History] Etodolac [Lodine] 400 mg PO BID 03/23/20 [History] Montelukast [Singulair] 10 mg PO HS 03/23/20 [History] Pravastatin Sodium [Pravachol] 40 mg PO HS 03/23/20 [History] Metoprolol Succinate (ER) [Toprol XL] 25 mg PO HS 10/15/20 [History] Verapamil HCl [Calan Sr] 240 mg PO DAILY 10/15/20 [History] Budesonide/Formoterol Fumarate [Breyna 160-4.5 Mcg Inhaler] 2 puff INHALATION BID 11/01/24 [History] [place] [facility]ment(s[place]Ref[place] - 11/21/24 3:00 pm Patient Instructions/Handouts: Hiatal Hernia (DC), Peptic Ulcer (DC), Diverticulosis Diet (GEN), Diverticulosis (GEN) Activity/Diet/Wound Care/Special Instructions: Repeat colonoscopy 2027, 3 years Discharge Disposition: HOME SELF-CARE
[2024-11-05 08:16] VITALS: RESP 16
[2024-11-05 08:31] VITALS: BP 110/62; PULSE 65
== END | disposition home or self-care (01) ==
LOC: ORWHC2ENDO 06:44
PROVIDERS: ATTEND Surgery Plastic and Reconstructive Surgery
DX: Z12.11 Encounter for screening for malignant neoplasm of colon (principal); K29.50 Unspecified chronic gastritis without bleeding; K44.9 Diaphragmatic hernia without obstruction or gangrene; K25.3 Acute gastric ulcer without hemorrhage or perforation; K21.9 Gastro-esophageal reflux disease without esophagitis; Z98.84 Bariatric surgery status; K52.9 Noninfective gastroenteritis and colitis, unspecified; K64.0 First degree hemorrhoids; K57.30 Diverticulosis of large intestine without perforation or abscess without bleeding; Z79.82 Long term (current) use of aspirin; E78.5 Hyperlipidemia, unspecified; I10 Essential (primary) hypertension; I25.10 Atherosclerotic heart disease of native coronary artery without angina pectoris; Z87.891 Personal history of nicotine dependence
CPT/HCPCS: 45380; 43239; J2704; J2003; 88305